=== PATIENT | female | born 1955 | race Caucasian/White ===

== ENCOUNTER 2016-07-28 14:59 | Emergency (ER) | payer BC ==
[2016-07-28] MEDS ORDERED: NS 1,000 ML IV ONE (15:36)
[2016-07-28 15:51] LABS: % IMMATURE GRANULYOCYTES 0.2 % (0.0-1.1); ABSOLUTE IMMATURE GRANULOCYTES 0.02 10^3/uL (0.00-0.10); ADD DIFF? NO; ADD MORPH? NO; ADD SCAN? NO; ATYPICAL LYMPHOCYTE FLAG 20 (0-99); FRAGMENT RBC FLAG 0 (0-99); HEMATOCRIT 36.9 % (38.0-47.0); HEMOGLOBIN 12.3 g/dL (12.6-16.3); LEFT SHIFT FLG 0 (0-99); LIPEMIA HEMOLYSIS FLAG 80 (0-99); MEAN CELL HEMOGLOBIN 30.4 pg (27.9-34.1); MEAN CELL HEMOGLOBIN CONCENTR. 33.3 g/dL (32.4-36.7); MEAN CELL VOLUME 91.1 fL (81.5-99.8); MEAN PLATELET VOLUME 11.3 fL (8.7-11.7); PLATELET CLUMPS FLAG 0 (0-99); PLATELET COUNT 283 10^3/uL (150-400); RED BLOOD CELL COUNT 4.05 10^6/uL (4.18-5.33); RED CELL DISTRIBUTION WIDTH 12.9 % (11.5-15.2)
[2016-07-28 16:10] LABS: ALANINE AMINOTRANSFERASE 29 IU/L (9-52); ALBUMIN 4.5 g/dL (3.5-5.0); ALKALINE PHOSPHATASE 63 IU/L (38-126); ANION GAP 12 mEq/L (8-16); ASPARTATE AMINOTRANSFERASE 17 IU/L (14-46); BILIRUBIN,TOTAL 0.7 mg/dL (0.1-1.4); BILIRUBIN-CONJUGATED 0.3 mg/dL (0.0-0.5); BILIRUBIN-UNCONJUGATED 0.4 mg/dL (0.0-1.1); CALCIUM 10.4 mg/dL (8.5-10.4); CARBON DIOXIDE 24 mEq/l (22-31); CHLORIDE 105 mEq/L (97-110); CREATININE 0.9 mg/dL (0.6-1.0); GLOMERULAR FILTRATION RATE > 60; GLUCOSE 104 mg/dL (70-100); POTASSIUM 4.1 mEq/L (3.5-5.2); SODIUM 141 mEq/L (134-144); TOTAL PROTEIN 6.9 g/dL (6.3-8.2)
[2016-07-28] MEDS ORDERED: GASTROVIEW 30 ML UNIT PO ONE (16:40)
[2016-07-28] MEDS ORDERED: ONDANSETRON 4 MG/2 ML VIAL IVP ONE (16:44)
--- NOTE | 2016-07-28 16:44 | EDPHY ---
H & P Time Seen by Provider: 07/28/16 15:36 HPI/ROS: CHIEF COMPLAINT: Right upper quadrant pain HISTORY OF PRESENT ILLNESS: 61-year-old female presents with right upper quadrant pain. Onset of moderate pain at 12:30 p.m. this morning. The pain has been waxing and waning since then and is currently 6/10. Associated with nausea. She ate breakfast and lunch today, which did not exacerbate the pain. No prior similar episodes. No other associated symptoms or known alleviating/ aggravating factors. REVIEW OF SYSTEMS: Constitutional: No fever, no chills Eyes: No visual changes ENT: No sore throat Respiratory: No cough, no shortness of breath Cardiac: No chest pain Genitourinary: no dysuria Musculoskeletal: No leg pain or swelling Skin: No rash Neurological: No headache, no weakness Psychiatric: No depression Past Medical/Surgical History: Hysterectomy Diabetes Social History: Lives alone PCP: Dr. Jean Smoking Status: Never smoked Physical Exam: General Appearance: Alert, pleasant Eyes: Pupils equal and round, no conjunctival pallor ENT, Mouth: Mucous membranes moist Neck: Normal inspection Respiratory: Lungs are clear to auscultation Cardiovascular: Regular rate and rhythm Gastrointestinal: Abdomen is soft, right upper quadrant tenderness Neurological: A&O, nonfocal, normal gait Skin: Warm and dry Extremities: normal inspection Psychiatric: Mood and affect normal Constitutional: Initial Vital Signs Temperature (C) 36.4 C 07/28/16 15:15 Heart Rate 70 07/28/16 15:15 Respiratory Rate 18 07/28/16 15:15 Blood Pressure 146/97 H 07/28/16 15:15 O2 Sat (%) 99 07/28/16 15:15 O2 Delivery Mode Room Air Allergies/Adverse Reactions: cephalexin monohydrate [From Keflex] Allergy (Verified 07/28/16 15:15) Penicillins Allergy (Verified 05/26/15 07:55) Home Medications: Medication Instructions Recorded Atorvastatin Calcium [Lipitor] 05/26/15 Fluticasone Hfa 110 Mcg 05/26/15 Hydrochlorothiazide [HCTZ (*)] 05/26/15 Loratadine [Claritin] 05/26/15 Losartan Potassium [Cozaar] 05/26/15 Montelukast Sodium [Singulair] 05/26/15 Oxybutynin Chloride [Ditropan] 05/26/15 Hydrocodone/APAP 5/325 [[place] 1 - 2 tab PO Q4H PRN #15 tab 07/28/16 5/325] Medical Decision Making - Diagnostics Imaging: Right upper quadrant ultrasound read by Dr. Finnegan reveals a pancreatic cyst and a dilated pancreatic duct, no gallstones CT scan of the abdomen and pelvis read by the radiologist reveals a 5 x 4 cm mass at the head of the pancreas. ED Course/Re-evaluation: This pt presents with RUQ pain, RUQ sono ordered to r/o gallstones. Ultrasound results discussed with the patient. Morphine and Zofran IV given for pain control. CT scan of the abdomen ordered to further evaluate the pancreatic cyst. LFT's/lipase normal; no evidence of obstruction. CT scan concerning for pancreatic cancer. Results were discussed with the patient. I consulted Dr. Braden Whitley. He will call the patient to arrange for biopsy. Abd exam unchanged on d/c. Differential Diagnosis: Differential diagnosis includes though it is not limited to appendicitis, cholecystitis, diverticulitis, pyelonephritis, bowel perforation, small bowel obstruction. - Data Points Laboratory Results: Laboratory Results 07/28/16 15:41 07/28/16 15:41 Medications Given: Discontinued Medications Diatrizoate Meglum/Diatrizoate Sod (Gastroview 66-10 Soln) 30 ml PO EDNOW ONE Stop: 07/28/16 16:41 Last Admin: 07/28/16 16:45 Dose: 30 ml Sodium Chloride (Ns) 1,000 mls @ 0 mls/hr IV ONCE ONE PRN Reason: Wide Open Stop: 07/28/16 15:37 Last Admin: 07/28/16 15:50 Dose: 1,000 mls Morphine Sulfate (Morphine) 4 mg IVP EDNOW ONE Stop: 07/28/16 16:45 Last Admin: 07/28/16 16:49 Dose: 4 mg Ondansetron HCl (Zofran) 4 mg IVP EDNOW ONE Stop: 07/28/16 16:45 Last Admin: 07/28/16 16:49 Dose: 4 mg Departure - Departure Disposition: Home, Routine, Self-Care Clinical Impression: Pancreatic mass Condition: Good Instructions: Hydrocodone/Acetaminophen (By mouth), Abdominal Pain (ED) Referrals: Prashant Jean MD [Primary Care Provider] - As per Instructions Braden Whitley MD, FACG [Medical Doctor] - As per Instructions ([facility] will call you with an appointment time.) Prescriptions: Hydrocodone/APAP 5/325 [[place] 5/325] 1 - 2 tab PO Q4H PRN #15 tab PRN Reason: Pain, Moderate
[2016-07-28] MEDS ORDERED: IOPAMIDOL (ISOVUE-300) 100 ML BTL IV ONE (17:19)
[2016-07-28 17:48] VITALS: RESP 16
[2016-07-28 20:02] VITALS: BP 134/78; PULSE 78; TEMP 98.6; O2SAT 97
== END 2016-07-28 20:01 | disposition home or self-care (01) ==
DX: K86.89 Other specified diseases of pancreas (principal); E11.9 Type 2 diabetes mellitus without complications
CPT/HCPCS: 96374; Q9967

== ENCOUNTER 2016-08-02 13:03 | Day surgery (SDC) | payer BC ==
[2016-08-02] MEDS ORDERED: MIDAZOLAM 2 MG/2 ML VIAL ONE (14:29)
[2016-08-02] MEDS ORDERED: PROPOFOL/EMULSION 500 MG/50 ML BOTTLE IV ONE (14:29)
[2016-08-02] MEDS ORDERED: LIDOCAINE 2% 5 ML SDV ONE (14:52)
[2016-08-02] MEDS ORDERED: PROPOFOL 200 MG/20 ML VIAL ONE ×2 (15:04)
--- NOTE | 2016-08-02 19:16 | GPN ---
[f rep st] PROCEDURE NOTE PREPROCEDURE DIAGNOSIS: Pancreatic neck mass. POSTPROCEDURE DIAGNOSIS: Pancreatic neck mass. PROCEDURES: Esophagogastroduodenoscopy with biopsies, endoscopic ultrasound with fine-needle aspira tion. MEDICATIONS: Monitored anesthesia care. INDICATION: The patient is a 61-year-old female, who presented to the emergency room with abdominal pain. CT scan of the abdomen showed a 5.1 x 4.2 cm mass in the pancreatic head and body. The mass was adjacent to the splenic artery associated with narrowing. There was also narrowing of the hepa tic artery. The patient is here for EUS FNA biopsy. The risks and the benefits of the procedure we re discussed with the patient. Consent obtained. Risks include, but not limited to, bleeding, perf oration, risks associated with sedation. The patient is ASA class 3. DESCRIPTION OF PROCEDURE: The end-viewing endoscope went into the esophagus, into the stomach and s econd portion of the duodenum. The esophagus appears normal. The GE junction is normal. There is erythema and erosions in the stomach consistent with gastritis. Biopsies were taken using cold biop sy forceps of the gastric mucosa to evaluate for Helicobacter pylori. The duodenum and second porti on were normal. Next, the curvilinear echo endoscope was inserted into the esophagus, into stomach, and second portion of the duodenum. Ultrasound examination of the esophagus, stomach and duodenum were performed. There was a large pancreatic neck body mass measuring 31.8 mm x 31.9 mm. The mass abuts the portal splenic confluence in the hepatic artery. No lymphadenopathy was seen. Next, 2 bi opsies were taken using 22-gauge FNA needle from within the duodenal bulb of the mass. Color Dopple r was used. Stylette was used. Pathologist was present. The cellularity was thought to be adequat e for evaluation. A 2nd 22-gauge FNA needle was used to biopsy the lesion from within the gastric c urvature as well to ensure adequate sampling. There was distal pancreatic body and tail atrophy wit h pancreatic duct dilation. IMPRESSION: Pancreatic neck body mass measuring 31.8 mm x 31.9 mm with abutment of the portal splen ic confluence and splenic artery, status post fine-needle aspiration biopsy. RECOMMENDATIONS: 1. Follow up the final biopsy results. 2. Consultation with Medical and Surgical Oncology. 3. Although her liver function tests are normal and her bile duct is not yet dilated, she may need ERCP with biliary stent in the near future. If she develops jaundice or abnormal liver function adalid ts, we will arrange for stent placement across her bile duct. Thank you for allowing me to participate in the care of your patient. Please do not hesitate to nissa helm with questions. /[id number]/MODL
== END 2016-08-02 17:10 | disposition home health service (06) ==
LOC: FSGY 13:03
PROVIDERS: ATTEND Internal Medicine Gastroenterology
PROC: 0FBG4ZX Excision of Pancreas, Percutaneous Endoscopic Approach, Diagnostic (ICD-10-PCS; principal; 2016-08-02 14:45)
PROC: 0DB68ZX Excision of Stomach, Via Natural or Artificial Opening Endoscopic, Diagnostic (ICD-10-PCS; principal; 2016-08-02 14:45)
DX: K86.9 Disease of pancreas, unspecified (principal); E11.9 Type 2 diabetes mellitus without complications; I10 Essential (primary) hypertension; E66.9 Obesity, unspecified
CPT/HCPCS: J2250; J2704

== ENCOUNTER → 2016-08-16 | Outpatient (CLI) | payer BC | LOC: FIMAGING 14:30 | PROVIDERS: ATTEND Surgery | DX: Z45.2 Encounter for adjustment and management of vascular access device (principal); K86.9 Disease of pancreas, unspecified ==

== ENCOUNTER → 2016-08-30 | Outpatient (CLI) | payer BC | LOC: FIMAGING 13:13 | PROVIDERS: ATTEND Nurse Practitioner | DX: R60.9 Edema, unspecified (principal); C25.9 Malignant neoplasm of pancreas, unspecified ==

== ENCOUNTER → 2016-10-15 | Outpatient (CLI) | payer BC | LOC: FIMAGING 15:30 | PROVIDERS: ATTEND Nurse Practitioner | DX: R60.9 Edema, unspecified (principal) ==

== ENCOUNTER → 2018-03-10 | Outpatient (CLI) | payer BC | LOC: FIMAGING 14:59 | PROVIDERS: ATTEND Internal Medicine Hematology & Oncology | DX: K86.9 Disease of pancreas, unspecified (principal); K83.8 Other specified diseases of biliary tract ==

== ENCOUNTER 2018-05-19 07:40 | Inpatient (IN) | payer BC ==
[2018-05-19 09:12] LABS: PLATELET COUNT 197 10^3/uL (150-400)
[2018-05-19] MEDS ORDERED: ONDANSETRON 4 MG/2 ML VIAL IVP ONE (09:16)
[2018-05-19] MEDS ORDERED: HYDROmorphONE/DILAUDID 1 MG/ML INJ IVP ONE (09:16)
--- NOTE | 2018-05-19 09:19 | EDPHY ---
H & P Stated Complaint: hx pancreatic cancer awakened today with ruq abd pain Time Seen by Provider: 05/19/18 09:04 HPI/ROS: CHIEF COMPLAINT: Right upper quadrant abdominal pain since 4:00 a.m. Today HISTORY OF PRESENT ILLNESS: 63-year-old female history of pancreatic cancer, history of biliary duct stent in March, awoke with right upper quadrant constant sharp stabbing pain at 4:00 a.m. today. Not described as pleuritic. No radiation. No nausea or vomiting. Bowel movements normal. No dyspnea. No syncope or near syncope. No peripheral edema. No cold or flu-like symptoms Last oral intake last night Primary oncology: Dr. Mariano Dumont REVIEW OF SYSTEMS: 10 systems reviewed and negative with the exception of the elements mentioned in the history of present illness PAST MEDICAL & SURGICAL HISTORY: Pancreatic cancer. Biliary duct stent. Appendectomy. SOCIAL HISTORY: Nonsmoker PHYSICAL EXAM (Prior to examination, patient consented to physical exam, hands were washed and my usual and customary physical exam procedures followed) 1) GENERAL: Well-developed, well-nourished, alert and oriented. Appears to be in no acute distress. 2) HEAD: Normocephalic, atraumatic 3) HEENT: Pupils equal, round, reactive to light bilaterally. Sclera anicteric. Nasopharynx, oropharynx, clear, no lesions. Dry mucous membranes. 4) NECK: Full range of motion, no meningeal signs. 5) LUNGS: Clear auscultation bilaterally, no wheezes, no rhonchi, no retractions. 6) HEART: Regular rate and rhythm, no murmur, no heave, no gallop. 7) ABDOMEN: No guarding, tender to palpation right upper quadrant, negative McBurney's, negative Rovsing's, negative peritoneal sign, 8) MUSCULOSKELETAL: Moving all extremities, no focal areas of tenderness, no obvious trauma. No peripheral edema or discoloration. 9) BACK: No CVA tenderness, no midline vertebral tenderness, no fluctuance, no step-off, no obvious trauma, no visual or palpable abnormality. 10) SKIN: No rash, no petechiae. 11) Psychiatric: Patient is oriented X 3, there is no agitation. DIFFERENTIAL DIAGNOSIS: In no particular order including but not limited to pulmonary embolus, acute cholecystitis, choledocholithiasis - Personal History Current Tetanus Diphtheria and Acellular Pertussis (TDAP): Yes - Medical/Surgical History Hx Asthma: No Hx Chronic Respiratory Disease: No Hx Diabetes: No Hx Cardiac Disease: No Hx Renal Disease: No Hx Cirrhosis: No Hx Alcoholism: No Hx HIV/AIDS: No Hx Splenectomy or Spleen Trauma: No Other PMH: PMH: HTN, high chol, arthritis. PSH: hysterectomy, cyst removal, tonsels, appy, dental. pancreatic cancer - Social History Smoking Status: Never smoked Constitutional: Initial Vital Signs Temperature (C) 36.8 C 05/19/18 07:44 Heart Rate 78 05/19/18 07:44 Respiratory Rate 18 05/19/18 07:44 Blood Pressure 118/79 05/19/18 07:44 O2 Sat (%) 98 05/19/18 07:44 O2 Delivery Mode Room Air Allergies/Adverse Reactions: cephalexin monohydrate [From Keflex] Allergy (Verified 05/19/18 14:26) Rash Penicillins Allergy (Verified 05/19/18 14:26) Rash Yeast Allergy (Verified 05/19/18 07:43) Home Medications: Medication Instructions Recorded Hydrochlorothiazide [HCTZ (*)] DAILY 05/26/15 Acetaminophen [Tylenol ES 500 mg 1,000 mg PO Q8H PRN 05/19/18 (*)] Ascorbic Acid [Vitamin C] 1,000 mg PO DAILY 05/19/18 Atorvastatin Calcium [Lipitor 10 10 mg PO DAILY 05/19/18 mg (*)] Cholecalciferol Vit D3 [Vitamin D3 1,000 units PO DAILY 05/19/18 (*)] Cyanocobalamin [Vitamin B12 (*)] 1,000 mcg PO DAILY 05/19/18 Gabapentin [Neurontin 300 MG (*)] 600 mg PO HS 05/19/18 Loratadine [Claritin 10 mg] 10 mg PO DAILY PRN 05/19/18 Losartan Potassium [Cozaar 25 mg 25 mg PO DAILY 05/19/18 (*)] Montelukast Sodium [Singulair 10 10 mg PO DAILY PRN 05/19/18 mg (*)] Oxybutynin Chloride [Ditropan Xl] 10 mg PO DAILY 05/19/18 Potassium Cl [Klor-Con] 10 meq PO BID 05/19/18 Medical Decision Making - Diagnostics Imaging Results: Imaging Impressions Chest X-Ray 05/19/18 07:56 Impression: There is no acute intrathoracic abnormality. Abdomen CT 05/19/18 09:36 Impression: Chest: 1. No evidence of pulmonary embolism or pneumonia. Abdomen: 1. 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 Intrahepatic portal veins are patent. 2. Interval placement of metal biliary stent with gallbladder findings concerning for acute cholecystitis. 3. Thick-walled, edematous cecum may be secondary to adjacent gallbladder inflammation, however concomitant typhlitis is an additional consideration in a neutropenic patient. Pelvis: 1. Moderate ascites without adenopathy or mass. Maria C Parada was notified of these findings by telephone at 11:30 AM on 05/19/2018 Chest/Thorax CTA 05/19/18 09:36 Impression: Chest: 1. No evidence of pulmonary embolism or pneumonia. Abdomen: 1. 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 Intrahepatic portal veins are patent. 2. Interval placement of metal biliary stent with gallbladder findings concerning for acute cholecystitis. 3. Thick-walled, edematous cecum may be secondary to adjacent gallbladder inflammation, however concomitant typhlitis is an additional consideration in a neutropenic patient. Pelvis: 1. Moderate ascites without adenopathy or mass. Maria C Parada was notified of these findings by telephone at 11:30 AM on 05/19/2018 Abdomen Ultrasound 05/19/18 11:40 Impression: 1. Gallbladder distention with wall thickening and internal sludge/debris, new since February. Findings are suspicious for early acute cholecystitis. 2. Large pancreatic mass, incompletely seen by ultrasound. The biliary stent contains internal debris and possible tumor infiltration. There is mild central intrahepatic ductal dilatation on the right. Pneumobilia is seen on the left. 3. Cavernous transformation of the portal vein. 4. Small volume ascites. Findings and recommendations discussed with Valencia Parker at 1402 hour, 05/19. Images reviewed myself ED Course/Re-evaluation: 9:18 a.m.: I reviewed the patient's old medical records. Patient has a history of pancreatic cancer. Patient I discussed possible etiologies for symptoms which include, but not limited to, biliary pathology, peripheral pulmonary embolus. High pretest probability for pulmonary embolus. D-dimer was ordered prior to my evaluating the patient. Recommended CT angiography of the chest as well as abdomen and pelvis. More than likely hospitalization. Care of patient under supervision of secondary supervising physician Dr Neelima Pascual with whom I discussed case. 11:40 a.m.: Imaging results of the chest abdomen pelvis is negative for PE, elan cholecystic fluid noted concerning for possible acute cholecystitis. Radiologist recommended ultrasound. This will be ordered. 2:00 p.m.: Ultrasound imaging shows gallbladder wall thickening, pericholecystic fluid, equivocal findings possible early acute cholecystitis. Will consult with surgery 2:10 p.m.: Consultation with hospitalist Dr. Richardson Yi who will admit patient 2:14 p.m.: Consultation with surgeon Dr. Norman who will consult - Data Points Laboratory Results: Laboratory Results 05/19/18 08:50 05/19/18 08:50 05/19/18 05/19/18 05/19/18 09:00 08:50 08:50 WBC RBC Hgb Hct MCV MCH MCHC RDW Plt Count MPV Neut % (Auto) Lymph % (Auto) [place] % (Auto) Eos % (Auto) Baso % (Auto) Nucleat RBC Rel Count Absolute Neuts (auto) Absolute Lymphs (auto) Absolute Monos (auto) Absolute Eos (auto) Absolute Basos (auto) Absolute Nucleated RBC Immature Gran % Immature Gran # D-Dimer 1.06 ug/mLFEU H ug/mLFEU (0.00-0.50) Sodium 138 mEq/L mEq/L (135-145) Potassium 3.3 mEq/L L mEq/L (3.5-5.2) Chloride 105 mEq/L mEq/L (97-110) Carbon Dioxide 23 mEq/l mEq/l (22-31) Anion Gap 10 mEq/L mEq/L (6-14) BUN 18 mg/dL mg/dL (7-23) Creatinine 0.8 mg/dL mg/dL (0.6-1.0) Estimated GFR > 60 Glucose 134 mg/dL H mg/dL (70-100) Calcium 9.8 mg/dL mg/dL (8.5-10.4) Total Bilirubin 1.1 mg/dL mg/dL (0.1-1.4) Conjugated Bilirubin 0.4 mg/dL mg/dL (0.0-0.5) Unconjugated Bilirubin 0.7 mg/dL mg/dL (0.0-1.1) AST 21 IU/L IU/L (14-46) ALT 27 IU/L IU/L (9-52) Alkaline Phosphatase 124 IU/L IU/L (38-126) POC Troponin I 0.01 ng/mL ng/mL (0.00-0.08) NT-Pro-B Natriuret Pep 275 pg/mL H pg/mL (0-125) Total Protein 6.6 g/dL g/dL (6.3-8.2) Albumin 3.8 g/dL g/dL (3.5-5.0) Lipase 12 IU/L L IU/L (23-300) 05/19/18 08:50 WBC 6.91 10^3/uL 10^3/uL (3.80-9.50) RBC 3.91 10^6/uL L 10^6/uL (4.18-5.33) Hgb 11.6 g/dL L g/dL (12.6-16.3) Hct 34.8 % L % (38.0-47.0) MCV 89.0 fL fL (81.5-99.8) MCH 29.7 pg pg (27.9-34.1) MCHC 33.3 g/dL g/dL (32.4-36.7) RDW 15.2 % % (11.5-15.2) Plt Count 197 10^3/uL 10^3/uL (150-400) MPV 11.6 fL fL (8.7-11.7) Neut % (Auto) 58.8 % % (39.3-74.2) Lymph % (Auto) 25.9 % % (15.0-45.0) [place] % (Auto) 10.4 % % (4.5-13.0) Eos % (Auto) 4.1 % % (0.6-7.6) Baso % (Auto) 0.7 % % (0.3-1.7) Nucleat RBC Rel Count 0.0 % % (0.0-0.2) Absolute Neuts (auto) 4.06 10^3/uL 10^3/uL (1.70-6.50) Absolute Lymphs (auto) 1.79 10^3/uL 10^3/uL (1.00-3.00) Absolute Monos (auto) 0.72 10^3/uL 10^3/uL (0.30-0.80) Absolute Eos (auto) 0.28 10^3/uL 10^3/uL (0.03-0.40) Absolute Basos (auto) 0.05 10^3/uL 10^3/uL (0.02-0.10) Absolute Nucleated RBC 0.00 10^3/uL 10^3/uL (0-0.01) Immature Gran % 0.1 % % (0.0-1.1) Immature Gran # 0.01 10^3/uL 10^3/uL (0.00-0.10) D-Dimer Sodium Potassium Chloride Carbon Dioxide Anion Gap BUN Creatinine Estimated GFR Glucose Calcium Total Bilirubin Conjugated Bilirubin Unconjugated Bilirubin AST ALT Alkaline Phosphatase POC Troponin I NT-Pro-B Natriuret Pep Total Protein Albumin Lipase Medications Given: Discontinued Medications Hydromorphone HCl (Dilaudid) 1 mg IVP EDNOW ONE Stop: 05/19/18 09:17 Last Admin: 05/19/18 09:30 Dose: 1 mg Hydromorphone HCl (Dilaudid) 1 mg IVP EDNOW ONE Stop: 05/19/18 14:03 Last Admin: 05/19/18 14:12 Dose: 1 mg Ondansetron HCl (Zofran) 4 mg IVP EDNOW ONE Stop: 05/19/18 09:17 Last Admin: 05/19/18 09:28 Dose: 4 mg Point of Care Test Results: Chemistry 05/19/18 09:00 POC Troponin I 0.01 ng/mL ng/mL (0.00-0.08) Departure - Departure Disposition: [facility] Acute Clinical Impression: Possible acute cholecystitis, History of pancreatic cancer Condition: Fair
[2018-05-19] MEDS ORDERED: IOPAMIDOL (ISOVUE 370) 100 ML BTL IV ONE (09:40)
[2018-05-19] MEDS ORDERED: HYDROmorphONE/DILAUDID 2 MG/ML INJ IVP ONE (14:02)
--- NOTE | 2018-05-19 14:46 | CPEKG ---
Test Reason : OPEN Blood Pressure : / mmHG Vent. Rate : 069 BPM Atrial Rate : 069 BPM P-R Int : 177 ms QRS Dur : 102 ms QT Int : 426 ms P-R-T Axes : 057 066 056 degrees QTc Int : 457 ms Sinus rhythm Low voltage, precordial leads Confirmed by Neelima Pascual ([id number]) on 05/19/2018 2:45:40 PM Referred By: Confirmed By:Neelima Pascual
[2018-05-19] MEDS ORDERED: ACETAMINOPHEN 325 MG TAB PO PRN (14:55)
[2018-05-19] MEDS ORDERED: ONDANSETRON 4 MG/2 ML VIAL IVP PRN (14:55)
[2018-05-19] MEDS ORDERED: ONDANSETRON DISINTEGRATING 4 MG TAB PO PRN (14:55)
[2018-05-19] MEDS ORDERED: MONTELUKAST SODIUM 10 MG TAB PO PRN (14:56)
[2018-05-19] MEDS ORDERED: PROTOCOL POTASSIUM 1 DOSE MISC PRN (14:58)
--- NOTE | 2018-05-19 15:27 | PDGENHP ---
History and Physical - Chief Complaint RUQ pain - History of Present Illness 63yo F with history of pancreatic cancer, CBD stent here with acute onset RUQ pain. Woke her up from sleep at 4am. No radiation. No associated n/v/d but pain making her feel miserable so came to ED. Was feeling a little fatigued yesterday with minimal appetite so didn't eat much for dinner. Denies unusual food exposures, fevers/chills, rashes. No respiratory symptoms. She has not been on chemotherapy since 08/2016. She had CBD stent placed 03/16/2018 due to biliary obstruction related to her cancer. In the ED, abdominal CT shows findings consistent with early acute cholecystitis. RUQ ultrasound shows sludge in gallbladder and debris within CBD stent. ED provider consulted Dr Norman of surgery. History Information - Allergies/Home Medication List Allergies/Adverse Reactions: cephalexin monohydrate [From Keflex] Allergy (Verified 05/19/18 14:26) Rash Penicillins Allergy (Verified 05/19/18 14:26) Rash Yeast Allergy (Verified 05/19/18 07:43) Home Medications: Hydrochlorothiazide [HCTZ (*)] 25 mg PO DAILY 05/26/15 [Last Taken Unknown] Acetaminophen [Tylenol ES 500 mg (*)] 1,000 mg PO Q8H PRN 05/19/18 [Last Taken Unknown] Ascorbic Acid [Vitamin C] 1,000 mg PO DAILY 05/19/18 [Last Taken Unknown] Atorvastatin Calcium [Lipitor 10 mg (*)] 10 mg PO DAILY 05/19/18 [Last Taken Unknown] Cholecalciferol Vit D3 [Vitamin D3 (*)] 1,000 units PO DAILY 05/19/18 [Last Taken Unknown] Cyanocobalamin [Vitamin B12 (*)] 1,000 mcg PO DAILY 05/19/18 [Last Taken Unknown ] Gabapentin [Neurontin 300 MG (*)] 600 mg PO HS 05/19/18 [Last Taken Unknown] Loratadine [Claritin 10 mg] 10 mg PO DAILY PRN 05/19/18 [Last Taken Unknown] Losartan Potassium [Cozaar 25 mg (*)] 25 mg PO DAILY 05/19/18 [Last Taken Unknown] Montelukast Sodium [Singulair 10 mg (*)] 10 mg PO DAILY PRN 05/19/18 [Last Taken Unknown] Oxybutynin Chloride [Ditropan Xl] 10 mg PO DAILY 05/19/18 [Last Taken Unknown] Potassium Cl [Klor-Con] 10 meq PO BID 05/19/18 [Last Taken Unknown] I have personally reviewed and updated: family history, medical history, social history, surgical history Past Medical History: pancreatic cancer (diagnosed 07/2016, followed by Dr Dumont , underwent chemo and XRT, last on chemo 08/2017), HTN - Surgical History Additional surgical history: CBD stent placement, no abdominal surgeries - Family History Positive for: non-pertinent - Social History Smoking Status: Never smoked Alcohol Use: None Drug Use: None Additional social history: Lives alone, sister (CHAYO Urena) at bedside Review of Systems Review of Systems: ROS: 10pt was reviewed & negative except for what was stated in HPI & below Physical Exam Physical Exam: Temp Pulse Resp BP Pulse Ox 36.8 C 88 16 123/74 H 93 05/19/18 07:44 05/19/18 14:36 05/19/18 14:36 05/19/18 14:36 05/19/18 14:36 Constitutional: no apparent distress, appears nourished, not in pain Eyes: PERRL, anicteric sclera, EOMI Ears, Nose, Mouth, Throat: moist mucous membranes, hearing normal, ears appear normal, no oral mucosal ulcers Cardiovascular: regular rate and rhythym, no murmur, rub, or gallop, No edema Respiratory: no respiratory distress, no rales or rhonchi, clear to auscultation Gastrointestinal: tenderness (RUQ without rebuond, ), kingsley's sign, No distension Genitourinary: no bladder fullness, no bladder tenderness Skin: warm, normal color, no rashes or abrasions, no fluctuance, no induration, No mottled Musculoskeletal: full muscle strength, no muscle tenderness, normal joint ROM, no joint effusions Neurologic: AAOx3 Psychiatric: interacting appropriately, not anxious, not encephalopathic, thought process linear Lab Data & Imaging Review 05/19/18 08:50 05/19/18 08:50 WBC 6.91 10^3/uL (3.80-9.50) 05/19/18 08:50 RBC 3.91 10^6/uL (4.18-5.33) L 05/19/18 08:50 Hgb 11.6 g/dL (12.6-16.3) L 05/19/18 08:50 Hct 34.8 % (38.0-47.0) L 05/19/18 08:50 MCV 89.0 fL (81.5-99.8) 05/19/18 08:50 MCH 29.7 pg (27.9-34.1) 05/19/18 08:50 MCHC 33.3 g/dL (32.4-36.7) 05/19/18 08:50 RDW 15.2 % (11.5-15.2) 05/19/18 08:50 Plt Count 197 10^3/uL (150-400) 05/19/18 08:50 MPV 11.6 fL (8.7-11.7) 05/19/18 08:50 Neut % (Auto) 58.8 % (39.3-74.2) 05/19/18 08:50 Lymph % (Auto) 25.9 % (15.0-45.0) 05/19/18 08:50 Brewster % (Auto) 10.4 % (4.5-13.0) 05/19/18 08:50 Eos % (Auto) 4.1 % (0.6-7.6) 05/19/18 08:50 Baso % (Auto) 0.7 % (0.3-1.7) 05/19/18 08:50 Nucleat RBC Rel Count 0.0 % (0.0-0.2) 05/19/18 08:50 Absolute Neuts (auto) 4.06 10^3/uL (1.70-6.50) 05/19/18 08:50 Absolute Lymphs (auto) 1.79 10^3/uL (1.00-3.00) 05/19/18 08:50 Absolute Monos (auto) 0.72 10^3/uL (0.30-0.80) 05/19/18 08:50 Absolute Eos (auto) 0.28 10^3/uL (0.03-0.40) 05/19/18 08:50 Absolute Basos (auto) 0.05 10^3/uL (0.02-0.10) 05/19/18 08:50 Absolute Nucleated RBC 0.00 10^3/uL (0-0.01) 05/19/18 08:50 Immature Gran % 0.1 % (0.0-1.1) 05/19/18 08:50 Immature Gran # 0.01 10^3/uL (0.00-0.10) 05/19/18 08:50 D-Dimer 1.06 ug/mLFEU (0.00-0.50) H 05/19/18 08:50 Sodium 138 mEq/L (135-145) 05/19/18 08:50 Potassium 3.3 mEq/L (3.5-5.2) L 05/19/18 08:50 Chloride 105 mEq/L (97-110) 05/19/18 08:50 Carbon Dioxide 23 mEq/l (22-31) 05/19/18 08:50 Anion Gap 10 mEq/L (6-14) 05/19/18 08:50 BUN 18 mg/dL (7-23) 05/19/18 08:50 Creatinine 0.8 mg/dL (0.6-1.0) 05/19/18 08:50 Estimated GFR > 60 05/19/18 08:50 Glucose 134 mg/dL (70-100) H 05/19/18 08:50 Calcium 9.8 mg/dL (8.5-10.4) 05/19/18 08:50 Total Bilirubin 1.1 mg/dL (0.1-1.4) 05/19/18 08:50 Conjugated Bilirubin 0.4 mg/dL (0.0-0.5) 05/19/18 08:50 Unconjugated Bilirubin 0.7 mg/dL (0.0-1.1) 05/19/18 08:50 AST 21 IU/L (14-46) 05/19/18 08:50 ALT 27 IU/L (9-52) 05/19/18 08:50 Alkaline Phosphatase 124 IU/L (38-126) 05/19/18 08:50 POC Troponin I 0.01 ng/mL (0.00-0.08) 05/19/18 09:00 NT-Pro-B Natriuret Pep 275 pg/mL (0-125) H 05/19/18 08:50 Total Protein 6.6 g/dL (6.3-8.2) 05/19/18 08:50 Albumin 3.8 g/dL (3.5-5.0) 05/19/18 08:50 Lipase 12 IU/L (23-300) L 05/19/18 08:50 Visualized and Interpreted imaging results: Yes Interpretation: RUQ US: gallbladder distention with wall thickening and internal slugde, new since February. Large pancreatic mass. Biliary stent contains internal debris and possible tumor infiltration; pneumobilia on the left. Cavernous transformation of portal vein. Small volume ascites. CT c/a/p: No PE or pneumonia. Progression of pancreatic tumor with development of ascites and cavernous transformation of main portal vein. Intraphepatic portal veins. Interval placement of metal biliary stent wtih gallbladder findings concerning for acute cholecystitis. Thick walled edematous cecum. Moderate ascites. Assessment & Plan Assessment: 63yo F with history of pancreatic cancer, CBD stent here with acute onset RUQ pain found to have imaging findings consistent with early acute cholecystitis. Plan: 1. Acute RUQ pain with concern for acute cholecystitis: Sludge in gallbladder. - Surgery (Dr Norman) consulted - Pain control with IV dilaudid, IV anti-emetics - NPO for possible intervention 2. Recent biliary obstruction s/p CBD stent: LFTs ok. She does have some debris in stent. Pneumobilia on imaging likely from recent intervention, less likely gas-producing infection. - May need repeat ERCP to clear out debris/replace stent. Will wait to consult GI pending mgmt of above - Follow LFTs 3. Pancreatic cancer: CT shows progression with new ascites compared to 07/[address] Dumont, not receiving therapy. - Alert oncology of admission 4. Hypokalemia: R/t poor PO - Place on protocol 5. Anemia: H/H stable and actually above recent baseline. Monitor. 6. HTN: BP ok, continue meds. VTE ppx: SCDs Code: full. She reports having advanced directive but is unsure what this states. Her sister, CHAYO Melgar, will bring this in but will be full code for the time being. Diet: NPO Dispo: Admit under observation
--- NOTE | 2018-05-19 16:33 | ASMTCMCOM ---
CM Note CM Note Notes: Chart reviewed. 63 year old female admitted via ED with pain. History of pancreatic cancer presents with acute cholecystitis. Surgery to consult. CM to follow for needs, Plan: TBD Date Signed: 05/19/2018 04:32 PM Electronically Signed By:Mare Soliman RN
--- NOTE | 2018-05-19 17:20 | PDCONSULT ---
[employer] Note: Consultation at the request of Dr. Yi for right upper quadrant abdominal pain possible cholecystitis Chief complaint: Right upper quadrant abdominal pain History of present illness: This is a 63-year-old woman with a 2 year history of pancreatic cancer with biliary stent placement [address] Rene Cordero in [place]. The patient has had no symptoms of progressive pancreatic cancer. She presented today with acute onset of right upper quadrant pain starting a 4:00 a.m. This morning. It woke her from sleep and she was unable to get comfortable. She denied eating anything that would have precipitated biliary colic. She has not had any progressive jaundice or suggestive of stents occlusion. CT scan today demonstrates ascites and cavernous transformation of portal vein suggestive of progression of disease. Her pain is currently well controlled although she is nauseated. She has not had emesis. She has not had any food today. Past medical history: Pancreatic cancer Past surgical history: Hysterectomy, diagnostic laparoscopy Allergies: Home medications: Family history: Noncontributory Social history: Denies alcohol, tobacco or drug use Review of systems: Significant for abdominal pain otherwise negative. Denies weight loss night sweats or constitutional signs of recurrent cancer no dysphagia or early satiety. Alert oriented to person place and time Has a yellow cast but does not appear overtly jaundiced. Extraocular motions intact Regular rate and rhythm Clear to auscultation Abdomen soft tender in the right upper quadrant to deep palpation no positive Kumar sign on my exam. Well-healed lower midline scar from previous surgery. No line no peripheral edema Normal range of motion and gait. Normal affect and mood. Impression/plan: Right upper quadrant abdominal pain possibilities in the differential include 1. occluded biliary stent, 2. progression of pancreatic cancer with pain near the celiac axis and 3. cholecystitis. Recommend HIDA scan for evaluation of biliary stent patency and to determine whether acute cholecystitis is present by nonfilling of the gallbladder. I have discussed this with Dr. Yi and Dr. Dumont her medical oncologist. All questions answered to this point. If she has cholecystitis will proceed to cholecystectomy prior to oncology follow-up. If she has biliary stent occlusion recommend ERCP with Dr. Rene Cordero who had placed her previous stent last year.
[2018-05-19] MEDS: HYDROmorphONE/DILAUDID 1 MG/ML INJ IVP PRN ×2 (19:07→21:27)
[2018-05-19] MEDS: oxyCODONE IR 5 MG TAB PO PRN (19:07)
[2018-05-19] MEDS: NS W/ 20 KCl/L 1,000 ML IV SCH (19:07)
[2018-05-19] MEDS: GABAPENTIN 300 MG CAP PO SCH (21:27)
[2018-05-20] MEDS ORDERED: POTASSIUM CL 20 MEQ PKT PO ONE (05:00)
[2018-05-20 05:20] LABS: PLATELET COUNT 215 10^3/uL (150-400)
[2018-05-20] MEDS ORDERED: POTASSIUM CL 10 MEQ TAB PO ONE ×2 (08:46→12:30)
[2018-05-20] MEDS ORDERED: CETIRIZINE 10 MG TAB PO PRN (09:00)
--- NOTE | 2018-05-20 09:11 | SOAPPROG ---
BRAYD Progress Note Assessment/Plan: Assessment/Plan: 63-year-old patient with pancreatic cancer presented yesterday with what appeared to be biliary colic. Since then she has had leukocytosis to 21 1000 with a left shift from a normal white count yesterday. She also reports dark urine suggestive of biliary obstruction as opposed to cholecystitis. HIDA scan is pending for this morning. Will also repeat LFTs. Empiric antibiotics with flouroquinolone, Zosyn or ceftriaxone and Flagyl may be indicated especially if biliary manipulation is to be done. Alert oriented Regular rate and rhythm Clear to auscultation Abdomen soft minimal tenderness right upper quadrant no Kumar's by my exam Await HIDA scan results Will discuss with Dr. Rene Cordero regarding ERCP if HIDA scan is positive. Less likely cholecystitis will continue to follow 05/20/18 09:10 Objective: Vital Signs Temp Pulse Resp BP Pulse Ox 37.3 C 113 H 16 110/83 H 97 05/20/18 07:29 05/20/18 07:29 05/20/18 07:29 05/20/18 07:29 05/20/18 07:29 Laboratory Results 05/20/18 04:42 05/20/18 04:42 05/19/18 05/20/18 05/21/18 05:59 05:59 05:59 Intake Total 0 511 Output Total 300 Balance -300 511 ICD10 Worksheet Patient Problems: Problems Problem Status Onset History of pancreatic cancer Acute
--- NOTE | 2018-05-20 09:47 | HOSPPROG ---
Hospitalist Progress Note Assessment/Plan: The patient is a 63-year-old female with PMH of unresectable pancreatic adenocarcinoma who was admitted for right upper quadrant abdominal pain. This patient is new to me. Reviewed patient's chart/records for this visit. ASSESSMENT/PLAN: Acute cholecystitis Acute abd pain, 2/2 above Metastatic unresectable pancreatic adenocarcinoma Malignant ascites, new -Discussed w/ Gen Surg Dr. Norman, Dr. Gordon and GI Dr. Cordero. Pt is poor candidate to undergo cholecystectomy bc of malignant ascites. -CBD stent appears to be patent on HIDA scan. Dr. Cordero said that changing the stent is a/w high risk and not much benefit. -Start IV Abx today - Merrem. -IV fluids, Clear liquid diet. -I have d/w Oncologist Dr. Sarabia who will see pt tomorrow. -Consulted Palliative. -Check AM labs. VTE prophylaxis: Code Status: DNR or Full Status: inpt for > 2 midnight stay. Disposition: [facility] ____ SUBJECTIVE: OBJECTIVE: Physical Exam: General: The patient is a female who is alert and in no acute distress. HEENT: normocephalic, extraocular movements intact, conjunctivae clear. Mucous membranes moist. Neck: trachea midline, no visible masses. Resp: unlabored. Abd: soft and nondistended. +tenderness RUQ. Musculoskeletal: Normalmuscle tone/bulk. Neuro: cranial nerves II - XII grossly intact. Intact gross motor and sensory function. Psych: appropriate mood and appropriate affect. Skin: +pallor. Labs/Imaging/Other Tests: Personally reviewed/interpreted. US Abd: 1. Gallbladder distention with wall thickening and internal sludge/debris, new since February. Findings are suspicious for early acute cholecystitis. 2. Large pancreatic mass, incompletely seen by ultrasound. The biliary stent contains internal debris and possible tumor infiltration. There is mild central intrahepatic ductal dilatation on the right. Pneumobilia is seen on the left. 3. Cavernous transformation of the portal vein. 4. Small volume ascites. CTA chest/abd/pelvis: Chest: 1. No evidence of pulmonary embolism or pneumonia. Abdomen: 1. 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 Intrahepatic portal veins are patent. 2. Interval placement of metal biliary stent with gallbladder findings concerning for acute cholecystitis. 3. Thick-walled, edematous cecum may be secondary to adjacent gallbladder inflammation, however concomitant typhlitis is an additional consideration in a neutropenic patient. Pelvis: 1. Moderate ascites without adenopathy or mass. CXR- personally interpreted - normal. Catheter noted in SVC. Objective: Vital Signs Temp Pulse Resp BP Pulse Ox 37.3 C 113 H 16 110/83 H 97 05/20/18 07:29 05/20/18 07:29 05/20/18 07:29 05/20/18 07:29 05/20/18 07:29 Laboratory Results 05/20/18 04:42 05/20/18 04:42 05/19/18 05/20/18 05/21/18 05:59 05:59 05:59 Intake Total 0 511 Output Total 300 Balance -300 511 - Time Spent With Patient Time Spent with Patient: greater than 35 minutes Time Spent with Patient: Greater than 35 minutes spent on this patients care, greater than 50% of time spent counseling, educating, and coordinating care regarding the above mentioned plan. ICD10 Worksheet Patient Problems: Problems Problem Status Onset History of pancreatic cancer Acute
[2018-05-20] MEDS: OXYBUTYNIN 5 MG EXT REL TAB PO SCH (12:28)
[2018-05-20] MEDS: HYDROCHLOROTHIAZIDE 25 MG TAB PO SCH (12:29)
[2018-05-20] MEDS: ATORVASTATIN CALCIUM 10 MG TAB PO SCH (12:29)
[2018-05-20] MEDS: MEROPENEM 1 GM in NS 100 ML IV SCH ×2 (12:30→19:28)
[2018-05-20] MEDS: LOSARTAN POTASSIUM 25 MG TAB PO SCH (12:30)
--- NOTE | 2018-05-20 13:58 | GCON ---
DATE OF CONSULTATION: 05/20/2018 REFERRING PHYSICIAN: Arnie Norman MD REASON FOR CONSULTATION: Biliary obstruction/abnormal imaging. CHIEF COMPLAINT: Right upper quadrant abdominal pain. HISTORY OF PRESENT ILLNESS: The patient is a 63-year-old female with metastatic pancreatic cancer, common bile duct obstruction with self-expanding metal stent placement in March, , who presents to [facility] with complaints of right upper quadrant abdominal pain. The patient states she was doing well until yesterday morning when she suddenly woke up and had a sharp pain in her right upper quadrant. This pain was intense and progressive and did radiate to the back. Her symptoms were worsened by movement and certain positions. She was not having any oral intake and does not know if this exacerbated her symptoms. She denies any alleviating factors of her symptoms. Her weight has been fairly stable, and she is following up with Dr. Dumont at [facility] for her pancreatic cancer. She thinks that her urine may have changed color this morning. She states that her urine has been darker. She denies any jaundice. She also denies any dysphagia, odynophagia. She has had some mild nausea. On admission, she had an abdominal CT scan which did reveal a moderate abdominal ascites as well as pneumobilia. The gallbladder was significantly distended and thick walled. Her LFTs were normal on admission. I am being asked by Dr. Norman to evaluate the patient for biliary obstruction/ cholecystitis. PAST MEDICAL HISTORY: 1. Metastatic pancreatic cancer. 2. Hyperlipidemia. 3. Hypertension. 4. Asthma. PAST SURGICAL HISTORY: ERCP with biliary stent placement. ALLERGIES: 1. Cephalexin. 2. Penicillin. 3. Yeast. MEDICATIONS: 1. Hydrochlorothiazide. 2. Acetaminophen. 3. Vitamin C. 4. Atorvastatin. 5. Vitamin D3. 6. Vitamin B12. 7. Gabapentin. 8. Loratadine. 9. Losartan. 10. Singulair. 11. Oxybutynin. FAMILY HISTORY: No history of pancreatic cancer. SOCIAL HISTORY: No significant alcohol or tobacco use. REVIEW OF SYSTEMS: A 12-point comprehensive review of systems was asked. Pertinent positives and negatives per HPI. PHYSICAL EXAM: VITALS: Blood pressure 109/69, temperature 37.4, respiration 16. GENERAL: Awake, alert, oriented x3. In no distress. HEENT: Anicteric. Moist mucosa. NECK: No JVD. CARDIOVASCULAR: Regular rate and rhythm. Positive S1, S2. No murmurs, rubs, or gallops appreciated. LUNGS: Clear to auscultation bilaterally with no wheezes, rales, or rhonchi. ABDOMEN: Tender in the right upper quadrant. No guarding, no rebound. Positive bowel sounds. EXTREMITIES: No clubbing, cyanosis, edema. NEUROLOGIC: Cranial nerves 2 through 12 intact. PSYCH: Normal affect. SKIN: No rash, no icterus. MUSCULOSKELETAL: No obvious joint deformities. LABORATORY DATA: Blood work: WBC 21.59, hemoglobin 11.9, hematocrit 37.1, platelets 215. D-dimer 1.06. Sodium 139, potassium 3.8, chloride 108, bicarb 20. BUN 21, AST 21, ALT 27, alk phos 124, lipase 12. ASSESSMENT AND PLAN: 1. Right upper quadrant pain- with normal liver function test. Does have imaging that does reveal pneumobilia and possible biliary dilation; however, alkaline phosphatase is normal. Repeat labs pending. HIDA scan also pending. Suspect that this is cholecystitis. Does have a self-expanding covered metal stent placed which may cover the cystic duct. We will follow results of HIDA scan. Can consider possibly removing the stent and placing an uncovered metal stent; however, this may not be definitive or stop the cholecystitis. The evidence does not reveal an increased risk of cholecystitis in covered versus uncovered stents. Will follow with Surgery. Consider surgical evaluation versus percutaneous exchange versus other? 2. Metastatic pancreatic cancer. 3. Hypertension. 4. Hyperlipidemia. Thank you very much for this consultation. /[id number]/MODL MTDD
--- NOTE | 2018-05-20 16:16 | PDMN ---
Medical Necessity Medical necessity: MCG: M555 gallbladder or bile duct inflammation or stone : A-2 days INPT for cholecystitis in high risk pt with unresectable pancreatic adenocarcinoma with malignant ascites, RUQ abd pain, pt to be treated with IV abx , IVF pending poss sgy- consults pending. status changed to INPT for ongoing med nec. > 2 MN.
[2018-05-20] MEDS: HYDROmorphONE/DILAUDID 1 MG/ML INJ IVP PRN (17:22)
[2018-05-20] MEDS: NS W/ 20 KCl/L 1,000 ML IV SCH (17:22)
[2018-05-20] MEDS: GABAPENTIN 300 MG CAP PO SCH (19:30)
[2018-05-21] MEDS: MEROPENEM 1 GM in NS 100 ML IV SCH ×2 (02:36→15:31)
[2018-05-21 05:29] LABS: PLATELET COUNT 233 10^3/uL (150-400)
[2018-05-21] MEDS: HYDROCHLOROTHIAZIDE 25 MG TAB PO SCH (07:53)
[2018-05-21] MEDS: OXYBUTYNIN 5 MG EXT REL TAB PO SCH (07:53)
[2018-05-21] MEDS: ATORVASTATIN CALCIUM 10 MG TAB PO SCH (07:53)
[2018-05-21] MEDS: LOSARTAN POTASSIUM 25 MG TAB PO SCH (07:53)
[2018-05-21] MEDS ORDERED: LIDOCAINE 1% 300 MG/30 ML SDV ONE (09:02)
[2018-05-21] MEDS ORDERED: BUPIVACAINE 0.5% 30 ML SDV ONE (09:02)
--- NOTE | 2018-05-21 09:07 | PDANEPAE ---
ANE Past Medical History - Cardiovascular History Hx Hypertension: Yes Hx Arrhythmias: No Hx Chest Pain: No Hx Coronary Artery / Peripheral Vascular Disease: No Hx CHF / Valvular Disease: No Hx Palpitations: No - Pulmonary History Hx COPD: No Hx Asthma/Reactive Airway Disease: No Hx Recent Upper Respiratory Infection: No Hx Oxygen in Use at Home: No Hx Sleep Apnea: No Sleep Apnea Screening Result - Last Documented: Negative - Neurologic History Hx Cerebrovascular Accident: No Hx Seizures: No Hx Dementia: No - Endocrine History Hx Diabetes: Yes Endocrine History Comment: NIDDM MANAGED BY DIET - Renal History Hx Renal Disorders: No - Liver History Hx Hepatic Disorders: Yes Hepatic History Comment: RECENTLY DX WITH PANCREATIC CYST - Neurological & Psychiatric Hx Hx Neurological and Psychiatric Disorders: No - Cancer History Hx Cancer: No - Congenital Disorder History Hx Congenital Disorders: No - GI History Hx Gastrointestinal Disorders: Yes Gastrointestinal History Comment: RECENT RUQ DISCOMFORT - Other Health History Other Health History: SUPERFICIAL LT LEG DVT 2009 - Chronic Pain History Chronic Pain: No - Surgical History Prior Surgeries: RT FOOT REMVL CYST 10/2015. HYSTERECTOMY. SINUS. RT BREAST BX. PILONIDAL CYSTECTOMY ANE Review of Systems Review of Systems: ANE Patient History - Allergies Allergies/Adverse Reactions: cephalexin monohydrate [From Keflex] Allergy (Verified 05/19/18 14:26) Rash Penicillins Allergy (Verified 05/19/18 14:26) Rash Yeast Allergy (Verified 05/19/18 07:43) - Home Medications Home Medications: Hydrochlorothiazide [HCTZ (*)] 25 mg PO DAILY 05/26/15 [Last Taken Unknown] Acetaminophen [Tylenol ES 500 mg (*)] 1,000 mg PO Q8H PRN 05/19/18 [Last Taken Unknown] Ascorbic Acid [Vitamin C] 1,000 mg PO DAILY 05/19/18 [Last Taken Unknown] Atorvastatin Calcium [Lipitor 10 mg (*)] 10 mg PO DAILY 05/19/18 [Last Taken Unknown] Cholecalciferol Vit D3 [Vitamin D3 (*)] 1,000 units PO DAILY 05/19/18 [Last Taken Unknown] Cyanocobalamin [Vitamin B12 (*)] 1,000 mcg PO DAILY 05/19/18 [Last Taken Unknown ] Gabapentin [Neurontin 300 MG (*)] 600 mg PO HS 05/19/18 [Last Taken Unknown] Loratadine [Claritin 10 mg] 10 mg PO DAILY PRN 05/19/18 [Last Taken Unknown] Losartan Potassium [Cozaar 25 mg (*)] 25 mg PO DAILY 05/19/18 [Last Taken Unknown] Montelukast Sodium [Singulair 10 mg (*)] 10 mg PO DAILY PRN 05/19/18 [Last Taken Unknown] Oxybutynin Chloride [Ditropan Xl] 10 mg PO DAILY 05/19/18 [Last Taken Unknown] Potassium Cl [Klor-Con] 10 meq PO BID 05/19/18 [Last Taken Unknown] - NPO status NPO Since - Liquids (Date): 05/20/18 NPO Since - Liquids (Time): 23:59 NPO Since - Solids (Date): 05/20/18 NPO Since - Solids (Time): 23:59 - Smoking Hx Smoking Status: Never smoked - Alcohol Use Alcohol Use: None ANE Labs/Vital Signs - Labs Result Diagrams: 05/21/18 04:44 05/21/18 04:44 - Vital Signs Blood Pressure: 94/70 Heart Rate: 106 Respiratory Rate: 16 O2 Sat (%): 95 Height: 170.18 cm Weight: 68 kg ANE Physical Exam - Airway Mallampati Score: Class 1 - ASA Status ASA Status: III, E ANE Anesthesia Plan Anesthesia Plan: general endotracheal anesthesia
--- NOTE | 2018-05-21 09:10 | SOAPPROG ---
SOAP Progress Note Assessment/Plan: Assessment/Plan: 63-year-old patient with pancreatic cancer presented yesterday with what appeared to be biliary colic. On Meropenam WBC down to 11 Cr 1.6 up from 1 yesterday. HIDA non filling gallbladder but normal flow into duodenum Alert oriented Regular rate and rhythm Clear to auscultation Abdomen soft minimal tenderness right upper quadrant no Kumar's by my exam Appreciate IM and GI input and management Cholecystectomy today Risk, benefits and alternatives outlined and discussed. All questions answered. Written consent obtained No need fo addition abx 05/20/18 09:10 05/21/18 09:08 Objective: Vital Signs Temp Pulse Resp BP Pulse Ox 37.7 C 106 H 16 94/70 L 95 05/21/18 09:03 05/21/18 09:07 05/21/18 09:07 05/21/18 09:07 05/21/18 09:07 Laboratory Results 05/21/18 04:44 05/21/18 04:44 05/20/18 05/21/18 05/22/18 05:59 05:59 05:59 Intake Total 1100 Balance 1100 ICD10 Worksheet Patient Problems: Problems Problem Status Onset History of pancreatic cancer Acute
[2018-05-21] MEDS ORDERED: MIDAZOLAM 2 MG/2 ML VIAL ONE (09:12)
[2018-05-21] MEDS ORDERED: fentaNYL 100 MCG/2 ML INJ ONE (09:12)
[2018-05-21] MEDS ORDERED: PROPOFOL 200 MG/20 ML VIAL ONE (09:13)
[2018-05-21] MEDS ORDERED: ROCURONIUM 50 MG/5 ML VIAL ONE (09:20)
[2018-05-21] MEDS ORDERED: ONDANSETRON 4 MG/2 ML VIAL ONE (09:20)
[2018-05-21] MEDS ORDERED: METOCLOPRAMIDE 10 MG/2 ML VIAL ONE (09:20)
[2018-05-21] MEDS ORDERED: PHENYLEPHRINE HCL 100 MCG/ML SYR ONE (10:44)
[2018-05-21] MEDS ORDERED: ePHEDrine SULFATE 25 MG/5 ML SYR ONE (10:45)
[2018-05-21] MEDS ORDERED: SUGAMMADEX SODIUM 200 MG/2 ML VIAL IVP ONE (11:25)
[2018-05-21] MEDS ORDERED: NALOXONE HCL 0.4 MG/ML INJ IVP PRN (11:49)
[2018-05-21] MEDS ORDERED: fentaNYL 100 MCG/2 ML INJ IVP PRN (11:49)
[2018-05-21] MEDS ORDERED: LR 500 ML IV PRN (11:49)
[2018-05-21] MEDS ORDERED: ONDANSETRON 4 MG/2 ML VIAL IVP PRN (11:49)
[2018-05-21] MEDS ORDERED: PHENYLEPHRINE HCL 100 MCG/ML SYR IVP PRN (11:49)
--- NOTE | 2018-05-21 11:50 | POSTANESTH ---
Post Anesthetic Evaluation Cardiovascular Status: Similar to Pre-Op Cond Respiratory Status: Normal, Stable Level of Consciousness/Mental Status: Can Participate in Eval Pain Control: Adequate, Prn Tx Ordered Nausea/Vomiting Control: Adequate, Prn Tx Ordered Complications Possibly Related to Anesthesia: None Noted
--- NOTE | 2018-05-21 12:02 | POSTOPPROG ---
Post Op Note Date of Operation: 05/21/18 Surgeon: Arnie Norman Professor Of Journalism: none Anesthesiologist: Liyah Anesthesia: GET(General Endotracheal) Pre-op Diagnosis: Cholecystitis Post-op Diagnosis: Gangrenous Cholecystitis Procedure: Lap to open cholecystectomy Findings: gangrenous gallbladder Inf/Abcess present in the surg proc area at time of surgery?: Yes Depth: Organ Space EBL: 50-100 Complications: none Drains: Joe Dickey Specimen(s): Gallbladder Peritoneal fluid for cytology Peritoneal fluid for cx
--- NOTE | 2018-05-21 12:21 | SUROPNOTE ---
[facility] Operative Report - Surgery Date of surgery: 05/21/2018 Indications for procedure: This is a 63-year-old woman with known pancreatic cancer who presented to the hospital with right upper quadrant abdominal pain. CT scan showed ascites and possible cholecystitis this was corroborated with ultrasound findings. Due to the patient's other health issues including having previously had biliary stent placed, GI consult was also obtained. HIDA scan was later performed which showed nonfilling of the gallbladder but extravasation of the radiotracer into the small bowel. Based on the findings and lack of elevation of alkaline phosphatase it was decided to take her to the operating room for cholecystectomy. Risks benefits and alternatives surgery were outlined clearly with the patient and her sister. All questions were addressed. Preop diagnosis: Cholecystitis Postop diagnosis: Gangrenous cholecystitis Procedure: Laparoscopic to open cholecystectomy Surgeon: Emerson Anesthesiologist: Dr. Pelletier general endotracheal anesthesia Findings: Gangrenous enlarged gallbladder, ascites with purulent fluid. Specimens: Gallbladder to permanent pathology Peritoneal fluid for culture and cytology Drains: 15 [place] closed channel drain right flank EBL: 100 cc Fluid given 1.5 L crystalloid Procedure details: The patient was brought to the operating room after being placed supine on the operating table general endotracheal anesthesia was established in standard fashion. The abdomen was prepped chlorhexidine time-out procedure was then performed according to institutional standards. Local anesthetic was infused in skin and subcutaneous tissues of the trocar sites supraumbilical, subxiphoid and right subcostal areas. Open supraumbilical trocar placement was performed in the abdomen was insufflated to 15 torr with carbon dioxide working trocars were placed in the subxiphoid and right subcostal areas in the abdomen was inspected there was turbid fluid throughout the abdomen extending from the right pericolic gutter and subdiaphragmatic area down to the pelvis approximately 2 L was aspirated and a portion was sent for cytology and another for culture. The gallbladder was fairly enlarged in case between omentum and large bowel and the stomach. The stomach was decompressed with an orogastric tube to facilitate the dissection. Despite judicious use of electrocautery and careful dissection there was a large amount of bleeding noted around the gallbladder itself. It was too difficult to dissect this cleanly away from the colon duodenum or omentum in it was decided at this point to convert to an open operation the gallbladder was left in-situ and an incision was made between the 2 lateral subcostal trocar sites. Omni retractor was used for self-retaining and the incision was carried down using electrocautery through external oblique internal oblique and transversalis muscles the peritoneum was entered hemostasis was assured at that point appropriate lap pads were placed along the abdominal wall and behind the liver to facilitate exposure of the gallbladder. A top-down approach was used to take the gangrenous gallbladder off the cystic plate gallbladder was aspirated and the cystic duct and cystic artery were identified. the cystic duct and cystic artery were then ligated using 2 0 Vicryl and 0 Vicryl for suture leg and high placement on each of the structures. The specimen was passed off hemostasis was then assured. Working trocars removed no further pathology was noted a drain was placed in the cavity created by this enlarged gallbladder and brought out through the right flank. The drain was secured using 3 0 nylon. Needle instrument sponge counts were verified to be correct. The incision was closed in layers using 1. PDS for the internal oblique and transversalis and 1. PDS was used to reapproximate the external oblique before a layered closure of the incisions. The supraumbilical trocar site was closed using 0 Vicryl at the level of the fascia and Monocryl was used to reapproximate all incisions. Local anesthetic was reapplied. The patient had Dermabond placed on the incisions she was awakened extubated and taken to recovery room in stable condition. She had been hypotensive through the initial part of the case and then later continued to be tachycardic. It was decided she would likely have benefits in a more structured/higher level of care than the floor after surgery and she was scheduled to go to step-down unit.
[2018-05-21] MEDS: NS W/ 20 KCl/L 1,000 ML IV SCH ×2 (13:52→23:33)
[2018-05-21] MEDS ORDERED: NS BOLUS 500 ML (Wide open) IV ONE ×2 (15:30→17:00)
--- NOTE | 2018-05-21 16:26 | HOSPPROG ---
Hospitalist Progress Note Assessment/Plan: The patient is a 63-year-old female with PMH of unresectable pancreatic adenocarcinoma who was admitted for acute cholecystitis, underwent cholecystectomy today. ASSESSMENT/PLAN: Hypotension, 2/2 dehydration -DDx etiology - acute blood loss, pancreatitis, infection Acute cholecystitis, s/p open cholecystectomy POD #0 Possible postop ileus Acute abd pain, 2/2 above - controlled Metastatic unresectable pancreatic adenocarcinoma s/p CBD stent (covered) Ascites, new -pt clinically dehydrated -- despite having received 2.5L in OR and has been on maintenance IVF most of the day. Gave 1L bolus which pt responded to well, will follow with higher rate IVF. If pt continues to be hypotensive despite IVF hydration, will need to be started on a pressor and upgraded to ICU. -Check stat lactic acid, lipase, CBC, BMP. Tx findings accordingly. -Discussed w/ Gen Surg Dr. Norman. Moved to SDU for closer monitoring. -IV Abx - meropenem. -IV fluids, Clear liquid diet. -I have d/w Oncologist Dr. Sarabia who will notify Dr. Dumont, her primary oncologist, that she is in the hospital. She has been taking a break from chemo and her cancer had seemed stable. -Consulted Palliative. -Check AM labs. VTE prophylaxis: Lovenox. Code Status: Full Status: inpt for > 2 midnight stay. Disposition: [facility] ____ SUBJECTIVE: OBJECTIVE: Physical Exam: General: The patient is a female who is alert and in no acute distress. HEENT: normocephalic, extraocular movements intact, conjunctivae clear. Mucous membranes dry. Neck: trachea midline, no visible masses. CV: RRR no MRG. Resp: unlabored. CTAB no RRW. Abd: soft and nondistended. BS hypoactive. Surgical wounds noted, glued. IDALIA drain in place R flank draining SS fluid. Musculoskeletal: Normal muscle tone/bulk. Neuro: cranial nerves II - XII grossly intact. Intact gross motor and sensory function. Psych: appropriate mood and appropriate affect. Skin: +pallor. Heme/lymph: no peripheral edema. Labs/Imaging/Other Tests: Personally reviewed/interpreted. US Abd: 1. Gallbladder distention with wall thickening and internal sludge/debris, new since February. Findings are suspicious for early acute cholecystitis. 2. Large pancreatic mass, incompletely seen by ultrasound. The biliary stent contains internal debris and possible tumor infiltration. There is mild central intrahepatic ductal dilatation on the right. Pneumobilia is seen on the left. 3. Cavernous transformation of the portal vein. 4. Small volume ascites. CTA chest/abd/pelvis: Chest: 1. No evidence of pulmonary embolism or pneumonia. Abdomen: 1. 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 Intrahepatic portal veins are patent. 2. Interval placement of metal biliary stent with gallbladder findings concerning for acute cholecystitis. 3. Thick-walled, edematous cecum may be secondary to adjacent gallbladder inflammation, however concomitant typhlitis is an additional consideration in a neutropenic patient. Pelvis: 1. Moderate ascites without adenopathy or mass. CXR- personally interpreted - normal. Catheter noted in SVC. Objective: Vital Signs Temp Pulse Resp BP Pulse Ox 36.5 C 100 14 93/50 L 99 05/21/18 13:41 05/21/18 15:30 05/21/18 15:30 05/21/18 15:30 05/21/18 15:30 Microbiology 05/21/18 09:50 Gram Stain - Final Peritoneal Fluid - Aspirate 05/21/18 09:49 Gram Stain - Final Pancreatic Fluid - Aspirate Laboratory Results 05/21/18 04:44 05/21/18 04:44 05/20/18 05/21/18 05/22/18 05:59 05:59 05:59 Intake Total 1100 2720 Output Total 200 Balance 1100 2520 - Time Spent With Patient Time Spent with Patient: greater than 35 minutes Time Spent with Patient: Greater than 35 minutes spent on this patients care, greater than 50% of time spent counseling, educating, and coordinating care regarding the above mentioned plan. ICD10 Worksheet Patient Problems: Problems Problem Status Onset History of pancreatic cancer Acute
[2018-05-21 17:44] LABS: PLATELET COUNT 182 10^3/uL (150-400)
[2018-05-21] MEDS ORDERED: ALTEPLASE 2 MG VIAL IVP PRN (18:19)
[2018-05-21] MEDS ORDERED: NOREPINEPHRINE BITARTRATE 16 MG in NS 250 ML IV ONE (18:20)
[2018-05-21] MEDS ORDERED: NOREPINEPHRINE BITARTRATE 16 MG in NS 250 ML IV SCH (19:30)
[2018-05-21] MEDS ORDERED: NS BOLUS 1000 ML (Wide open) IV ONE (20:00)
[2018-05-21] MEDS: GABAPENTIN 300 MG CAP PO SCH (21:54)
[2018-05-21] MEDS ORDERED: NS BOLUS 1000 ML IV ONE (23:00)
[2018-05-21] MEDS: oxyCODONE IR 5 MG TAB PO PRN (23:53)
[2018-05-22] MEDS: MEROPENEM 1 GM in NS 100 ML IV SCH ×2 (02:58→15:17)
[2018-05-22 04:37] LABS: PLATELET COUNT 181 10^3/uL (150-400)
[2018-05-22] MEDS: NS W/ 20 KCl/L 1,000 ML IV SCH (06:36)
[2018-05-22] MEDS: ENOXAPARIN 40 MG/0.4 ML SYR SC SCH (10:13)
[2018-05-22] MEDS: ATORVASTATIN CALCIUM 10 MG TAB PO SCH (10:13)
--- NOTE | 2018-05-22 12:26 | SOAPPROG ---
SOAP Progress Note Assessment/Plan: Assessment/Plan: 63-year-old patient with pancreatic cancer presented with what appeared to be biliary colic. POD# 1 s/p lap to open cholecystectomy for gangrenous cholecystitis. Alert. OOB in halls. Tolerating clears. Adequate u/o. Required fluid bolus o/n for hypotension. Now appears fluid resuscitated with Cr down to 1.1. Palliative care consult ongoing. Awaiting path On Meropenam WBC down to 8 Alert oriented Regular rate and rhythm Clear to auscultation Abdomen soft, appropriate incisional tenderness. Incision dry no signs of infection. IDALIA serosang Appreciate IM and GI input and management S/P urgent Cholecystectomy Adv diet Transfer to med/surg OOB HL IV when tolerating PO Cont abx for now. Await cytology 05/20/18 09:10 05/21/18 09:08 05/22/18 12:22 Objective: Vital Signs Temp Pulse Resp BP Pulse Ox 37.2 C 104 H 13 107/76 100 05/22/18 04:00 05/22/18 12:00 05/22/18 12:00 05/22/18 12:00 05/22/18 12:00 Microbiology 05/21/18 09:49 Gram Stain - Final Pancreatic Fluid - Aspirate 05/21/18 09:50 Gram Stain - Final Peritoneal Fluid - Aspirate Laboratory Results 05/22/18 04:16 05/22/18 04:16 05/21/18 05/22/18 05/23/18 05:59 05:59 05:59 Intake Total 1100 6404 Output Total 825 Balance 1100 5567 ICD10 Worksheet Patient Problems: Problems Problem Status Onset History of pancreatic cancer Acute
[2018-05-22] MEDS: oxyCODONE IR 5 MG TAB PO PRN ×2 (12:40→20:39)
[2018-05-22] MEDS: OXYBUTYNIN 5 MG EXT REL TAB PO SCH (12:40)
--- NOTE | 2018-05-22 17:34 | HOSPPROG ---
Hospitalist Progress Note Assessment/Plan: The patient is a 63-year-old female with PMH of unresectable pancreatic adenocarcinoma who was admitted for acute cholecystitis, underwent cholecystectomy today. ASSESSMENT/PLAN: Hypotension, 2/2 dehydration -DDx etiology - acute blood loss, pancreatitis, infection Acute cholecystitis, s/p open cholecystectomy POD #1 Acute abd pain, 2/2 above - controlled Metastatic unresectable pancreatic adenocarcinoma, s/p CBD stent (covered, metal ) Ascites, new -pt a bit vol OL'd today. Turned down IVF. -Discussed w/ Gen Surg Dr. Norman. DG to med surg. -IV Abx - meropenem. -ADAT. -Consulted Palliative. -Check AM labs. VTE prophylaxis: Lovenox. Code Status: Full Status: inpt for > 2 midnight stay. Disposition: medsurg with DC to home in 1-2 days after pt returns to reg diet and has BMs. ____ SUBJECTIVE: OBJECTIVE: Physical Exam: General: The patient is a female who is alert and in no acute distress. HEENT: normocephalic, extraocular movements intact, conjunctivae clear. Mucous membranes dry. Neck: trachea midline, no visible masses. CV: RRR no MRG. Resp: unlabored. CTAB no RRW. Abd: soft and nondistended. BS present. Nontender. Musculoskeletal: Normal muscle tone/bulk. Neuro: cranial nerves II - XII grossly intact. Intact gross motor and sensory function. Psych: appropriate mood and appropriate affect. Skin: +pallor. Heme/lymph: +1-2 pitting peripheral edema b/l ankles. Labs/Imaging/Other Tests: Personally reviewed/interpreted. US Abd: 1. Gallbladder distention with wall thickening and internal sludge/debris, new since February. Findings are suspicious for early acute cholecystitis. 2. Large pancreatic mass, incompletely seen by ultrasound. The biliary stent contains internal debris and possible tumor infiltration. There is mild central intrahepatic ductal dilatation on the right. Pneumobilia is seen on the left. 3. Cavernous transformation of the portal vein. 4. Small volume ascites. CTA chest/abd/pelvis: Chest: 1. No evidence of pulmonary embolism or pneumonia. Abdomen: 1. 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 Intrahepatic portal veins are patent. 2. Interval placement of metal biliary stent with gallbladder findings concerning for acute cholecystitis. 3. Thick-walled, edematous cecum may be secondary to adjacent gallbladder inflammation, however concomitant typhlitis is an additional consideration in a neutropenic patient. Pelvis: 1. Moderate ascites without adenopathy or mass. CXR- personally interpreted - normal. Catheter noted in SVC. Objective: Vital Signs Temp Pulse Resp BP Pulse Ox 37.2 C 96 16 117/77 95 05/22/18 04:00 05/22/18 15:11 05/22/18 15:11 05/22/18 15:11 05/22/18 15:11 Microbiology 05/21/18 09:49 Gram Stain - Final Pancreatic Fluid - Aspirate 05/21/18 09:50 Gram Stain - Final Peritoneal Fluid - Aspirate Laboratory Results 05/22/18 04:16 05/22/18 04:16 05/21/18 05/22/18 05/23/18 05:59 05:59 05:59 Intake Total 1100 6404 1791 Output Total 825 200 Balance 1100 5565 1591 - Time Spent With Patient Time Spent with Patient: greater than 35 minutes Time Spent with Patient: Greater than 35 minutes spent on this patients care, greater than 50% of time spent counseling, educating, and coordinating care regarding the above mentioned plan. ICD10 Worksheet Patient Problems: Problems Problem Status Onset History of pancreatic cancer Acute
--- NOTE | 2018-05-22 20:10 | GCON ---
The patient is well known to me, who was diagnosed in July of 2016 with locally-advanced and unresec table pancreatic carcinoma. 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 She did receive stereotactic radiosurgery in December of 2016. She has been followed. Serial scans have shown a fairly stable mass in the head of her pancreas without obvious metastatic disease. However, recently she has had some issues with abdominal discomfort and anorexia, and was admitted with abdominal pain to [facility] a few days ago. She wa s found to have an abnormal gallbladder on imaging and on HIDA scan, and was taken to surgery by Dr. Norman a few days ago with resection of a gangrenous gallbladder. She is recovering well from this procedure. She also, a couple months ago, developed biliary obstruction and had a biliary stent plac ed. Her last tumor marker, which was a CA-19-9, was slightly over 2000. She has also developed asci adalid on a recent scan, and cytology is pending. Comparison today of her CT scan from May 20 to a study from March showed no increase in size of the pancreatic head mass, although it has increased in size over the last year and a half. Curren tly she is resting comfortably. PAST MEDICAL HISTORY: Significant for diabetes, hypertension, hyperlipidemia, and asthma. 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 PHYSICAL EXAM: GENERAL: Today she is somewhat pale, but quite alert. VITAL SIGNS: Blood pressure 117/77, pulse 96, sat 95% on room air. She is not icteric. LUNGS: Clear. CARDIAC: Unremarkable. ABDOMEN: A few bowel sounds. NEUROLOGIC: Nonfocal. LABORATORY: White count 8.25, hemoglobin 8.8, hematocrit 27, platelets 181,000. Sodium 136, potassi um 4.1, chloride 114, creatinine 1.1, glucose 131, calcium 7.4, albumin is 2. IMPRESSION: The patient is status post cholecystectomy with gangrenous cholecystitis, which I think could be accounting for some of her symptoms. It is unclear how much her symptoms are related to pro gressive disease, although I have a fairly strong suspicion (given the development of ascites and the increased tumor marker) that we are seeing this, although I note that there was no obvious peritonea l carcinomatosis at the time of Dr. Norman's inspection of the abdomen. PLAN: Wait for recovery. We will repeat a tumor marker down the road. We will check cytology on he r ascitic fluid. Her pre-existing neuropathy is a bit problematic. In terms of additional chemother apy we could consider liposomal irinotecan with 5-FU. Our service will follow with you. /[id number]/MODL
[2018-05-22] MEDS: GABAPENTIN 300 MG CAP PO SCH (20:40)
[2018-05-23] MEDS: oxyCODONE IR 5 MG TAB PO PRN ×2 (04:20→21:00)
[2018-05-23] MEDS: MEROPENEM 1 GM in NS 100 ML IV SCH ×4 (04:20→23:53)
[2018-05-23 04:57] LABS: PLATELET COUNT 208 10^3/uL (150-400)
[2018-05-23 05:22] LABS: PLATELET COUNT 192 10^3/uL (150-400)
[2018-05-23] MEDS: ENOXAPARIN 40 MG/0.4 ML SYR SC SCH (09:11)
[2018-05-23] MEDS: OXYBUTYNIN 5 MG EXT REL TAB PO SCH (09:12)
[2018-05-23] MEDS: ATORVASTATIN CALCIUM 10 MG TAB PO SCH (09:12)
--- NOTE | 2018-05-23 11:50 | SOAPPROG ---
SOAP Progress Note Assessment/Plan: Assessment: 1. locally advanced pancreatic ca 2. cholecystitis, s/p choly, recovering well Plan:Awaiting BM, plan home then and follow up with me 1-2 weeks 05/23/18 11:48 Subjective: Eating, pain ok Objective: Vital Signs Temp Pulse Resp BP Pulse Ox 98.1 F 90 16 98/91 H 94 05/23/18 08:00 05/23/18 08:00 05/23/18 08:00 05/23/18 08:00 05/23/18 08:00 Microbiology 05/21/18 09:49 Gram Stain - Final Pancreatic Fluid - Aspirate 05/21/18 09:50 Gram Stain - Final Peritoneal Fluid - Aspirate Laboratory Results 05/23/18 05:07 05/23/18 05:15 05/22/18 05/23/18 05/24/18 05:59 05:59 05:59 Intake Total 6404 2791 Output Total 825 2190 150 Balance 5579 601 -150 ICD10 Worksheet Patient Problems: Problems Problem Status Onset History of pancreatic cancer Acute
[2018-05-23] MEDS ORDERED: LACTULOSE 20 GM/30 ML UDCUP PO PRN (12:48)
[2018-05-23] MEDS ORDERED: MAGNESIUM HYDROXIDE 30 ML UDCUP PO PRN (12:48)
[2018-05-23] MEDS ORDERED: BISACODYL 10 MG SUPP PR PRN (12:48)
[2018-05-23] MEDS ORDERED: POLYETHYLENE GLYCOL 3350 17 GM PKT PO PRN (12:48)
--- NOTE | 2018-05-23 13:11 | ASMTCMCOM ---
CM Note CM Note Notes: Patient plan of care reviewed in rounds. 63 year old female admitted with necrotic gallbladder and stage IV pancreatitis. Jose Armando palliative met with patient today. She currently lives independently. CM to follow for needs. Plan: Home with palliative support when medically cleared for discharge. Date Signed: 05/23/2018 01:10 PM Electronically Signed By:Mare Soliman RN
[2018-05-23] MEDS: SENNOSIDES/DOCUSATE SODIUM TAB PO SCH ×2 (13:51→21:00)
--- NOTE | 2018-05-23 19:54 | HOSPPROG ---
Hospitalist Progress Note Assessment/Plan: The patient is a 63-year-old female with PMH of unresectable pancreatic adenocarcinoma who was admitted for acute cholecystitis, underwent cholecystectomy today. ASSESSMENT/PLAN: Hypotension, resolved Acute gangrenous cholecystitis, s/p open cholecystectomy POD #2 Acute abd pain, resolved Metastatic unresectable pancreatic adenocarcinoma, s/p CBD stent (covered, metal ) Ascites, likely inflammatory 2/2 above -Drain w/ high output still. If Surgeon is ok with it, pt could go home with drain and FU in office to discuss when to remove drain. -Discussed w/ Onc Dr. Dumont and Pall Med Dr. Laguna. Pt doing well from their perspectives. -IV Abx - meropenem. May switch to Cipro/Flagyl for DC. -Tolerating diet. -Check AM labs. VTE prophylaxis: Lovenox. Code Status: Full Status: inpt for > 2 midnight stay. Disposition: medsurg. DC to home in 1-2 days if pt has BM and if ok w/ Gen Surg. ____ SUBJECTIVE: OBJECTIVE: Physical Exam: General: The patient is a female who is alert and in no acute distress. HEENT: normocephalic, extraocular movements intact, conjunctivae clear. Mucous membranes dry. Neck: trachea midline, no visible masses. CV: RRR no MRG. Resp: unlabored. CTAB no RRW. Abd: soft and nondistended. BS present. Nontender. Musculoskeletal: Normal muscle tone/bulk. Neuro: cranial nerves II - XII grossly intact. Intact gross motor and sensory function. Psych: appropriate mood and appropriate affect. Skin: +pallor. Heme/lymph: +1-2 pitting peripheral edema b/l ankles. Labs/Imaging/Other Tests: Personally reviewed/interpreted. US Abd: 1. Gallbladder distention with wall thickening and internal sludge/debris, new since February. Findings are suspicious for early acute cholecystitis. 2. Large pancreatic mass, incompletely seen by ultrasound. The biliary stent contains internal debris and possible tumor infiltration. There is mild central intrahepatic ductal dilatation on the right. Pneumobilia is seen on the left. 3. Cavernous transformation of the portal vein. 4. Small volume ascites. CTA chest/abd/pelvis: Chest: 1. No evidence of pulmonary embolism or pneumonia. Abdomen: 1. 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 Intrahepatic portal veins are patent. 2. Interval placement of metal biliary stent with gallbladder findings concerning for acute cholecystitis. 3. Thick-walled, edematous cecum may be secondary to adjacent gallbladder inflammation, however concomitant typhlitis is an additional consideration in a neutropenic patient. Pelvis: 1. Moderate ascites without adenopathy or mass. CXR- personally interpreted - normal. Catheter noted in SVC. Objective: Vital Signs Temp Pulse Resp BP Pulse Ox 37.1 C 93 16 103/66 93 05/23/18 16:00 05/23/18 16:00 05/23/18 16:00 05/23/18 16:00 05/23/18 16:00 Microbiology 05/21/18 09:50 Gram Stain - Final Peritoneal Fluid - Aspirate 05/21/18 09:49 Gram Stain - Final Pancreatic Fluid - Aspirate Laboratory Results 05/23/18 05:07 05/23/18 05:15 05/22/18 05/23/18 05/24/18 05:59 05:59 05:59 Intake Total 6404 2791 1400 Output Total 825 2190 900 Balance 5579 601 500 - Time Spent With Patient Time Spent with Patient: greater than 35 minutes Time Spent with Patient: Greater than 35 minutes spent on this patients care, greater than 50% of time spent counseling, educating, and coordinating care regarding the above mentioned plan. ICD10 Worksheet Patient Problems: Problems Problem Status Onset History of pancreatic cancer Acute
[2018-05-23] MEDS: GABAPENTIN 300 MG CAP PO SCH (21:01)
[2018-05-24] MEDS: oxyCODONE IR 5 MG TAB PO PRN ×2 (05:42→18:05)
[2018-05-24] MEDS: MEROPENEM 1 GM in NS 100 ML IV SCH ×2 (05:42→13:04)
[2018-05-24 06:09] LABS: PLATELET COUNT 221 10^3/uL (150-400)
--- NOTE | 2018-05-24 08:46 | SOAPPROG ---
SOAP Progress Note Assessment/Plan: Assessment/Plan: 63-year-old patient with pancreatic cancer presented with what appeared to be biliary colic. POD# 3 s/p lap to open cholecystectomy for gangrenous cholecystitis. Alert. OOB in halls. Tolerating diet. Autodiuresis. Path no pancreatic cells in bloc. On Meropenam WBC normalized afebrile Alert oriented Regular rate and rhythm Clear to auscultation Abdomen soft, appropriate incisional tenderness. Incision dry no signs of infection. IDALIA serosang Appreciate IM and GI input and management S/P urgent Cholecystectomy Resend IDALIA output for cytology Okay to d/c 05/25 follow up visit 05/31 Fine to stop abx if Int Medicine agrees 05/20/18 09:10 05/21/18 09:08 05/22/18 12:22 05/24/18 08:43 Objective: Vital Signs Temp Pulse Resp BP Pulse Ox 36.9 C 88 18 118/75 95 05/24/18 05:52 05/24/18 05:52 05/24/18 05:52 05/24/18 05:52 05/24/18 05:52 Microbiology 05/21/18 09:50 Gram Stain - Final Peritoneal Fluid - Aspirate 05/21/18 09:49 Gram Stain - Final Pancreatic Fluid - Aspirate Laboratory Results 05/24/18 06:00 05/23/18 05:15 05/23/18 05/24/18 05/25/18 05:59 05:59 05:59 Intake Total 2791 1999 Output Total 2190 2250 Balance 601 -250 ICD10 Worksheet Patient Problems: Problems Problem Status Onset History of pancreatic cancer Acute
[2018-05-24] MEDS: ENOXAPARIN 40 MG/0.4 ML SYR SC SCH (09:16)
[2018-05-24] MEDS: SENNOSIDES/DOCUSATE SODIUM TAB PO SCH ×2 (09:16→20:23)
[2018-05-24] MEDS: ATORVASTATIN CALCIUM 10 MG TAB PO SCH (09:16)
[2018-05-24] MEDS: OXYBUTYNIN 5 MG EXT REL TAB PO SCH (09:16)
--- NOTE | 2018-05-24 14:26 | HOSPPROG ---
Hospitalist Progress Note Assessment/Plan: The patient is a 63-year-old female with PMH of unresectable pancreatic adenocarcinoma who was admitted for acute cholecystitis, underwent cholecystectomy ASSESSMENT/PLAN: Hypotension, resolved Acute gangrenous cholecystitis, s/p open cholecystectomy POD #3 Acute abd pain, resolved Metastatic unresectable pancreatic adenocarcinoma, s/p CBD stent (covered, metal ) Ascites, likely inflammatory 2/2 above -post op care -stop abx. -likely d/c tomorrow VTE prophylaxis: Lovenox. Code Status: Full Labs/Imaging/Other Tests: Personally reviewed/interpreted. US Abd: 1. Gallbladder distention with wall thickening and internal sludge/debris, new since February. Findings are suspicious for early acute cholecystitis. 2. Large pancreatic mass, incompletely seen by ultrasound. The biliary stent contains internal debris and possible tumor infiltration. There is mild central intrahepatic ductal dilatation on the right. Pneumobilia is seen on the left. 3. Cavernous transformation of the portal vein. 4. Small volume ascites. CTA chest/abd/pelvis: Chest: 1. No evidence of pulmonary embolism or pneumonia. Abdomen: 1. 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 Intrahepatic portal veins are patent. 2. Interval placement of metal biliary stent with gallbladder findings concerning for acute cholecystitis. 3. Thick-walled, edematous cecum may be secondary to adjacent gallbladder inflammation, however concomitant typhlitis is an additional consideration in a neutropenic patient. Pelvis: 1. Moderate ascites without adenopathy or mass. CXR- personally interpreted - normal. Catheter noted in SVC. Subjective: minimal abd pain. afebrile. no resp sx's. Objective: Vital Signs Temp Pulse Resp BP Pulse Ox 36.9 C 88 16 110/76 96 05/24/18 08:46 05/24/18 08:46 05/24/18 08:46 05/24/18 08:46 05/24/18 08:46 Microbiology 05/21/18 09:50 Gram Stain - Final Peritoneal Fluid - Aspirate 05/21/18 09:49 Gram Stain - Final Pancreatic Fluid - Aspirate Laboratory Results 05/24/18 06:00 05/23/18 05:15 05/23/18 05/24/18 05/25/18 05:59 05:59 05:59 Intake Total 2791 1999 Output Total 2190 2250 200 Balance 601 -250 -200 - Physical Exam Constitutional: no apparent distress Eyes: PERRL Ears, Nose, Mouth, Throat: moist mucous membranes, hearing normal Cardiovascular: regular rate and rhythym, edema Respiratory: no respiratory distress, no rales or rhonchi, clear to auscultation Gastrointestinal: normoactive bowel sounds Skin: warm Neurologic: AAOx3 Psychiatric: interacting appropriately, not anxious, not encephalopathic Lymph, Heme, Immunologic: No petechiae ICD10 Worksheet Patient Problems: Problems Problem Status Onset History of pancreatic cancer Acute
[2018-05-24] MEDS: GABAPENTIN 300 MG CAP PO SCH (20:23)
[2018-05-25 05:58] LABS: PLATELET COUNT 172 10^3/uL (150-400)
[2018-05-25 08:08] VITALS: BP 108/78
[2018-05-25] MEDS: SENNOSIDES/DOCUSATE SODIUM TAB PO SCH (08:29)
[2018-05-25] MEDS: ATORVASTATIN CALCIUM 10 MG TAB PO SCH (08:30)
[2018-05-25] MEDS: OXYBUTYNIN 5 MG EXT REL TAB PO SCH (08:30)
[2018-05-25] MEDS: ENOXAPARIN 40 MG/0.4 ML SYR SC SCH (08:31)
--- NOTE | 2018-05-25 12:08 | PDDCSUM ---
Discharge Summary Discharge Summary: The patient is a 63-year-old female with PMH of unresectable pancreatic adenocarcinoma who was admitted for acute cholecystitis, underwent cholecystectomy. She did well postoperatively. She has been cleared for d/c per surgery. She has f/u on 05/31. BP meds were stopped as she did not require them while here. She will f/u with her PCP in 1-2 weeks for discussion DDX: Hypotension, resolved Acute gangrenous cholecystitis, s/p open cholecystectomy POD #4 Acute abd pain, resolved Metastatic unresectable pancreatic adenocarcinoma, s/p CBD stent (covered, metal ) Ascites, likely inflammatory 2/2 above IMAGING: US Abd: 1. Gallbladder distention with wall thickening and internal sludge/debris, new since February. Findings are suspicious for early acute cholecystitis. 2. Large pancreatic mass, incompletely seen by ultrasound. The biliary stent contains internal debris and possible tumor infiltration. There is mild central intrahepatic ductal dilatation on the right. Pneumobilia is seen on the left. 3. Cavernous transformation of the portal vein. 4. Small volume ascites. CTA chest/abd/pelvis: Chest: 1. No evidence of pulmonary embolism or pneumonia. Abdomen: 1. 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 Intrahepatic portal veins are patent. 2. Interval placement of metal biliary stent with gallbladder findings concerning for acute cholecystitis. 3. Thick-walled, edematous cecum may be secondary to adjacent gallbladder inflammation, however concomitant typhlitis is an additional consideration in a neutropenic patient. Pelvis: 1. Moderate ascites without adenopathy or mass. CXR- personally interpreted - normal. Catheter noted in SVC. Exam: NAD AAOX3 RRR CTA B S/NT/ND MEDS: SEE MED REC F/U: PER ABOVE TOTAL TIME SPENT ON D/C IS 35 MINS
--- NOTE | 2018-05-25 12:32 | ASMTLACE ---
LACE Length of stay for Answers: 4-6 days current admission Acuity / Level of Answers: Yes Care: Did the patient have an inpatient admission? Comorbidities - select Answers: Any tumor (including all that apply lymphoma or leukemia) Coronary Artery Disease Other Notes: cholecystitis # of Emergency department Answers: 1-2 visits in the last 6 months Score: 13 Date Signed: 05/25/2018 12:31 PM Electronically Signed By:Jessica Winn
[2018-05-25] MEDS: oxyCODONE IR 5 MG TAB PO PRN (13:15)
--- NOTE | 2018-05-25 15:39 | ASMTDCNOTE ---
Case Management Discharge Discharge Order Complete? Answers: Yes Patient to Obtain Answers: via Family Medications Transportation Arranged Answers: Family/Friends Transport will Pick (Date 05/25/2018 12:00 AM & Time) Family Notified Answers: Yes Notes: by pt Discharge Comments Notes: Spoke with pt in the room. Pt is single and lives alone, however her sister is planning to stay with her for the next few days. Therapies are recommending HHC and / supervision, however pt feels she can get along without home therapy and she climbed stairs with PT today with assistance. Pt also had eval with [facility] while inpatient and has not yet decided if she will add to treatment. No CM needs noted at this time. Date Signed: 05/25/2018 03:39 PM Electronically Signed By:Jessica Winn
--- NOTE | 2018-05-25 15:44 | ASDISCHSUM ---
Discharge Information Plan Status:Home with No Needs Medically Cleared to Leave:05/24/2018 Discharge Date:05/25/2018 01:30 PM CM D/C Disposition:Home, Routine, Self-Care ADT D/C Disposition:Home, Routine, Self-Care Projected Discharge Date:05/22/2018 11:00 AM Transportation at D/C:Family Discharge Delay Reason: Follow-Up Date:05/22/2018 11:00 AM Discharge Slot: Final Diagnosis:cholecystitis Placement Information Referral Type:Palliative Care Referral ID:[id number] Provider Name: Address 1: Phone Number: Address 2: Fax Number: City: [place]: State: Patient Contact Information Contact Name:FIORDALIZA Relationship: Address: Work Phone: City: [facility] Phone: [facility] Code: Email: Financial Information Financial Class:BCOP Primary Plan Desc: OUT OF STATE [facility] Primary Plan Number:[id number] Secondary Plan Desc: Secondary Plan Number: Assessment Information LACE LACE Length of stay for Answers: 4-6 days current admission Acuity / Level of Answers: Yes Care: Did the patient have an inpatient admission? Comorbidities - select Answers: Any tumor (including all that apply lymphoma or leukemia) Coronary Artery Disease Other Notes: cholecystitis # of Emergency department Answers: 1-2 visits in the last 6 months Score: 13 Date Signed: 05/25/2018 12:31 PM Electronically Signed By:Jessica Winn [facility] Progress Note CM Note CM Note Notes: Chart reviewed. 63 year old female admitted via ED with pain. History of pancreatic cancer presents with acute cholecystitis. Surgery to consult. CM to follow for needs, Plan: TBD Date Signed: 05/19/2018 04:32 PM Electronically Signed By:Mare Soliman RN [facility] CM Progress Note CM Note CM Note Notes: Patient plan of care reviewed in rounds. 63 year old female admitted with necrotic gallbladder and stage IV pancreatitis. [facility] met with patient today. She currently lives independently. CM to follow for needs. Plan: Home with palliative support when medically cleared for discharge. Date Signed: 05/23/2018 01:10 PM Electronically Signed By:Mare Soliman RN Case Management Discharge Plan Note Case Management Discharge Discharge Order Complete? Answers: Yes Patient to Obtain Answers: via Family Medications Transportation Arranged Answers: Family/Friends Transport will Pick (Date 05/25/2018 12:00 AM & Time) Family Notified Answers: Yes Notes: by pt Discharge Comments Notes: Spoke with pt in the room. Pt is single and lives alone, however her sister is planning to stay with her for the next few days. Therapies are recommending [facility] and 24/7 supervision, however pt feels she can get along without home therapy and she climbed stairs with PT today with assistance. Pt also had eval with [facility] while inpatient and has not yet decided if she will add to treatment. No CM needs noted at this time. Date Signed: 05/25/2018 03:39 PM Electronically Signed By:Jessica Winn Intervention Information
== END 2018-05-25 13:30 | disposition home or self-care (01) | DRG 415 ==
LOC: F1N 15:33 → OBSVTOIN 05-20 16:01 → F2N 05-21 13:40 → F1N 05-22 15:03
PROVIDERS: ADMIT Internal Medicine; ATTEND Internal Medicine
PROC: 0FT40ZZ Resection of Gallbladder, Open Approach (ICD-10-PCS; principal; 2018-05-21 09:30)
DX: K81.0 Acute cholecystitis (principal); C25.9 Malignant neoplasm of pancreas, unspecified; R18.8 Other ascites; E87.6 Hypokalemia; D64.9 Anemia, unspecified; I10 Essential (primary) hypertension; E78.5 Hyperlipidemia, unspecified; Z53.31 Laparoscopic surgical procedure converted to open procedure
CPT/HCPCS: 84484-ER; 86301-90; 96374; 97116-GP; 97162-GP; 97165-GO; 97530-GO; 97530-GP; 97535-GO; A9537; G0378; J1170; J1650; J2185; J2250; J2270; J2370; J2405; J2704; J2765; J3010; Q9967

== ENCOUNTER → 2018-08-03 | Outpatient (CLI) | payer BC | LOC: FIMAGING 14:15 | PROVIDERS: ATTEND Nurse Practitioner | DX: R11.10 Vomiting, unspecified (principal); J90 Pleural effusion, not elsewhere classified; M47.814 Spondylosis without myelopathy or radiculopathy, thoracic region; Z96.89 Presence of other specified functional implants ==

== ENCOUNTER 2018-08-07 14:33 | Inpatient (IN) | payer BC ==
[2018-08-07] MEDS ORDERED: ACETAMINOPHEN 325 MG TAB PO PRN (15:12)
[2018-08-07] MEDS ORDERED: MONTELUKAST SODIUM 10 MG TAB PO PRN (16:20)
--- NOTE | 2018-08-07 16:33 | PDGENHP ---
<Abigail Lugo - Last Filed: 08/07/18 16:50> History and Physical - Chief Complaint Dehydration, failure to thrive - History of Present Illness 63 y/o female w/ hx of terminal pancreatic cancer and CBD stent has been directly admitted from Dr. Dumont's office, [facility], d/t dehydration and failure to thrive. For the last few weeks, she reports weakness, nausea, and diarrhea. No hematochezia. Attempts PO intake. Denies vomiting, CP, palpitations, SOB. No difficulty urinating. She is being admitted for treatment and monitoring. History Information - Allergies/Home Medication List Allergies/Adverse Reactions: cephalexin monohydrate [From [employer]] Allergy (Verified 05/19/18 14:26) Rash Penicillins Allergy (Verified 05/19/18 14:26) Rash Yeast Allergy (Verified 05/19/18 07:43) Home Medications: Atorvastatin Calcium [Lipitor 10 mg (*)] 10 mg PO DAILY 05/19/18 [Last Taken Unknown] Gabapentin [Neurontin 300 MG (*)] 600 mg PO HS 05/19/18 [Last Taken Unknown] Loratadine [Claritin 10 mg] 10 mg PO DAILY PRN 05/19/18 [Last Taken Unknown] Montelukast Sodium [Singulair 10 mg (*)] 10 mg PO DAILY PRN 05/19/18 [Last Taken Unknown] Oxybutynin Chloride [Ditropan Xl] 10 mg PO DAILY 05/19/18 [Last Taken Unknown] Potassium Cl [Klor-Con 10 meq (RX)] 10 meq PO BID 05/19/18 [Last Taken 08/07/18 09:00] Furosemide [Lasix 20 MG (*)] 20 mg PO DAILY 08/07/18 [Last Taken Unknown] Herbals/Supplements -Info Only 1 ea PO DAILY 08/07/18 [Last Taken Unknown] Loperamide HCl [Imodium 2 mg (*)] 2 mg PO PRN PRN 08/07/18 [Last Taken Unknown] MIRTAZAPINE [Remeron 7.5 mg] 7.5 mg PO HS 08/07/18 [Last Taken Unknown] Ondansetron Odt [Zofran Odt 4 mg (*)] 8 mg PO Q8 PRN 08/07/18 [Last Taken Unknown] Prochlorperazine Maleate [Compazine 10mg (*)] 10 mg PO Q6HRS PRN 08/07/18 [Last Taken Unknown] I have personally reviewed and updated: family history, medical history, social history, surgical history Past Medical History: pancreatic cancer (diagnosed 07/2016, followed by Dr Dumont , underwent chemo and XRT, last on chemo 08/2017), HTN - Surgical History Reports: cholecystectomy (May 2018) Additional surgical history: CBD stent placement, no abdominal surgeries - Family History Positive for: non-pertinent - Social History Smoking Status: Never smoked Alcohol Use: None Drug Use: None Additional social history: Lives alone, sister (CHAYO Urena) at bedside and brother. 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 They are seeking long-term disability. Review of Systems Review of Systems: ROS: 10pt was reviewed & negative except for what was stated in HPI & below Physical Exam Physical Exam: Lab data and imaging were reviewed. WBC: 15.75 RBC/H/H: 2.96/8.4/24.2% Plt: 94 Na: 132 BUN/Cr: 33/1.8 AST/ALT/Alk Phos: 71/47/172 Abdominal xray 08/03/18: CBD stent stable in place RUQ, no SBO, ascites suspected Temp Pulse Resp BP Pulse Ox 36.4 C 74 14 111/71 98 08/07/18 15:48 08/07/18 15:48 08/07/18 15:48 08/07/18 15:48 08/07/18 15:48 Constitutional: chronically ill appearing Eyes: PERRL, anicteric sclera, EOMI Ears, Nose, Mouth, Throat: hearing normal, ears appear normal, no oral mucosal ulcers, dry mucous membranes Cardiovascular: regular rate and rhythym, no murmur, rub, or gallop, No edema Respiratory: reduced air movement Gastrointestinal: normoactive bowel sounds, soft, non-tender abdomen, no palpable masses Genitourinary: no bladder fullness, no bladder tenderness Skin: warm, normal color, no rashes or abrasions, no fluctuance, no induration, No mottled Musculoskeletal: no muscle tenderness, normal joint ROM, no joint effusions, generalized weakness Neurologic: AAOx3, sensation intact bilaterally, CN II-XII Intact Psychiatric: interacting appropriately, not anxious, not encephalopathic, thought process linear Lymph, Heme, Immunologic: no cervical LAD, no supraclavicular LAD Lab Data & Imaging Review Serum Osmolality 289 mosmo/kg (280-297) 08/07/18 15:50 Crossmatch IS Only See Detail 08/07/18 15:56 Assessment & Plan Assessment: 63 y/o female w/ terminal pancreatic cancer that was diagnosed in 2017 presents as a direct admit from [facility] d/t failure to thrive, dehydration, nausea, weakness and diarrhea. #Nausea, weakness, diarrhea -GI pathogen panel pending to r/o c-diff/viral. High white count of 15K+, afebrile. -anti-emetics PRN -PT/OT to evaluate and treat #VINITA: BUN/Cr 33/1.8 most likely d/t poor/reduced PO intake and fluid loss from diarrhea -Serum osm/urine osm/urine sodium pending to r/o SIADH -IVF x 2 bags; recheck CMP in AM -Encourage PO intake -Avoid nephrotoxic agents; holding her home statin and diuretic #Mild hypovolemic hyponatremia (132) : most likely d/t poor/reduced PO intake and fluid loss from diarrhea -IVF x 2 bags; recheck CMP in AM -Encourage PO intake #Pancreatic cancer -Dr. Dumont sent pt to hospital. Oncology consulted however already aware of her presence -Requested abdominal and pelvis CT w/o contrast; pending -Palliative care consult #Chronic anemia: H/H 8.4/24.2 -Transfuse 1 unit RBC -Recheck CBC in AM #HTN: stable Diet: Regular Code: DNR VTE ppx: SCDs (consider lovenox or heparin subq once renal function improves and /or platelet count improves) Dispo: Admit to obs <Joaquin Fischer - Last Filed: 08/07/18 17:52> History and Physical - History of Present Illness Review of Systems Review of Systems: Physical Exam Physical Exam: Temp Pulse Resp BP Pulse Ox 36.4 C 74 14 111/71 98 08/07/18 15:48 08/07/18 15:48 08/07/18 15:48 08/07/18 15:48 08/07/18 15:48 Lab Data & Imaging Review Serum Osmolality 289 mosmo/kg (280-297) 08/07/18 15:50 Patient ABO/Rh A POSITIVE 08/07/18 15:56 Antibody Screen NEGATIVE 08/07/18 15:56 Crossmatch IS Only See Detail 08/07/18 15:56 Assessment & Plan Assessment: Patient seen and evaluated independently and care plan reviewed with JASMINE Lugo, agree with her assessment as outlined above with exceptions as noted in separate documentation.
--- NOTE | 2018-08-07 17:31 | HOSPPROG ---
Hospitalist Progress Note Assessment/Plan: [address] Dumont with pancreatic cancer presenting with weakness, nausea and diarrhea with volume depletion and generalized weakness # n/v/d: not currently undergoing chemotherapy and unclear if this is infectious versus progression of disease, sent here as a direct admit from oncology, GI pathogen panel pending and abd/pelvis CT ordered and pending as well. # brisa on ckd: looks like baseline creatinine in the past had been closer to 1.2 , but trending up over recent days/weeks and now 1.9, likely due to above with poor oral intake for some time. IVF overnight, will get bladder scan, repeat in am. # anemia: has been slowly trending down, no suggestion of active bleeding and likely due to chronic disease, given generalized weakness will transfuse 1 unit PRBC today # pancreatic cancer: locally advanced at diagnosis and unresectable, she had previously undergone chemo with gemcitabine and abraxane with initial response as well as xrt but unresectable given proximity to celiac plexus. Sounds as though she has not had chemo since 08/2017, palliative has been involved but some uncertainty remains around goals of care in terms of further treatment or not--repeat scan as above will eval degree of progression # leukocytosis: with GI sxs as above and query infection underlying that but otherwise no real infectious sxs and no other SIRS criteria being met, trending # biliary obstruction: requiring CBD stent in the past, LFTs stable with minor increase in alk phos but no elevated bili or transaminases # DM2: last A1c of 6.9 and sugars on arrival here wnl without any DM meds on home med list # severe malnutrition: patient with reported ongoing weight loss and albumin of 1.9 on arrival, will ask dietary to assess # thrombocytopenia: stable, no e/o active bleeding # IP status # DNR # Patient new to my care. Old records reviewed and summarized as above. Care plan reviewed with JASMINE Lugo, please see her H&P for further details. Objective: Vital Signs Temp Pulse Resp BP Pulse Ox 36.4 C 74 14 111/71 98 08/07/18 15:48 08/07/18 15:48 08/07/18 15:48 08/07/18 15:48 08/07/18 15:48 ICD10 Worksheet Patient Problems: Problems Problem Status Onset History of pancreatic cancer Acute
--- NOTE | 2018-08-07 17:45 | GCON ---
[f rep st] CONSULTATION HEMATOLOGY CONSULTATION HISTORY OF PRESENT ILLNESS: The patient is a very pleasant 63-year-old female who was diagnosed with a locally advanced and unresectable pancreatic carcinoma in July of 2016. She was initially treated with gemcitabine and Abraxane in the hope of making this resectable, but unfortunately, although there was significant tumor shrinkage, we never were able to obtain shrinkage around the celiac vessel. She underwent stereotactic radiosurgery in December of 2016, and her chemotherapy was discontinued in August of 2017 after we had achieved a significant response, and she was having cumulative neuropathy. She was followed. She had a gradually rising tumor marker, and there was evidence of progression on recent CT scans. She was therefore restarted on gemcitabine, Abraxane on July 11 and received a 2nd dose on July 25. On this regimen, her tumor marker, which had been quite elevated at 16,000, had decreased to 1400. Unfortunately, she has had significant inanition and decreased p.o. intake. Creatinine has elevated to 1.8. She is having pedal edema and fairly significant anasarca. Despite frequent hydration this past week, she comes in today and is really having significant difficulty in caring for herself and is being admitted for further evaluation. PAST MEDICAL HISTORY: Significant for diabetes, hypertension, hyperlipidemia, and asthma. FAMILY HISTORY: Her mother had colon cancer in her 70s. PERSONAL AND SOCIAL HISTORY: She is single. She previously worked in a law office. REVIEW OF SYSTEMS: Positive for significant inanition. She denies any pain at this time. PHYSICAL EXAMINATION: GENERAL APPEARANCE: She is pale. She is responsive. VITAL SIGNS: Blood pressure 112/72, pulse 75, temperature is 97.4, O2 saturation 99% on room air. HEENT: She is not icteric, but is quite pale. I detect no adenopathy. Mucous membranes appear well hydrated. LUNGS: Clear. CARDIAC: Unremarkable. ABDOMEN: Shows some anasarca. There is no clear fluid wave. EXTREMITIES: Show 1+ edema. NEUROLOGIC: Nonfocal, but she is diffusely weak. LABORATORY DATA: White count today is 15,000, hemoglobin is 8.4, hematocrit 24.2, platelets are 94,000. Sodium is 132, potassium 4.1, CO2 16, creatinine is 1.8, albumin is 1.8, AST is 71, alkaline phosphatase is 172. IMPRESSION: Patient with pancreatic carcinoma, recently started back on chemotherapy. Despite decline in her tumor marker, she has not been doing well. I think this may be multifactorial related to side effects of chemotherapy. The possibility exists of progression of her pancreatic cancer despite declining tumor marker. Her nutritional status is poor, and she is anemic. She does have an elevated white count today and the possibility of an occult infection, even in the absence of fever is a consideration. She is having difficulty caring for self at home. PLAN: At this time is to admit. I think transfusion of 1 unit of packed RBCs and some hydration might be indicated. I think a noncontrast CT scan may also be helpful though unfortunately it may not define her disease very well. I think social work consult regarding possible placement at least temporarily is a consideration. I should note that at some point during her disease course, a biliary stent has been placed because of obstructive jaundice, and I note she also had a recent cholecystectomy for a gangrenous gallbladder 3 or 4 months ago. /[id number]/MODL MTDD
[2018-08-07] MEDS: NS 1,000 ML IV SCH (20:39)
[2018-08-07] MEDS: GABAPENTIN 300 MG CAP PO SCH (20:39)
[2018-08-07] MEDS ORDERED: MIRTAZAPINE 15 MG TAB PO SCH (21:00)
--- NOTE | 2018-08-07 21:15 | PDMN ---
Medical Necessity Medical necessity: Pt meets inpt criteria per MD order and MCG M-123, Dehydration. 63 y/o w/pancreatic cancer presenting w/weakness, nausea, and diarrhea, admitted w/dehydration, volume depletion, gen weakness, hyponatremia, VINITA on CKD, anemia, and leukocytosis. H/H 8.4/24.2, 1 unit blood transfused, Na 132, creatinine 1.9. Severe malnutrition, ongoing wt loss, albumin of 1.9. GI pathogen panel pending, abd/pelvis CT shows increased ascites, mild to mod L pleural effusion, hepatic steatosis, mild increase in mass pancreatic head, and thickening of ascending colon. Anticipate>2MN for further eval/monitoring of above.
[2018-08-08 05:40] LABS: PLATELET COUNT 68 10^3/uL (150-400)
[2018-08-08] MEDS: NS 1,000 ML IV SCH (08:23)
--- NOTE | 2018-08-08 10:21 | SOAPPROG ---
SOAP Progress Note Assessment/Plan: Assessment: 1. pancreatic cancer, scan shows increasing ascites, left pleural effusion, possibly subtle increase mass pancreatic head 2. failure to thrive 3. renal failure 4. ascites 5. left pleural effusion Plan:Paracentesis today for routine studies including cytology, trial marinol 08/08/18 10:16 Subjective: Feels a bit better Objective: Vital Signs Temp Pulse Resp BP Pulse Ox 97.5 F 86 16 105/69 99 08/08/18 05:49 08/08/18 09:20 08/08/18 09:20 08/08/18 09:20 08/08/18 09:20 Microbiology 08/07/18 23:00 Gastrointestinal Tract Panel (PCR) - Final Stool No Organism Detected By Pcr Laboratory Results 08/08/18 04:40 08/08/18 04:40 08/07/18 08/08/18 08/09/18 05:59 05:59 05:59 Intake Total 1360 Output Total 300 200 Balance 1060 -200 Physical Exam - Physical Exam General Appearance: alert Respiratory: decreased breath sounds Abdomen: normal bowel sounds, non-tender, ascites Extremities: swelling ICD10 Worksheet Patient Problems: Problems Problem Status Onset History of pancreatic cancer Acute
[2018-08-08] MEDS: OXYBUTYNIN 5 MG EXT REL TAB PO SCH (10:57)
--- NOTE | 2018-08-08 13:50 | PDCONSULT ---
New Car Salesperson Note: PALLIATIVE CARE Floridalma Mae is a 63 yr old female with pancreatic cancer. She is being followed by Dr. Dumont at [facility]. Floridalma is currently on [facility] palliative care program. She had one initial visit but has declined subsequent visits, stating that she was 'doing fine' and did not need a visit. Floridalma was admitted to [facility] on 08/07/18 for weakness, nausea, and diarrhea. When I visit her today, she is pale and thin. She is visibly weak and speaks in a whisper. Floridalma tells me that she is waiting to hear whether or not this is an infectious process or disease progression. She says 'I know that I'll need to go to assisted living now because I'm not able to live alone anymore.' She says that she is 'ok with that' and understands that her care needs have increased. Floridalma says that she is agreeable to a follow up palliative care visit when she is discharged, to discuss symptom management and goals of care. [facility] scheduling will call patient today to schedule follow up visit. (SISSY Reynolds updated following visit.) Mika Portillo NP
[2018-08-08] MEDS ORDERED: LIDOCAINE 1% 300 MG/30 ML SDV ONE (14:05)
--- NOTE | 2018-08-08 15:56 | HOSPPROG ---
Hospitalist Progress Note Assessment/Plan: The patient is a 63-year-old female with PMH localized invasive pancreatic cancer who was admitted for diarrhea, dehydration, gen weakness, FTT. ASSESSMENT/PLAN: Colitis -pt w/ diarrhea/colitis since hospitalization in May for cholecystectomy -GI path panel negative. -Consult GI - consider colonoscopy VINITA, likely prerenal NAGMA and Dehydration, 2/2 diarrhea Hyponatremia, hypovolemic/hypotonic improved - 2/2 diarrhea/VINITA -check FeNa. -continue IV fluids Pancreatic cancer, s/p CBD metal stent Ascites L pleural effusion -s/p paracentesis today -- FU cytology. -Onc recs appreciated. -Discussed results of CT abd/pelv w/ patient -- slightly larger panc mass, ascites, colitis, fatty liver (mets can't be excluded w/o contrast). Discussed that ascites cytology is pending. Hepatic steatosis H/o recent cholecystectomy Gen Weakness, 2/2 above -PT/OT. VTE prophylaxis: Lovenox. Code Status: DNR Status: Inpatient for > 2 midnight stay. Disposition: Med surg ____ SUBJECTIVE: Today patient feels slightly better. Still feels very weak. Still has diarrhea, had 3 episodes of liquid to loose stool today. She did not look at the color. OBJECTIVE: Physical Exam: General: The patient is a thin female who is alert and in no acute distress. HEENT: normocephalic, extraocular movements intact, conjunctivae clear. Mucous membranes dry. Neck: trachea midline, no visible masses. CV: +S1/S2, RRR, no MRG. Resp: unlabored, CTAB no RRW. Abd: soft and mildly distended. Bowel sounds present. Mild tenderness diffusely. Musculoskeletal: Reduced muscle tone/bulk. Neuro: cranial nerves II - XII grossly intact. Intact gross motor and sensory function. Psych: Depressed mood and appropriate affect. Skin: + pallor. No petechiae. Heme/lymph: No peripheral edema at bilateral ankles. Labs/Imaging/Other Tests: CT abd/pelv w/o contrast: 1. Large amount of ascites has increased 2. Mild to moderate left pleural effusion has developed 3. Hepatic steatosis with the margins of the liver difficult to delineate from the adjacent ascites. Underlying hepatic metastases are not well characterized without IV contrast. 4. Thickening of the ascending colon. This was also present previously. Consider ascending colitis possibly from C. Difficile infection or sequela from portal invasion by pancreatic mass. 5. Mild increase in mass pancreatic head. Objective: Vital Signs Temp Pulse Resp BP Pulse Ox 36.4 C 72 16 112/79 99 08/08/18 05:49 08/08/18 11:09 08/08/18 11:09 08/08/18 11:09 08/08/18 11:09 Microbiology 08/07/18 23:00 Gastrointestinal Tract Panel (PCR) - Final Stool No Organism Detected By Pcr Laboratory Results 08/08/18 04:40 08/08/18 04:40 08/07/18 08/08/18 08/09/18 05:59 05:59 05:59 Intake Total 1360 Output Total 300 400 Balance 1060 -400 - Time Spent With Patient Time Spent with Patient: greater than 35 minutes Time Spent with Patient: Greater than 35 minutes spent on this patients care, greater than 50% of time spent counseling, educating, and coordinating care regarding the above mentioned plan. ICD10 Worksheet Patient Problems: Problems Problem Status Onset History of pancreatic cancer Acute
--- NOTE | 2018-08-08 16:28 | ASMTCMCOM ---
CM Note CM Note Notes: 08/08/2018 Case Management Note Discussed pt during rounds. Pt admitted for pancreatic cancer, FTT, dehydration, anemia and weakness. Pt followed [facility] onsite today, please see note. Faxed updates via [employer]. PT recommending SNF rehab. Met w/pt, brother Bradford [phone] and sister in law to discuss d/c needs. All in agreement with SNF rehab. Provided blue book and SNF list. After discussion faxed referrals to [facility] [place], [facility] and [facility]. Family planning for pt to move into assisted living after SNF rehab stay. Provided blue book for information. Discussed that family should tour area assisted livings as some have wait lists. Case Management d/c poc: SNF rehab pending acceptance. Case Management to follow. Date Signed: 08/08/2018 04:27 PM Electronically Signed By:Windy Lucas RN
[2018-08-08] MEDS: DRONABINOL 2.5 MG CAP PO SCH (21:56)
[2018-08-08] MEDS: GABAPENTIN 300 MG CAP PO SCH (21:56)
[2018-08-09] MEDS: DRONABINOL 2.5 MG CAP PO SCH ×2 (09:15→21:34)
[2018-08-09] MEDS: OXYBUTYNIN 5 MG EXT REL TAB PO SCH (09:15)
[2018-08-09] MEDS: LOPERAMIDE HCL 2 MG CAP PO PRN (11:10)
--- NOTE | 2018-08-09 11:40 | SOAPPROG ---
SOAP Progress Note Assessment/Plan: Assessment: 1. pancreatic cancer, scan shows increasing ascites, left pleural effusion, possibly subtle increase mass pancreatic head 2. failure to thrive 3. renal failure 4. ascites, 2500 ml para yesterday 5. left pleural effusion 6. Diarrhea, severe Plan:trial cholestyramine and scheduled Imodium for diarrhea, await cytology 08/08/18 10:16 08/09/18 11:37 Subjective: Weak, diarrhea Objective: Vital Signs Temp Pulse Resp BP Pulse Ox 97.5 F 79 16 116/76 97 08/09/18 11:03 08/09/18 11:03 08/09/18 11:03 08/09/18 11:03 08/09/18 11:03 Microbiology 08/08/18 10:16 Gram Stain - Final Peritoneal Fluid - Aspirate 08/07/18 23:00 Gastrointestinal Tract Panel (PCR) - Final Stool No Organism Detected By Pcr Laboratory Results 08/08/18 04:40 08/08/18 04:40 08/08/18 08/09/18 08/10/18 05:59 05:59 05:59 Intake Total 1360 3100 Output Total 300 900 Balance 1060 2200 ICD10 Worksheet Patient Problems: Problems Problem Status Onset History of pancreatic cancer Acute
[2018-08-09] MEDS ORDERED: CHOLESTYRAMINE/SUCROSE 4 GM PKT PO SCH (11:45)
[2018-08-09] MEDS ORDERED: LOPERAMIDE HCL 2 MG CAP PO SCH (12:00)
[2018-08-09] MEDS: CHOLESTYRAMINE/SUCROSE 4 GM PKT PO SCH (13:14)
[2018-08-09] MEDS ORDERED: PEG 3350/NA SULF,BICARB,CL/KCL (GAVILYTE-G) 4000 ML BTL PO ONE (15:33)
--- NOTE | 2018-08-09 16:11 | ASMTCMCOM ---
CM Note CM Note Notes: Met with Pt and for discharge planning and they have chosen [facility] who they met with today. Contacted [facility] and they are waiting for authorization. CM available for needs. PLAN: SNF/Discharge to [facility] if accepted. Date Signed: 08/09/2018 04:10 PM Electronically Signed By:Di Barajas
--- NOTE | 2018-08-09 16:17 | GCON ---
[f rep st] CONSULTATION DATE OF CONSULTATION: 08/09/2018 REFERRING PHYSICIAN: Maura García DO REASON FOR CONSULTATION: Diarrhea and abnormal CT of the colon. HISTORY OF PRESENT ILLNESS: The patient is a 63-year-old female with unresectable pancreatic cancer with a history of a common bile duct stent for a malignant stricture, who was admitted from Dr. Dumont's office at [facility] with dehydration, failure to thrive, nausea, weakness, and frequent watery bowel movements. She has denied any blood in her stool or black tarry stools. She has had no prior history of colitis. MEDICATIONS: Her home meds include atorvastatin 10 mg p.o. daily, gabapentin 600 mg p.o. q.h.s., loratadine 10 mg p.o. p.r.n., oxybutynin chloride 10 mg p.o. daily, potassium chloride 10 mEq p.o. b.i.d., furosemide 20 mg p.o. daily, Montelukast sodium 10 mg p.o. p.r.n., loperamide 2 mg p.o. q.6 hours p.r.n. diarrhea, Remeron 7.5 mg p.o. q.h.s., Zofran 8 mg p.o. q.6 hours p.r.n. nausea, Compazine 10 mg p.o. q.6 hours p.r.n. nausea, and herbal supplements. ALLERGIES: She is allergic to cephalexin, penicillin, and yeast. PAST MEDICAL HISTORY: Significant for pancreatic cancer diagnosed in July of 2016, not resectable, status post chemo and radiation therapy. Last chemotherapy was in August of 2017. She also has a history of hypertension. PAST SURGICAL HISTORY: Significant for cholecystectomy in May 2018, common bile duct stent placement in the past. FAMILY HISTORY: Negative for pancreatic or GI malignancies. SOCIAL HISTORY: Nonsmoker. Does not drink alcohol. Patient lives independently alone. She has a brother in the area. She worked as a legal contracts specialist. She is presently disabled. REVIEW OF SYSTEMS: Other than noted in the HPI were negative for comprehensive review of systems on my examination today. PHYSICAL EXAMINATION: GENERAL: A cachectic-appearing woman, looking very fatigued, in bed, in moderate distress. VITALS: Temperature 36.4 Celsius, pulse 79 regular, blood pressure 116/76, respiratory rate was 16, O2 saturation 97% on room air. INTEGUMENT: Clear. HEENT: Head atraumatic, normocephalic. Pupils equal, round, reactive to light. EOMs were intact. Sclerae not icteric. Mucous membranes moist. Dentition fair. NECK: Supple. Trachea midline. LYMPHATICS: No cervical or axillary adenopathy palpated. PULMONARY: Lungs clear to percussion and auscultation. CARDIOVASCULAR: Regular rhythm and rate. Normal S1, S2 without murmur. Peripheral pulses strong bilaterally. No pedal edema. GASTROINTESTINAL: Abdomen supple. Positive bowel sounds. There is mild discomfort in all 4 quadrants to deep palpation without palpable mass or rebound. No fluid wave noted. EXTREMITIES: Without deformity. NEURO : Patient was alert, was mildly lethargic, responded to questions, and oriented x3. No focal neurologic deficits. LABS: White count 15.95, hemoglobin 8.9, hematocrit 26.0, platelets 68,000. Total bilirubin 1.2, AST 69, ALT 51, ALP 165, albumin 1.7, sodium 134, potassium 4.0, chloride 111, CO2 of 16, anion gap 7, BUN 31, creatinine 1.7. CT scan of the abdomen and pelvis revealed a large amount of ascites with interval increase in size, mild to moderate left pleural effusion (new), hepatic steatosis with margins of liver difficult to delineate from the adjacent ascites, underlying hepatic metastases not well visualized due to no IV contrast. There was thickening of the colon wall, especially in the ascending colon. Ultrasound-directed paracentesis yesterday revealed 2500 mL of straw-colored ascites which was removed. Peritoneal fluid culture for fungus and mycobacterium was pending. Stool PCR for GI tract panel was negative. IMPRESSION: 1. Acute on chronic diarrhea with dehydration and renal insufficiency ( prerenal azotemia) with evidence of colitis on CT scan, rule out Clostridium difficile negative colitis, rule out infiltrative process of the colon from pancreatic cancer, rule out ischemic colitis. 2. Advanced pancreatic cancer. 3. Biliary obstruction from pancreatic cancer with status post stent placement without evidence of obstruction. RECOMMENDATIONS: 1. Clear liquid diet. 2. Colyte prep. 3. Total colonoscopy in a.m. /[id number]/MODL MTDD
--- NOTE | 2018-08-09 16:34 | HOSPPROG ---
Hospitalist Progress Note Assessment/Plan: The patient is a 63-year-old female with PMH localized invasive pancreatic cancer who was admitted for diarrhea, dehydration, gen weakness, FTT. ASSESSMENT/PLAN: Colitis -pt w/ diarrhea/colitis since hospitalization in May for cholecystectomy -GI path panel negative. -Consult GI - consider colonoscopy VINITA, likely prerenal NAGMA and Dehydration, 2/2 diarrhea Hyponatremia, hypovolemic/hypotonic improved - 2/2 diarrhea/VINITA -check FeNa. -continue IV fluids Pancreatic cancer, s/p CBD metal stent Ascites L pleural effusion -s/p paracentesis today -- FU cytology. -Onc recs appreciated. -Discussed results of CT abd/pelv w/ patient -- slightly larger panc mass, ascites, colitis, fatty liver (mets can't be excluded w/o contrast). Discussed that ascites cytology is pending. Hepatic steatosis H/o recent cholecystectomy Gen Weakness, 2/2 above -PT/OT. VTE prophylaxis: Lovenox. Code Status: DNR Status: Inpatient for > 2 midnight stay. Disposition: Med surg Plan: additional IVF today schedule Imodium (was not receiving it PRN) Await GI reccs Subjective: still with diarrhea. no abd pain. no cp or sob. Objective: Vital Signs Temp Pulse Resp BP Pulse Ox 36.4 C 86 16 113/76 98 08/09/18 16:24 08/09/18 16:24 08/09/18 16:24 08/09/18 16:24 08/09/18 16:24 Microbiology 08/08/18 10:16 Gram Stain - Final Peritoneal Fluid - Aspirate 08/08/18 10:16 Mycobacterial Smear (TRACIE) - Final Peritoneal Fluid - Aspirate Laboratory Results 08/08/18 04:40 08/08/18 04:40 08/08/18 08/09/18 08/10/18 05:59 05:59 05:59 Intake Total 1360 3100 Output Total 300 900 Balance 1060 2200 - Physical Exam Constitutional: no apparent distress, chronically ill appearing Eyes: PERRL, EOMI Ears, Nose, Mouth, Throat: dry mucous membranes Cardiovascular: regular rate and rhythym, no murmur, rub, or gallop, systolic murmur Respiratory: no respiratory distress, no rales or rhonchi, clear to auscultation Gastrointestinal: normoactive bowel sounds, soft, non-tender abdomen Genitourinary: no bladder fullness Skin: warm Musculoskeletal: generalized weakness Neurologic: AAOx3 Psychiatric: interacting appropriately, not anxious, not encephalopathic Lymph, Heme, Immunologic: No petechiae ICD10 Worksheet Patient Problems: Problems Problem Status Onset History of pancreatic cancer Acute
[2018-08-09] MEDS ORDERED: NS W/ 20 KCl/L 1,000 ML IV SCH (16:45)
[2018-08-09] MEDS: LOPERAMIDE HCL 2 MG CAP PO SCH ×2 (17:15→22:14)
[2018-08-09] MEDS: NS 1,000 ML IV SCH (18:24)
[2018-08-09] MEDS: GABAPENTIN 300 MG CAP PO SCH (21:34)
[2018-08-10 04:49] LABS: PLATELET COUNT 78 10^3/uL (150-400)
[2018-08-10] MEDS: LOPERAMIDE HCL 2 MG CAP PO SCH ×4 (05:45→20:05)
[2018-08-10] MEDS: DRONABINOL 2.5 MG CAP PO SCH ×2 (08:18→20:06)
[2018-08-10] MEDS: OXYBUTYNIN 5 MG EXT REL TAB PO SCH (08:18)
[2018-08-10] MEDS: NS W/ 20 KCl/L 1,000 ML IV SCH ×2 (09:50→21:08)
[2018-08-10] MEDS ORDERED: LR 1,000 ML IV ONE (10:29)
--- NOTE | 2018-08-10 11:00 | PDANEPAE ---
ANE Past Medical History - Cardiovascular History Hx Hypertension: Yes Hx Arrhythmias: No Hx Chest Pain: No Hx Coronary Artery / Peripheral Vascular Disease: No Hx CHF / Valvular Disease: No Hx Palpitations: No - Pulmonary History Hx COPD: No Hx Asthma/Reactive Airway Disease: No Hx Recent Upper Respiratory Infection: No Hx Oxygen in Use at Home: No Hx Sleep Apnea: No Sleep Apnea Screening Result - Last Documented: Positive - Neurologic History Hx Cerebrovascular Accident: No Hx Seizures: No Hx Dementia: No - Endocrine History Hx Diabetes: Yes Endocrine History Comment: NIDDM MANAGED BY DIET - Renal History Hx Renal Disorders: No - Liver History Hx Hepatic Disorders: Yes Hepatic History Comment: RECENTLY DX WITH PANCREATIC CYST - Neurological & Psychiatric Hx Hx Neurological and Psychiatric Disorders: No - Cancer History Hx Cancer: No - Congenital Disorder History Hx Congenital Disorders: No - GI History Hx Gastrointestinal Disorders: Yes Gastrointestinal History Comment: RECENT RUQ DISCOMFORT - Other Health History Other Health History: SUPERFICIAL LT LEG DVT 2009 - Chronic Pain History Chronic Pain: No - Surgical History Prior Surgeries: RT FOOT REMVL CYST 10/2015. HYSTERECTOMY. SINUS. RT BREAST BX. PILONIDAL CYSTECTOMY ANE Review of Systems Review of Systems: ANE Patient History - Allergies Allergies/Adverse Reactions: cephalexin monohydrate [From Keflex] Allergy (Verified 05/19/18 14:26) Rash Penicillins Allergy (Verified 05/19/18 14:26) Rash Yeast Allergy (Verified 05/19/18 07:43) - Home Medications Home Medications: Atorvastatin Calcium [Lipitor 10 mg (*)] 10 mg PO DAILY 05/19/18 [Last Taken Unknown] Gabapentin [Neurontin 300 MG (*)] 600 mg PO HS 05/19/18 [Last Taken Unknown] Loratadine [Claritin 10 mg] 10 mg PO DAILY PRN 05/19/18 [Last Taken Unknown] Montelukast Sodium [Singulair 10 mg (*)] 10 mg PO DAILY PRN 05/19/18 [Last Taken Unknown] Oxybutynin Chloride [Ditropan Xl] 10 mg PO DAILY 05/19/18 [Last Taken Unknown] Potassium Cl [Klor-Con 10 meq (RX)] 10 meq PO BID 05/19/18 [Last Taken 08/07/18 09:00] Furosemide [Lasix 20 MG (*)] 20 mg PO DAILY 08/07/18 [Last Taken Unknown] Herbals/Supplements -Info Only 1 ea PO DAILY 08/07/18 [Last Taken Unknown] Loperamide HCl [Imodium 2 mg (*)] 2 mg PO PRN PRN 08/07/18 [Last Taken Unknown] MIRTAZAPINE [Remeron 7.5 mg] 7.5 mg PO HS 08/07/18 [Last Taken Unknown] Ondansetron Odt [Zofran Odt 4 mg (*)] 8 mg PO Q8 PRN 08/07/18 [Last Taken Unknown] Prochlorperazine Maleate [Compazine 10mg (*)] 10 mg PO Q6HRS PRN 08/07/18 [Last Taken Unknown] - NPO status NPO Since - Liquids (Date): 08/10/18 NPO Since - Liquids (Time): 00:00 NPO Since - Solids (Date): 08/09/18 NPO Since - Solids (Time): 19:00 - Smoking Hx Smoking Status: Never smoked - Alcohol Use Alcohol Use: None ANE Labs/Vital Signs - Labs Result Diagrams: 08/10/18 04:40 08/10/18 04:40 - Vital Signs Blood Pressure: 92/64 Heart Rate: 73 Respiratory Rate: 16 O2 Sat (%): 98 Height: 170.18 cm Weight: 71.668 kg ANE Physical Exam - Airway Mallampati Score: Class 2 - ASA Status ASA Status: III ANE Anesthesia Plan Total IV Anesthesia: Yes
[2018-08-10] MEDS ORDERED: PROPOFOL/EMULSION 500 MG/50 ML BOTTLE IV ONE (11:02)
--- NOTE | 2018-08-10 11:39 | GIREPORT ---
[facility] - Endoscopy Department Patient Name: Floridalma Mae Procedure Date: 08/10/2018 10:32 AM Patient Type: Inpatient Attending MD/ ER Physician: César Velez MD Procedure: Colonoscopy Indications: Clinically significant diarrhea of unexplained origin, negative infecti ous markers. Providers: César Velez MD Medicines: General Anesthesia Complications: No immediate complications. Description of Procedure: After obtaining informed consent, the scope was passed under direct vis ion. Throughout the procedure, the patient's blood pressure, pulse, and oxyg en saturations were monitored continuously. The Colonoscope with irrigatio n channel was introduced through the anus and advanced to the cecum, identified by appendiceal orifice and ileocecal valve. The colonoscopy was performed without difficulty. The patient tolerated the procedure well. The quality of the bowel preparation was excellent. Findings: A diffuse area of moderately erythematous, eroded and granular mucosa w as found in the entire colon. Biopsies were taken with a cold forceps for histology. The perianal and digital rectal examinations were normal. Estimated Blood Loss: Estimated blood loss: none. Post Op Diagnosis: - Erythematous, eroded and granular mucosa in the entire examined colon . Biopsied. Endoscopic[ic findings c/w auto-immune induced inflammatory b owel. Recommendation: - [facility]. - Full liquid diet today. - Solumedrol 40 mg IV Qam. - The findings and recommendations were discussed with the patient. Attending Participation: I personally performed the entire procedure. César Velez MD César Velez MD 08/10/2018 11:38:42 AM This report has been signed electronicallyCésar Velez MD Number of Addenda: 0 Note Initiated On: 08/10/2018 10:32 AM Total Procedure Duration Time 0 hours 20 minutes 55 seconds [email or web address]
[2018-08-10] MEDS ORDERED: LR 500 ML IV PRN (11:40)
[2018-08-10] MEDS ORDERED: NALOXONE HCL 0.4 MG/ML INJ IVP PRN (11:40)
[2018-08-10] MEDS ORDERED: fentaNYL 100 MCG/2 ML INJ IVP PRN (11:40)
[2018-08-10] MEDS ORDERED: PHENYLEPHRINE HCL 100 MCG/ML SYR IVP PRN (11:40)
[2018-08-10] MEDS ORDERED: ONDANSETRON 4 MG/2 ML VIAL IVP PRN (11:40)
[2018-08-10] MEDS ORDERED: PROTOCOL MAGNESIUM 1 DOSE IV PRN (12:11)
[2018-08-10] MEDS ORDERED: PROTOCOL POTASSIUM 1 DOSE MISC PRN (12:11)
--- NOTE | 2018-08-10 12:15 | HOSPPROG ---
Hospitalist Progress Note Assessment/Plan: The patient is a 63-year-old female with PMH localized invasive pancreatic cancer who was admitted for diarrhea, dehydration, gen weakness, FTT. ASSESSMENT/PLAN: Colitis -pt w/ diarrhea/colitis since hospitalization in May for cholecystectomy -GI path panel negative. -e/o colitis on CT scan -GI will do colonoscopy today VINITA, likely prerenal -cont IV fluids NAGMA and Dehydration, 2/2 diarrhea Hyponatremia, hypovolemic/hypotonic improved - 2/2 diarrhea/VINITA Pancreatic cancer, s/p CBD metal stent for malignant stricture, unresectable pancreatic cancer Ascites L pleural effusion -s/p paracentesis today -- FU cytology. -Onc recs appreciated. -Discussed results of CT abd/pelv w/ patient -- slightly larger panc mass, ascites, colitis, fatty liver (mets can't be excluded w/o contrast). Discussed that ascites cytology is pending. Hepatic steatosis H/o recent cholecystectomy Gen Weakness, 2/2 above -PT/OT. VTE prophylaxis: Lovenox. Code Status: DNR Status: Inpatient for > 2 midnight stay. Disposition: Med surg Plan: additional IVF today Await colonoscopy results and GI reccs Subjective: awaiting colonoscopy. no cp or sob. no n/v Objective: Vital Signs Temp Pulse Resp BP Pulse Ox 36.0 C 67 15 94/68 L 99 08/10/18 11:37 08/10/18 11:37 08/10/18 11:37 08/10/18 11:37 08/10/18 11:37 Microbiology 08/08/18 10:16 Gram Stain - Final Peritoneal Fluid - Aspirate 08/08/18 10:16 Mycobacterial Smear (TRACIE) - Final Peritoneal Fluid - Aspirate Laboratory Results 08/10/18 04:40 08/10/18 04:40 08/09/18 08/10/18 08/11/18 05:59 05:59 05:59 Intake Total 3100 500 Output Total 900 400 5 Balance 2200 -400 495 - Physical Exam Constitutional: no apparent distress Eyes: PERRL Ears, Nose, Mouth, Throat: hearing normal, dry mucous membranes Cardiovascular: regular rate and rhythym, No edema Respiratory: no respiratory distress, no rales or rhonchi, clear to auscultation Gastrointestinal: normoactive bowel sounds, soft, non-tender abdomen, No tenderness Skin: warm Neurologic: AAOx3 Psychiatric: interacting appropriately, not anxious, not encephalopathic Lymph, Heme, Immunologic: No petechiae ICD10 Worksheet Patient Problems: Problems Problem Status Onset History of pancreatic cancer Acute
--- NOTE | 2018-08-10 12:19 | SOAPPROG ---
SOAP Progress Note Assessment/Plan: Assessment: 1. pancreatic cancer, scan shows increasing ascites, left pleural effusion, possibly subtle increase mass pancreatic head 2. failure to thrive 3. renal failure 4. ascites, 2500 ml para yesterday 5. left pleural effusion 6. Diarrhea, severe. Colonoscopy shows an acute colitis, biopsies are pending Plan:start Solumedrol, discussed with GI. Cytology pending on ascitic fluid. 08/08/18 10:16 08/09/18 11:37 08/10/18 12:16 Objective: Vital Signs Temp Pulse Resp BP Pulse Ox 96.8 F 67 15 94/68 L 99 08/10/18 11:37 08/10/18 11:37 08/10/18 11:37 08/10/18 11:37 08/10/18 11:37 Microbiology 08/08/18 10:16 Gram Stain - Final Peritoneal Fluid - Aspirate 08/08/18 10:16 Mycobacterial Smear (TRACIE) - Final Peritoneal Fluid - Aspirate Laboratory Results 08/10/18 04:40 08/10/18 04:40 08/09/18 08/10/18 08/11/18 05:59 05:59 05:59 Intake Total 3100 500 Output Total 900 400 5 Balance 2200 -400 495 ICD10 Worksheet Patient Problems: Problems Problem Status Onset History of pancreatic cancer Acute
[2018-08-10] MEDS: methylPREDNISolone SOD SUCC 40 MG/ML VIAL IVP SCH (13:04)
[2018-08-10] MEDS: CHOLESTYRAMINE/SUCROSE 4 GM PKT PO SCH (13:05)
--- NOTE | 2018-08-10 16:50 | ASMTCMCOM ---
CM Note CM Note Notes: Met with Pt to Informed her that because of her out of state insurance, only 40% of her stay and rehab will be covered at [facility]. Pt asked that I contact [facility], so I have Contacted Jenny at [facility] who had agreed to take the Pt, but will have to get Auth again. Updates sent to [facility] and [facility]. Jenny will contact CM tomorrow. CM available for needs. PLAN: SNF Date Signed: 08/10/2018 04:49 PM Electronically Signed By:Di Barajas
[2018-08-10] MEDS: GABAPENTIN 300 MG CAP PO SCH (20:05)
[2018-08-10] MEDS: POTASSIUM Cl (KCl) 100 ML IV SCH ×2 (20:05→21:11)
[2018-08-11] MEDS: LOPERAMIDE HCL 2 MG CAP PO SCH ×4 (05:12→21:42)
[2018-08-11] MEDS: NS W/ 20 KCl/L 1,000 ML IV SCH (05:19)
--- NOTE | 2018-08-11 08:16 | WOCRNPDOC ---
WOCRN Advanced Assessment Note - Skin Integrity Problem, Advanced Assess Sacrum Pressure Injury Dressing Type: Mepilex Border Dressing Description: Clean/Dry, Intact Site Measurement - Head-to-Toe Length X Width X Depth (cm): 6x4x0 Pressure Injury Stage: Deep Tissue Injury (DTI) Pressure Injury Present on Admit: No Skin Integrity Problem Comment: Skin intact at this time. There is a DTI on the left and one to the right of the coccyx, both were measured together to get 6x4. The area in the middle is red non blanching. Discussed pressure injury prevention, findings and treatement with patient. All questions answered. Wound care will follow. Report to Saloni BRISENO.
[2018-08-11] MEDS: methylPREDNISolone SOD SUCC 40 MG/ML VIAL IVP SCH ×2 (09:23→22:14)
[2018-08-11] MEDS: DRONABINOL 2.5 MG CAP PO SCH ×2 (09:23→21:42)
[2018-08-11] MEDS: OXYBUTYNIN 5 MG EXT REL TAB PO SCH (09:24)
--- NOTE | 2018-08-11 11:38 | SOAPPROG ---
SOAP Progress Note Assessment/Plan: Assessment: 1. Diarrhea secondary to cardenas-colitis without improvement with first dose of Solumedrol. 2. Advanced pancreatitc Ca with chronic biliary stent. Plan: 1. Increase Solumedrol to 40 mg IV Q12 HRS. 2. VIRGEN. 08/11/18 11:38 Subjective: CC: Diarrhea. Interval HPI: Patient with continued watery diarrhea without change in spite of first dose of IV solumedrol. No nausea, asking to advance diet. Objective: Vital Signs Temp Pulse Resp BP Pulse Ox 36.4 C 77 12 95/66 L 98 08/11/18 08:00 08/11/18 08:00 08/11/18 08:00 08/11/18 08:00 08/11/18 08:00 Microbiology 08/08/18 10:16 Gram Stain - Final Peritoneal Fluid - Aspirate Laboratory Results 08/10/18 04:40 08/11/18 05:15 08/10/18 08/11/18 08/12/18 05:59 05:59 05:59 Intake Total 3200 Output Total 400 205 Balance -400 2995 Physical Exam - Physical Exam General Appearance: alert, mild distress Respiratory: lungs clear, normal breath sounds Cardiac/Chest: regular rate, rhythm Abdomen: normal bowel sounds, non-tender, soft, distended Skin: normal color, warm/dry Neuro/Psych: alert, normal mood/affect, oriented x 3 ICD10 Worksheet Patient Problems: Problems Problem Status Onset History of pancreatic cancer Acute
--- NOTE | 2018-08-11 11:58 | ASMTCMCOM ---
CM Note CM Note Notes: Patient plan of care reviewed in am rounds. 63 year old female with pancreatic cancer, day 4 inpatient status. Will remove barrera catheter today and advance diet. Spoke with patient and family regarding [facility] and out of network insurance requiring 40 % copayment for stay. [facility] resubmitting for authorization today. CM to follow for needs. plan: Likely to [facility] when medically cleared for discharge. Date Signed: 08/11/2018 11:57 AM Electronically Signed By:Mare Soliman RN
[2018-08-11] MEDS ORDERED: MAGNESIUM SULF 2 GM/WATER 50 ML IV ONE (12:13)
[2018-08-11] MEDS ORDERED: POTASSIUM CL 10 MEQ TAB PO ONE ×2 (12:13→21:11)
--- NOTE | 2018-08-11 12:20 | SOAPPROG ---
SOAP Progress Note Assessment/Plan: Assessment: 1. pancreatic cancer, scan shows increasing ascites, left pleural effusion, possibly subtle increase mass pancreatic head 2. failure to thrive 3. renal failure 4. ascites, 2500 ml para yesterday 5. left pleural effusion 6. Diarrhea, severe. Colonoscopy shows an acute colitis, biopsies are pending 7.Malnutrition Plan:Continue Solumedrol.Diarrhea may be marginally better. Cytology pending on ascitic fluid. Advance diet 08/08/18 10:16 08/09/18 11:37 08/10/18 12:16 08/11/18 12:17 08/11/18 12:18 Subjective: Appetite better Objective: Vital Signs Temp Pulse Resp BP Pulse Ox 97.5 F 77 12 95/66 L 98 08/11/18 08:00 08/11/18 08:00 08/11/18 08:00 08/11/18 08:00 08/11/18 08:00 Microbiology 08/08/18 10:16 Gram Stain - Final Peritoneal Fluid - Aspirate Laboratory Results 08/11/18 11:30 08/10/18 08/11/18 08/12/18 05:59 05:59 05:59 Intake Total 3200 Output Total 400 205 Balance -400 2995 ICD10 Worksheet Patient Problems: Problems Problem Status Onset History of pancreatic cancer Acute
[2018-08-11 12:52] LABS: PLATELET COUNT 174 10^3/uL (150-400)
[2018-08-11] MEDS: CHOLESTYRAMINE/SUCROSE 4 GM PKT PO SCH (15:06)
--- NOTE | 2018-08-11 16:54 | HOSPPROG ---
Hospitalist Progress Note Assessment/Plan: The patient is a 63-year-old female with PMH localized invasive pancreatic cancer who was admitted for diarrhea, dehydration, gen weakness, FTT. Colitis, immune mediated -pt w/ diarrhea/colitis since hospitalization in May for cholecystectomy -GI path panel negative. 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 Cr is still bumped but will do a trial off IVF given hydration status is better. . NAGMA and Dehydration, 2/2 diarrhea, resolved Hyponatremia, hypovolemic/hypotonic improved - 2/2 diarrhea/VINITA Pancreatic cancer, s/p CBD metal stent for malignant stricture, unresectable pancreatic cancer Ascites L pleural effusion Hepatic steatosis H/o recent cholecystectomy Gen Weakness, 2/2 above -PT/OT. New Sacra Pressure Injury Hypomagnesemia, replacing SPCMN VTE prophylaxis: Lovenox. Code Status: DNR Status: Inpatient for > 2 midnight stay. Disposition: Med surg Plan: cont with steroids no IVF today overall improving, can hopefully d/c soon Dietary consult Subjective: no cp or sob. no n/v. feels better overall. Still with diarrhea Objective: Vital Signs Temp Pulse Resp BP Pulse Ox 36.3 C 72 20 108/73 96 08/11/18 15:32 08/11/18 15:32 08/11/18 15:32 08/11/18 15:32 08/11/18 15:32 Microbiology 08/08/18 10:16 Gram Stain - Final Peritoneal Fluid - Aspirate Laboratory Results 08/11/18 11:30 08/11/18 11:30 08/10/18 08/11/18 08/12/18 05:59 05:59 05:59 Intake Total 3200 Output Total 400 205 400 Balance -400 2995 -400 - Physical Exam Constitutional: no apparent distress Eyes: PERRL Ears, Nose, Mouth, Throat: moist mucous membranes, hearing normal, ears appear normal Cardiovascular: regular rate and rhythym Respiratory: no respiratory distress, no rales or rhonchi Gastrointestinal: normoactive bowel sounds, soft, non-tender abdomen Skin: warm Neurologic: AAOx3 Psychiatric: interacting appropriately, not anxious, not encephalopathic Lymph, Heme, Immunologic: No petechiae ICD10 Worksheet Patient Problems: Problems Problem Status Onset History of pancreatic cancer Acute
[2018-08-11] MEDS: GABAPENTIN 300 MG CAP PO SCH (21:42)
[2018-08-12] MEDS: LOPERAMIDE HCL 2 MG CAP PO PRN (02:07)
[2018-08-12] MEDS: ONDANSETRON DISINTEGRATING 4 MG TAB PO PRN ×3 (05:58→15:33)
[2018-08-12] MEDS: LOPERAMIDE HCL 2 MG CAP PO SCH ×4 (05:58→20:25)
[2018-08-12] MEDS ORDERED: MAGNESIUM SULF 1 GM/DEXTROSE 100 ML IV ONE (08:21)
[2018-08-12] MEDS ORDERED: POTASSIUM CL 10 MEQ TAB PO ONE (08:21)
--- NOTE | 2018-08-12 08:49 | SOAPPROG ---
SOAP Progress Note Assessment/Plan: Assessment: SOAP Progress Note Assessment/Plan: Assessment: 1. pancreatic cancer, scan shows increasing ascites, left pleural effusion, possibly subtle increase mass pancreatic head 2. failure to thrive 3. renal failure 4. ascites, 2500 ml para -cytology negative 5. left pleural effusion 6. Diarrhea, severe. Colonoscopy shows an acute colitis, biopsy with 'acute, mild colitis', ? autoimmune- 7. Malnutrition 8. N/V-? GERD since starting steroids Plan:Continue Solumedrol.Diarrhea may be marginally better on steroids. Cytology negative on ascitic fluid. Advance diet as tolerated. Antacid per GI. will likely need SNF. Subjective: some increase in nausea and vomiting overnight. Diarrhea might be a bit better. Objective: Vital Signs Temp Pulse Resp BP Pulse Ox 36.4 C 68 15 106/69 96 08/12/18 08:00 08/12/18 08:00 08/12/18 08:00 08/12/18 08:00 08/12/18 08:00 Microbiology 08/08/18 10:16 Gram Stain - Final Peritoneal Fluid - Aspirate Laboratory Results 08/11/18 11:30 08/12/18 06:05 08/11/18 08/12/18 08/13/18 05:59 05:59 05:59 Intake Total 3200 200 Output Total 205 2525 Balance 2995 -2325 Physical Exam - Physical Exam General Appearance: alert Respiratory: lungs clear (anteriorly, but with decreased breath sounds) Abdomen: soft, other (slightly distended, ascites) Extremities: pedal edema (2+) Neuro/Psych: alert ICD10 Worksheet Patient Problems: Problems Problem Status Onset History of pancreatic cancer Acute
--- NOTE | 2018-08-12 09:09 | SOAPPROG ---
SOAP Progress Note Assessment/Plan: Assessment: 63 year old with metastatic pancreatic cancer. Patient admitted with failure to thrive, diarrhea and weight loss. CT scan with inflammatory changes of the colon. Colonoscopy with inflammation throughout the colon. Biopsies were non- specific. Stool studies negative for enteric pathogens, including C. Diff. Diarrhea may be improving. Reported no diarrhea since 3 AM. Now getting increase reflux symptoms since staring steroids. Etiology of colitis uncertain. Unlikely related to chemo. No prior history of UC. Now with elevated WBC, possibly related to steroids. Plan: Continue on Solumedrol, when switching to PO would switch to 40 mg PO prednisone daily with taper (taper by 5 mg every 7 days until off). Follow WBC Add PPI for reflux symptoms Will follow with you. 08/12/18 09:11 Subjective: CC: Metastatic pancreatic cancer. Diarrhea, colitis. Had a lot of diarrhea last night. None since 3 am. Having increased reflux symptoms and retrosternal burning. Objective: Vital Signs Temp Pulse Resp BP Pulse Ox 36.4 C 68 15 106/69 96 08/12/18 08:00 08/12/18 08:00 08/12/18 08:00 08/12/18 08:00 08/12/18 08:00 Microbiology 08/08/18 10:16 Gram Stain - Final Peritoneal Fluid - Aspirate Laboratory Results 08/11/18 11:30 08/12/18 06:05 08/11/18 08/12/18 08/13/18 05:59 05:59 05:59 Intake Total 3200 200 Output Total 205 2525 Balance 2995 -2325 Generic Name Dose Route Start Last Admin Trade Name Syeda PRN Reason Stop Dose Admin Acetaminophen 650 mg 08/07/18 15:12 Tylenol PO 02/03/19 15:11 Q4HRS PRN Pain, Mild/Fever, Can Take PO Cholestyramine Resin 4 gm 08/09/18 13:15 08/11/18 15:06 Questran PO 02/05/19 13:14 4 gm DAILY@1300 [place] Administration Dronabinol 2.5 mg 08/08/18 21:00 08/11/18 21:42 Marinol PO 08/18/18 20:59 2.5 mg BID [place] Administration Gabapentin 600 mg 08/07/18 21:00 08/11/18 21:42 Neurontin PO 02/03/19 20:59 600 mg HS [place] Administration Potassium Chloride/Sodium Chloride 1,000 mls @ 100 mls/hr 08/10/18 09:30 05:19 Ns W/ 20 Kcl/L IV 02/06/19 09:29 1,000 mls CONT [place] Administration Magnesium Sulfate/Dextrose 100 mls @ 100 mls/hr 08/12/18 08:21 Magnesium Sulf 1 Gm (Premix) IV 08/12/18 09:20 ONCE ONE Loperamide HCl 2 mg 08/07/18 16:23 08/12/18 02:07 Imodium PO 02/03/19 16:22 2 mg PRN PRN Administration LOOSE STOOLS Loperamide HCl 2 mg 08/09/18 17:00 08/12/18 05:58 Imodium PO 02/05/19 16:59 2 mg 0600,1200,1700,2100 [place] Administration Magnesium Sulfate 1 dose 08/10/18 12:11 Protocol Magnesium IV 02/06/19 12:10 AD PRN Pt on Electrolyte Protocol Protocol Methylprednisolone Sodium Succinate 40 mg 08/11/18 21:00 08/11/18 22:14 Solu-Medrol IVP 02/07/19 20:59 40 mg Q12HRS [place] Administration Montelukast Sodium 10 mg 08/07/18 16:20 Singulair PO 02/03/19 16:19 DAILY PRN allergies, take with Claritin Ondansetron HCl 4 mg 08/07/18 15:12 Zofran IVP 02/03/19 15:11 Q4HRS PRN Nausea/Vomiting, Can't Take PO Ondansetron HCl 4 mg 08/07/18 15:12 08/12/18 05:58 Zofran Odt PO 02/03/19 15:11 4 mg Q4HRS PRN Administration Nausea/Vomiting, Use 1st Oxybutynin Chloride 10 mg 08/08/18 09:00 08/11/18 09:24 Ditropan Xl PO 02/04/19 08:59 10 mg DAILY [place] Administration Potassium Chloride 1 dose 08/10/18 12:11 Protocol Potassium MISC 02/06/19 12:10 AD PRN Pt on Electrolyte Protocol Protocol Discontinued Medications Generic Name Dose Route Start Last Admin Trade Name Freq PRN Reason Stop Dose Admin Cholestyramine Resin 4 gm 08/09/18 11:45 08/09/18 13:14 Questran PO 02/05/19 11:44 4 gm DAILY [place] Administration Ephedrine Sulfate 10 mg 08/10/18 11:40 Ephedrine Sulfate IV 08/10/18 12:41 .Q5M PRN PACU, Hypotension Fentanyl 25 - 100 mcg 08/10/18 11:40 Sublimaze IVP 08/10/18 12:40 Q5M PRN PACU, IMMEDIATE Pain control Sodium Chloride 1,000 mls @ 100 mls/hr 08/07/18 16:30 08/09/18 18:24 Ns IV 08/09/18 02:29 1,000 mls CONT [place] Administration Potassium Chloride/Sodium Chloride 1,000 mls @ 125 mls/hr 08/09/18 16:45 18:00 Ns W/ 20 Kcl/L IV 08/10/18 00:44 1,000 mls CONT [place] Administration Lactated Ringer's 1,000 mls @ 0 mls/hr 08/10/18 10:29 08/10/18 14:59 Lr IV 08/10/18 10:30 Not Given ONCE ONE As Directed Lactated Ringer's 500 mls @ 0 mls/hr 08/10/18 11:40 Lr IV 08/10/18 12:40 PRN PRN PACU, Nausea/Vomiting Post-Op Wide Open Potassium Chloride 100 mls @ 50 mls/hr 08/10/18 20:00 08/10/18 21:11 Potassium Cl 20 Meq (Premix) IV 08/10/18 23:59 100 mls Q2H [place] Administration Magnesium Sulfate 50 mls @ 50 mls/hr 08/11/18 12:13 08/11/18 13:20 Magnesium Sulf 2 Gm (Premix) IV 08/11/18 13:12 50 mls ONCE ONE Administration Lidocaine HCl Confirm 08/08/18 14:05 Lidocaine Hcl 1% Administered 08/08/18 14:06 Dose 300 mg .ROUTE .STK-MED ONE Loperamide HCl 2 mg 08/09/18 12:00 08/09/18 12:52 Imodium PO 02/05/19 11:59 Not Given QID [place] Methylprednisolone Sodium Succinate 40 mg 08/10/18 11:47 08/11/18 09:23 Solu-Medrol IVP 02/06/19 11:46 40 mg DAILY [place] Administration Mirtazapine 7.5 mg 08/07/18 21:00 08/07/18 20:38 Remeron PO 02/03/19 20:59 7.5 mg HS [place] Administration Naloxone HCl 0.1 mg 08/10/18 11:40 Narcan IVP 08/10/18 12:40 Q2M PRN PACU Resp Rate <10/min Ondansetron HCl 2 - 4 mg 08/10/18 11:40 Zofran IVP 08/10/18 12:40 Q10M PRN PACU, Nausea/Vomiting Phenylephrine HCl 100 mcg 08/10/18 11:40 Neosynephrine IVP 08/10/18 12:41 .Q2M PRN PACU, Hypotension Polyethylene Glycol/Electrolytes 4,000 ml 08/09/18 15:33 08/09/18 16:18 Gavilyte - G PO 08/09/18 15:34 4,000 ml ONCE ONE Administration Potassium Chloride 10 - 40 meq 08/11/18 12:13 08/11/18 13:21 Klor-Con PO 08/11/18 12:14 10 meq ONCE ONE Administration Protocol Potassium Chloride 20 meq 08/11/18 21:11 08/11/18 21:41 Klor-Con PO 08/11/18 21:12 20 meq ONCE ONE Administration Protocol Potassium Chloride 10 - 40 meq 08/12/18 08:21 Klor-Con PO 08/12/18 08:22 ONCE ONE Protocol Propofol Confirm 08/10/18 11:02 Diprivan 10 Mg/Ml (Premix) Administered 08/10/18 11:03 Dose 500 mg IV .[facility] ONE Physical Exam - Physical Exam General Appearance: alert, no apparent distress, cachetic, thin Respiratory: lungs clear, normal breath sounds Cardiac/Chest: regular rate, rhythm Abdomen: non-tender, soft Skin: normal color, warm/dry Neuro/Psych: alert, normal mood/affect, oriented x 3 ICD10 Worksheet Patient Problems: Problems Problem Status Onset History of pancreatic cancer Acute
[2018-08-12] MEDS: OXYBUTYNIN 5 MG EXT REL TAB PO SCH (09:35)
[2018-08-12] MEDS: DRONABINOL 2.5 MG CAP PO SCH ×2 (09:35→20:24)
[2018-08-12] MEDS: methylPREDNISolone SOD SUCC 40 MG/ML VIAL IVP SCH ×2 (09:35→20:24)
[2018-08-12] MEDS: PANTOPRAZOLE SODIUM 40 MG TAB PO SCH ×2 (09:58→20:24)
[2018-08-12] MEDS: CHOLESTYRAMINE/SUCROSE 4 GM PKT PO SCH (14:43)
--- NOTE | 2018-08-12 15:15 | HOSPPROG ---
Hospitalist Progress Note Assessment/Plan: The patient is a 63-year-old female with PMH localized invasive pancreatic cancer who was admitted for diarrhea, dehydration, gen weakness, FTT. Colitis, immune mediated -pt w/ diarrhea/colitis since hospitalization in May for cholecystectomy -GI path panel negative. 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 Hydration status has improved. Looks like her baseline may be a little elevated. Cont to hold IVF today NAGMA and Dehydration, 2/2 diarrhea -persists -will repeat labs in a.m. Hyponatremia, hypovolemic/hypotonic resolved - 2/2 diarrhea/VINITA Pancreatic cancer, s/p CBD metal stent for malignant stricture, unresectable pancreatic cancer Ascites L pleural effusion Hepatic steatosis H/o recent cholecystectomy Gen Weakness, 2/2 above -PT/OT. New Sacra Pressure Injury Hypomagnesemia, replacing SPCMN Urinary retention: barrera was discontinued on 08/11 VTE prophylaxis: Lovenox. Code Status: DNR Status: Inpatient for > 2 midnight stay. Disposition: Med surg. will need a SNF Subjective: still with diarrhea but improving. no abd pain. tolerating po. feels weak Objective: Vital Signs Temp Pulse Resp BP Pulse Ox 36.4 C 65 16 114/72 97 08/12/18 11:40 08/12/18 11:40 08/12/18 11:40 08/12/18 11:40 08/12/18 11:40 Microbiology 08/08/18 10:16 Gram Stain - Final Peritoneal Fluid - Aspirate Laboratory Results 08/11/18 11:30 08/12/18 06:05 08/11/18 08/12/18 08/13/18 05:59 05:59 05:59 Intake Total 3200 200 350 Output Total 205 2525 Balance 2995 -2325 350 - Physical Exam Constitutional: no apparent distress, chronically ill appearing Eyes: PERRL, EOMI Ears, Nose, Mouth, Throat: moist mucous membranes Cardiovascular: regular rate and rhythym Respiratory: no respiratory distress, no rales or rhonchi, clear to auscultation Gastrointestinal: normoactive bowel sounds, soft, non-tender abdomen Skin: warm Neurologic: AAOx3 Psychiatric: interacting appropriately, not anxious, not encephalopathic Lymph, Heme, Immunologic: No petechiae ICD10 Worksheet Patient Problems: Problems Problem Status Onset History of pancreatic cancer Acute
[2018-08-12] MEDS ORDERED: NS 1,000 ML IV SCH (18:00)
[2018-08-12] MEDS: GABAPENTIN 300 MG CAP PO SCH (20:23)
[2018-08-12] MEDS ORDERED: PANTOPRAZOLE SODIUM 40 MG TAB PO SCH (21:00)
[2018-08-13] MEDS: LOPERAMIDE HCL 2 MG CAP PO SCH ×4 (05:55→21:45)
[2018-08-13] MEDS ORDERED: POTASSIUM CL 10 MEQ TAB PO ONE (08:03)
[2018-08-13] MEDS ORDERED: MAGNESIUM SULF 1 GM/DEXTROSE 100 ML IV ONE (08:03)
[2018-08-13] MEDS: methylPREDNISolone SOD SUCC 40 MG/ML VIAL IVP SCH (09:56)
[2018-08-13] MEDS: PANTOPRAZOLE SODIUM 40 MG TAB PO SCH ×2 (09:56→21:45)
[2018-08-13] MEDS: OXYBUTYNIN 5 MG EXT REL TAB PO SCH (09:56)
[2018-08-13] MEDS: DRONABINOL 2.5 MG CAP PO SCH ×2 (09:56→21:45)
[2018-08-13] MEDS: ONDANSETRON 4 MG/2 ML VIAL IVP PRN ×2 (10:04→14:42)
--- NOTE | 2018-08-13 12:03 | SOAPPROG ---
SOAP Progress Note Assessment/Plan: Assessment: 63 year old with metastatic pancreatic cancer. Patient admitted with failure to thrive, diarrhea and weight loss. Currently on steroids for colitis. Having less diarrhea. Plan: Discontinue Solumedrol. Start PO Prednisone with taper. days until off). Anti-reflux precautions and continue on PPI 08/13/18 12:06 Subjective: CC: Metastatic pancreatic cancer. Colitis. Diarrhea improved. Having heart burn and nausea with eating. Objective: Vital Signs Temp Pulse Resp BP Pulse Ox 36.4 C 78 16 116/77 96 08/13/18 11:22 08/13/18 11:22 08/13/18 11:22 08/13/18 11:22 08/13/18 11:22 Microbiology 08/08/18 10:16 Gram Stain - Final Peritoneal Fluid - Aspirate Laboratory Results 08/11/18 11:30 08/13/18 06:01 08/12/18 08/13/18 08/14/18 05:59 05:59 05:59 Intake Total 200 1440 690 Output Total 2525 425 Balance -2325 1015 690 Generic Name Dose Route Start Last Admin Trade Name Freq PRN Reason Stop Dose Admin Acetaminophen 650 mg 08/07/18 15:12 Tylenol PO 02/03/19 15:11 Q4HRS PRN Pain, Mild/Fever, Can Take PO Cholestyramine Resin 4 gm 08/09/18 13:15 08/12/18 14:43 Questran PO 02/05/19 13:14 4 gm DAILY@1300 [place] Administration Dronabinol 2.5 mg 08/08/18 21:00 08/13/18 09:56 Marinol PO 08/18/18 20:59 2.5 mg BID [place] Administration Gabapentin 600 mg 08/07/18 21:00 08/12/18 20:23 Neurontin PO 02/03/19 20:59 600 mg HS [place] Administration Potassium Chloride/Sodium Chloride 1,000 mls @ 100 mls/hr 08/10/18 09:30 05:19 Ns W/ 20 Kcl/L IV 02/06/19 09:29 1,000 mls CONT [place] Administration Sodium Chloride 1,000 mls @ 125 mls/hr 08/12/18 18:00 08/12/18 20:40 Ns IV 08/14/18 01:59 1,000 mls CONT [place] Administration Loperamide HCl 2 mg 08/07/18 16:23 08/12/18 02:07 Imodium PO 02/03/19 16:22 2 mg PRN PRN Administration LOOSE STOOLS Loperamide HCl 2 mg 08/09/18 17:00 08/13/18 05:55 Imodium PO 02/05/19 16:59 2 mg 0600,1200,1700,2100 [place] Administration Magnesium Sulfate 1 dose 08/10/18 12:11 Protocol Magnesium IV 02/06/19 12:10 AD PRN Pt on Electrolyte Protocol Protocol Methylprednisolone Sodium Succinate 40 mg 08/11/18 21:00 08/13/18 09:56 Solu-Medrol IVP 02/07/19 20:59 40 mg Q12HRS [place] Administration Montelukast Sodium 10 mg 08/07/18 16:20 Singulair PO 02/03/19 16:19 DAILY PRN allergies, take with Claritin Ondansetron HCl 4 mg 08/07/18 15:12 08/13/18 10:04 Zofran IVP 02/03/19 15:11 4 mg Q4HRS PRN Administration Nausea/Vomiting, Can't Take PO Ondansetron HCl 4 mg 08/07/18 15:12 08/12/18 15:33 Zofran Odt PO 02/03/19 15:11 4 mg Q4HRS PRN Administration Nausea/Vomiting, Use 1st Oxybutynin Chloride 10 mg 08/08/18 09:00 08/13/18 09:56 Ditropan Xl PO 02/04/19 08:59 10 mg DAILY [place] Administration Pantoprazole Sodium 40 mg 08/12/18 09:45 08/13/18 09:56 Protonix PO 02/08/19 09:44 40 mg BID [place] Administration Potassium Chloride 1 dose 08/10/18 12:11 Protocol Potassium MISC 02/06/19 12:10 AD PRN Pt on Electrolyte Protocol Protocol Discontinued Medications Generic Name Dose Route Start Last Admin Trade Name Freq PRN Reason Stop Dose Admin Cholestyramine Resin 4 gm 08/09/18 11:45 08/09/18 13:14 Questran PO 02/05/19 11:44 4 gm DAILY [place] Administration Ephedrine Sulfate 10 mg 08/10/18 11:40 Ephedrine Sulfate IV 08/10/18 12:41 .Q5M PRN PACU, Hypotension Fentanyl 25 - 100 mcg 08/10/18 11:40 Sublimaze IVP 08/10/18 12:40 Q5M PRN PACU, IMMEDIATE Pain control Sodium Chloride 1,000 mls @ 100 mls/hr 08/07/18 16:30 08/09/18 18:24 Ns IV 08/09/18 02:29 1,000 mls CONT [place] Administration Potassium Chloride/Sodium Chloride 1,000 mls @ 125 mls/hr 08/09/18 16:45 18:00 Ns W/ 20 Kcl/L IV 08/10/18 00:44 1,000 mls CONT [place] Administration Lactated Ringer's 1,000 mls @ 0 mls/hr 08/10/18 10:29 08/10/18 14:59 Lr IV 08/10/18 10:30 Not Given ONCE ONE As Directed Lactated Ringer's 500 mls @ 0 mls/hr 08/10/18 11:40 Lr IV 08/10/18 12:40 PRN PRN PACU, Nausea/Vomiting Post-Op Wide Open Potassium Chloride 100 mls @ 50 mls/hr 08/10/18 20:00 08/10/18 21:11 Potassium Cl 20 Meq (Premix) IV 08/10/18 23:59 100 mls Q2H [place] Administration Magnesium Sulfate 50 mls @ 50 mls/hr 08/11/18 12:13 08/11/18 13:20 Magnesium Sulf 2 Gm (Premix) IV 08/11/18 13:12 50 mls ONCE ONE Administration Magnesium Sulfate/Dextrose 100 mls @ 100 mls/hr 08/12/18 08:21 08/12/18 09:34 Magnesium Sulf 1 Gm (Premix) IV 08/12/18 09:20 100 mls ONCE ONE Administration Magnesium Sulfate/Dextrose 100 mls @ 100 mls/hr 08/13/18 08:03 08/13/18 09:56 Magnesium Sulf 1 Gm (Premix) IV 08/13/18 09:02 100 mls ONCE ONE Administration Lidocaine HCl Confirm 08/08/18 14:05 Lidocaine Hcl 1% Administered 08/08/18 14:06 Dose 300 mg .ROUTE .STK-MED ONE Loperamide HCl 2 mg 08/09/18 12:00 08/09/18 12:52 Imodium PO 02/05/19 11:59 Not Given QID [facility] Methylprednisolone Sodium Succinate 40 mg 08/10/18 11:47 08/11/18 09:23 Solu-Medrol IVP 02/06/19 11:46 40 mg DAILY [place] Administration Mirtazapine 7.5 mg 08/07/18 21:00 08/07/18 20:38 Remeron PO 02/03/19 20:59 7.5 mg HS [place] Administration Naloxone HCl 0.1 mg 08/10/18 11:40 Narcan IVP 08/10/18 12:40 Q2M PRN PACU Resp Rate <10/min Ondansetron HCl 2 - 4 mg 08/10/18 11:40 Zofran IVP 08/10/18 12:40 Q10M PRN PACU, Nausea/Vomiting Pantoprazole Sodium 40 mg 08/12/18 21:00 Protonix PO 02/08/19 20:59 BID [facility] Phenylephrine HCl 100 mcg 08/10/18 11:40 Neosynephrine IVP 08/10/18 12:41 .Q2M PRN PACU, Hypotension Polyethylene Glycol/Electrolytes 4,000 ml 08/09/18 15:33 08/09/18 16:18 Gavilyte - G PO 08/09/18 15:34 4,000 ml ONCE ONE Administration Potassium Chloride 10 - 40 meq 08/11/18 12:13 08/11/18 13:21 Klor-Con PO 08/11/18 12:14 10 meq ONCE ONE Administration Protocol Potassium Chloride 20 meq 08/11/18 21:11 08/11/18 21:41 Klor-Con PO 08/11/18 21:12 20 meq ONCE ONE Administration Protocol Potassium Chloride 10 - 40 meq 08/12/18 08:21 08/12/18 09:35 Klor-Con PO 08/12/18 08:22 20 meq ONCE ONE Administration Protocol Potassium Chloride 10 - 40 meq 08/13/18 08:03 08/13/18 09:56 Klor-Con PO 08/13/18 08:04 10 meq ONCE ONE Administration Protocol Propofol Confirm 08/10/18 11:02 Diprivan 10 Mg/Ml (Premix) Administered 08/10/18 11:03 Dose 500 mg IV .STK-MED ONE Physical Exam - Physical Exam General Appearance: alert, no apparent distress Respiratory: lungs clear, normal breath sounds Cardiac/Chest: regular rate, rhythm Abdomen: non-tender, soft Skin: normal color, warm/dry Neuro/Psych: alert, normal mood/affect, oriented x 3 ICD10 Worksheet Patient Problems: Problems Problem Status Onset History of pancreatic cancer Acute
--- NOTE | 2018-08-13 12:32 | HOSPPROG ---
Hospitalist Progress Note Assessment/Plan: The patient is a 63-year-old female with PMH localized invasive pancreatic cancer who was admitted for diarrhea, dehydration, gen weakness, FTT. Colitis, immune mediated -pt w/ diarrhea/colitis since hospitalization in May for cholecystectomy -GI path panel negative. 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 -Hydration status has improved. - Looks like her baseline may be a little elevated. - IVF PRN today NAGMA and Dehydration, 2/2 diarrhea -persists but improved bicarb 14->16 this AM -Continue to monitor BMP Hyponatremia, hypovolemic/hypotonic resolved - 2/2 diarrhea/VINITA Pancreatic cancer, s/p CBD metal stent for malignant stricture, unresectable pancreatic cancer Ascites L pleural effusion Hepatic steatosis H/o recent cholecystectomy Gen Weakness, 2/2 above -PT/OT. New Sacra Pressure Injury Hypomagnesemia, replacing SPCMN Urinary retention: barrera was discontinued on 08/11, replaced on 08/12 VTE prophylaxis: Lovenox. Code Status: DNR Status: Inpatient for > 2 midnight stay. Disposition: Med surg. will need a SNF Subjective: Patient reports 1 episode of diarrhea and 1 episode of emesis overnight Objective: Vital Signs Temp Pulse Resp BP Pulse Ox 36.4 C 78 16 116/77 96 08/13/18 11:22 08/13/18 11:22 08/13/18 11:22 08/13/18 11:22 08/13/18 11:22 Microbiology 08/08/18 10:16 Gram Stain - Final Peritoneal Fluid - Aspirate Laboratory Results 08/11/18 11:30 08/13/18 06:01 08/12/18 08/13/18 08/14/18 05:59 05:59 05:59 Intake Total 200 1440 690 Output Total 2525 425 Balance -2325 1015 690 - Physical Exam Constitutional: chronically ill appearing Eyes: PERRL Ears, Nose, Mouth, Throat: dry mucous membranes Cardiovascular: regular rate and rhythym Respiratory: no respiratory distress Gastrointestinal: soft, non-tender abdomen Skin: warm Musculoskeletal: generalized weakness Neurologic: AAOx3 Psychiatric: flat affect ICD10 Worksheet Patient Problems: Problems Problem Status Onset History of pancreatic cancer Acute
[2018-08-13] MEDS: PROMETHAZINE HCL 25 MG/ML INJ IVP PRN (13:42)
[2018-08-13] MEDS: CHOLESTYRAMINE/SUCROSE 4 GM PKT PO SCH ×2 (14:44→15:55)
--- NOTE | 2018-08-13 15:01 | SOAPPROG ---
SOAP Progress Note Assessment/Plan: Assessment: SOAP Progress Note Assessment/Plan: Assessment: 1. Pancreatic cancer-recurrent disease with ascites, left pleural effusion, possibly subtle increase mass pancreatic head-s/p two cycles of gem/abraxane 2. Failure to thrive 3. Mild renal insufficiency-creast stable at 1.3. 4. Diarrhea- Colonoscopy suggestive of colitis, biopsy with 'acute, mild colitis ', started empirically on steroids. No clear benefit as of yet. 5. N/V-? GERD, but no improvement on PPI. Plan 1. Continue steroids per GI 2. If vomiting continues, may need further eval with repeat imaging, etc. 3. Generalized weakness, inanition-major symptom. Unclear how much is secondary to disease, ? depression, etc. Will ultimately require SNF. Subjective: vomiting this morning. diarrhea unchanged Objective: Vital Signs Temp Pulse Resp BP Pulse Ox 36.4 C 78 16 116/77 96 08/13/18 11:22 08/13/18 11:22 08/13/18 11:22 08/13/18 11:22 08/13/18 11:22 Microbiology 08/08/18 10:16 Gram Stain - Final Peritoneal Fluid - Aspirate Laboratory Results 08/11/18 11:30 08/13/18 06:01 08/12/18 08/13/18 08/14/18 05:59 05:59 05:59 Intake Total 200 1440 2506 Output Total 2525 425 100 Balance -2325 1015 2406 Physical Exam - Physical Exam General Appearance: no apparent distress Abdomen: soft, ascites Neuro/Psych: other (flat affect) ICD10 Worksheet Patient Problems: Problems Problem Status Onset History of pancreatic cancer Acute
[2018-08-13] MEDS: NS 1,000 ML IV SCH ×2 (15:17→21:56)
[2018-08-13] MEDS ORDERED: ONDANSETRON 4 MG/2 ML VIAL IVP ONE (15:38)
[2018-08-13] MEDS ORDERED: METOCLOPRAMIDE 10 MG/2 ML VIAL IVP ONE (15:39)
[2018-08-13] MEDS: GABAPENTIN 300 MG CAP PO SCH (21:45)
[2018-08-14] MEDS: LOPERAMIDE HCL 2 MG CAP PO SCH (05:59)
--- NOTE | 2018-08-14 08:46 | SOAPPROG ---
SOAP Progress Note Assessment/Plan: Assessment: 63 year old with metastatic pancreatic cancer. Patient admitted with failure to thrive, diarrhea and weight loss. No further diarrhea on Prednisone. Heartburn and reflux improved on PPI. Episodes of emesis with movement. Suggesting a central cause or inner ear cause for her nausea and episodes of vomiting. Plan: 1. Prednisone with taper as previously recommended 2. Continue on PPI 08/14/18 08:41 Subjective: CC: Failure to thrive, colitis. No further diarrhea, responding to diarrhea. Having episodes of emesis associated with movement. No reflux or heartburn symptoms since starting PPI Objective: Vital Signs Temp Pulse Resp BP Pulse Ox 36.3 C 88 16 106/74 95 08/14/18 08:00 08/14/18 08:00 08/14/18 08:00 08/14/18 08:00 08/14/18 08:00 Laboratory Results 08/14/18 06:10 08/14/18 06:10 08/13/18 08/14/18 08/15/18 05:59 05:59 05:59 Intake Total 1440 3601 825 Output Total 425 350 75 Balance 1015 3251 750 Generic Name Dose Route Start Last Admin Trade Name Freq PRN Reason Stop Dose Admin Acetaminophen 650 mg 08/07/18 15:12 Tylenol PO 02/03/19 15:11 Q4HRS PRN Pain, Mild/Fever, Can Take PO Cholestyramine Resin 4 gm 08/09/18 13:15 08/13/18 15:55 Questran PO 02/05/19 13:14 Not Given DAILY@1300 [place] Dronabinol 2.5 mg 08/08/18 21:00 08/13/18 21:45 Marinol PO 08/18/18 20:59 2.5 mg BID [place] Administration Gabapentin 600 mg 08/07/18 21:00 08/13/18 21:45 Neurontin PO 02/03/19 20:59 600 mg HS [place] Administration Potassium Chloride/Sodium Chloride 1,000 mls @ 100 mls/hr 08/10/18 09:30 05:19 Ns W/ 20 Kcl/L IV 02/06/19 09:29 1,000 mls CONT [place] Administration Loperamide HCl 2 mg 08/07/18 16:23 08/12/18 02:07 Imodium PO 02/03/19 16:22 2 mg PRN PRN Administration LOOSE STOOLS Loperamide HCl 2 mg 08/09/18 17:00 08/14/18 05:59 Imodium PO 02/05/19 16:59 2 mg 0600,1200,1700,2100 [place] Administration Magnesium Sulfate 1 dose 08/10/18 12:11 Protocol Magnesium IV 02/06/19 12:10 AD PRN Pt on Electrolyte Protocol Protocol Montelukast Sodium 10 mg 08/07/18 16:20 Singulair PO 02/03/19 16:19 DAILY PRN allergies, take with Claritin Ondansetron HCl 4 mg 08/07/18 15:12 08/13/18 14:42 Zofran IVP 02/03/19 15:11 4 mg Q4HRS PRN Administration Nausea/Vomiting, Can't Take PO Ondansetron HCl 4 mg 08/07/18 15:12 08/12/18 15:33 Zofran Odt PO 02/03/19 15:11 4 mg Q4HRS PRN Administration Nausea/Vomiting, Use 1st Oxybutynin Chloride 10 mg 08/08/18 09:00 08/13/18 09:56 Ditropan Xl PO 02/04/19 08:59 10 mg DAILY [place] Administration Pantoprazole Sodium 40 mg 08/12/18 09:45 08/13/18 21:45 Protonix PO 02/08/19 09:44 40 mg BID [place] Administration Potassium Chloride 1 dose 08/10/18 12:11 Protocol Potassium MISC 02/06/19 12:10 AD PRN Pt on Electrolyte Protocol Protocol Prednisone 40 mg 08/14/18 09:00 Prednisone PO 08/20/18 09:01 DAILY [place] Prednisone 35 mg 08/21/18 09:00 Prednisone PO 08/27/18 09:01 DAILY [place] Prednisone 30 mg 08/28/18 09:00 Prednisone PO 09/03/18 09:01 DAILY [place] Prednisone 25 mg 09/04/18 09:00 Prednisone PO 09/10/18 09:01 DAILY [place] Prednisone 20 mg 09/11/18 09:00 Prednisone PO 09/17/18 09:01 DAILY [place] Prednisone 15 mg 09/18/18 09:00 Prednisone PO 09/24/18 09:01 DAILY [place] Prednisone 10 mg 09/25/18 09:00 Prednisone PO 10/01/18 09:01 DAILY [place] Prednisone 5 mg 10/02/18 09:00 Prednisone PO 10/08/18 09:01 DAILY [place] Promethazine HCl 12.5 mg 08/13/18 13:12 08/13/18 13:42 Phenergan IVP 02/09/19 13:11 12.5 mg Q6HRS PRN Administration Nausea/Vomiting, Can't Take PO Discontinued Medications Generic Name Dose Route Start Last Admin Trade Name Syeda PRN Reason Stop Dose Admin Cholestyramine Resin 4 gm 08/09/18 11:45 08/09/18 13:14 Questran PO 02/05/19 11:44 4 gm DAILY [place] Administration Ephedrine Sulfate 10 mg 08/10/18 11:40 Ephedrine Sulfate IV 08/10/18 12:41 .Q5M PRN PACU, Hypotension Fentanyl 25 - 100 mcg 08/10/18 11:40 Sublimaze IVP 08/10/18 12:40 Q5M PRN PACU, IMMEDIATE Pain control Sodium Chloride 1,000 mls @ 100 mls/hr 08/07/18 16:30 08/09/18 18:24 Ns IV 08/09/18 02:29 1,000 mls CONT [place] Administration Potassium Chloride/Sodium Chloride 1,000 mls @ 125 mls/hr 08/09/18 16:45 18:00 Ns W/ 20 Kcl/L IV 08/10/18 00:44 1,000 mls CONT [place] Administration Lactated Ringer's 1,000 mls @ 0 mls/hr 08/10/18 10:29 08/10/18 14:59 Lr IV 08/10/18 10:30 Not Given ONCE ONE As Directed Lactated Ringer's 500 mls @ 0 mls/hr 08/10/18 11:40 Lr IV 08/10/18 12:40 PRN PRN PACU, Nausea/Vomiting Post-Op Wide Open Potassium Chloride 100 mls @ 50 mls/hr 08/10/18 20:00 08/10/18 21:11 Potassium Cl 20 Meq (Premix) IV 08/10/18 23:59 100 mls Q2H [place] Administration Magnesium Sulfate 50 mls @ 50 mls/hr 08/11/18 12:13 08/11/18 13:20 Magnesium Sulf 2 Gm (Premix) IV 08/11/18 13:12 50 mls ONCE ONE Administration Magnesium Sulfate/Dextrose 100 mls @ 100 mls/hr 08/12/18 08:21 08/12/18 09:34 Magnesium Sulf 1 Gm (Premix) IV 08/12/18 09:20 100 mls ONCE ONE Administration Sodium Chloride 1,000 mls @ 125 mls/hr 08/12/18 18:00 08/12/18 20:40 Ns IV 08/14/18 01:59 1,000 mls CONT [place] Administration Magnesium Sulfate/Dextrose 100 mls @ 100 mls/hr 08/13/18 08:03 08/13/18 09:56 Magnesium Sulf 1 Gm (Premix) IV 08/13/18 09:02 100 mls ONCE ONE Administration Sodium Chloride 1,000 mls @ 75 mls/hr 08/13/18 13:15 08/13/18 21:56 Ns IV 08/14/18 01:14 1,000 mls CONT [place] Administration Lidocaine HCl Confirm 08/08/18 14:05 Lidocaine Hcl 1% Administered 08/08/18 14:06 Dose 300 mg .ROUTE .STK-MED ONE Loperamide HCl 2 mg 08/09/18 12:00 08/09/18 12:52 Imodium PO 02/05/19 11:59 Not Given QID [place] Methylprednisolone Sodium Succinate 40 mg 08/10/18 11:47 08/11/18 09:23 Solu-Medrol IVP 02/06/19 11:46 40 mg DAILY [place] Administration Methylprednisolone Sodium Succinate 40 mg 08/11/18 21:00 08/13/18 09:56 Solu-Medrol IVP 02/07/19 20:59 40 mg Q12HRS [place] Administration Metoclopramide HCl 10 mg 08/13/18 15:39 08/13/18 17:11 Reglan Injection IVP 08/13/18 15:40 10 mg ONCE ONE Administration Mirtazapine 7.5 mg 08/07/18 21:00 08/07/18 20:38 Remeron PO 02/03/19 20:59 7.5 mg HS [place] Administration Naloxone HCl 0.1 mg 08/10/18 11:40 Narcan IVP 08/10/18 12:40 Q2M PRN PACU Resp Rate <10/min Ondansetron HCl 2 - 4 mg 08/10/18 11:40 Zofran IVP 08/10/18 12:40 Q10M PRN PACU, Nausea/Vomiting Ondansetron HCl 8 mg 08/13/18 15:38 08/13/18 15:52 Zofran IVP 08/13/18 15:39 8 mg ONCE ONE Administration Pantoprazole Sodium 40 mg 08/12/18 21:00 Protonix PO 02/08/19 20:59 BID [facility] Phenylephrine HCl 100 mcg 08/10/18 11:40 Neosynephrine IVP 08/10/18 12:41 .Q2M PRN PACU, Hypotension Polyethylene Glycol/Electrolytes 4,000 ml 08/09/18 15:33 08/09/18 16:18 Gavilyte - G PO 08/09/18 15:34 4,000 ml ONCE ONE Administration Potassium Chloride 10 - 40 meq 08/11/18 12:13 08/11/18 13:21 Klor-Con PO 08/11/18 12:14 10 meq ONCE ONE Administration Protocol Potassium Chloride 20 meq 08/11/18 21:11 08/11/18 21:41 Klor-Con PO 08/11/18 21:12 20 meq ONCE ONE Administration Protocol Potassium Chloride 10 - 40 meq 08/12/18 08:21 08/12/18 09:35 Klor-Con PO 08/12/18 08:22 20 meq ONCE ONE Administration Protocol Potassium Chloride 10 - 40 meq 08/13/18 08:03 08/13/18 09:56 Klor-Con PO 08/13/18 08:04 10 meq ONCE ONE Administration Protocol Prednisone 1 each 08/13/18 12:15 Prednisone Taper PO 02/09/19 12:14 .EDIT DOSE INSTRUCT [facility] Propofol Confirm 08/10/18 11:02 Diprivan 10 Mg/Ml (Premix) Administered 08/10/18 11:03 Dose 500 mg IV .STK-MED ONE Physical Exam - Physical Exam General Appearance: alert, cachetic, thin Respiratory: lungs clear, normal breath sounds Cardiac/Chest: regular rate, rhythm Abdomen: normal bowel sounds, non-tender, soft Skin: normal color, warm/dry Neuro/Psych: alert, normal mood/affect, oriented x 3 ICD10 Worksheet Patient Problems: Problems Problem Status Onset History of pancreatic cancer Acute
[2018-08-14] MEDS ORDERED: POTASSIUM CL 10 MEQ TAB PO ONE ×2 (08:48→19:38)
[2018-08-14] MEDS: OXYBUTYNIN 5 MG EXT REL TAB PO SCH (10:43)
[2018-08-14] MEDS: predniSONE 20 MG TAB PO SCH (10:44)
[2018-08-14] MEDS: PANTOPRAZOLE SODIUM 40 MG TAB PO SCH ×2 (10:44→21:10)
[2018-08-14] MEDS: DRONABINOL 2.5 MG CAP PO SCH ×2 (10:45→21:10)
[2018-08-14] MEDS ORDERED: SCOPOLAMINE HYDROBROMIDE 1 MG/3 DAYS PATCH TD SCH (11:15)
--- NOTE | 2018-08-14 12:03 | HOSPPROG ---
Hospitalist Progress Note Assessment/Plan: The patient is a 63-year-old female with PMH localized invasive pancreatic cancer who was admitted for diarrhea, dehydration, gen weakness, FTT. Colitis, immune mediated -pt w/ diarrhea/colitis since hospitalization in May for cholecystectomy -GI path panel negative. 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 -Hydration status has improved. -Looks like her baseline may be a little elevated. -IVF PRN NAGMA and Dehydration, 2/2 diarrhea -persists -Continue to monitor BMP Hyponatremia, hypovolemic/hypotonic resolved - 2/2 diarrhea/VINITA, Na 132 this AM - Continue to monitor Pancreatic cancer, s/p CBD metal stent for malignant stricture, unresectable pancreatic cancer Ascites L pleural effusion Hepatic steatosis H/o recent cholecystectomy Gen Weakness, 2/2 above -PT/OT. New Sacra Pressure Injury Hypomagnesemia, replacing SPCMN Urinary retention: barrera was discontinued on 08/11, replaced on 08/12 VTE prophylaxis: Lovenox. Code Status: DNR Status: Inpatient for > 2 midnight stay. Disposition: Med surg. will need a SNF Subjective: Patient reporting some nausea this AM Objective: Vital Signs Temp Pulse Resp BP Pulse Ox 36.4 C 93 16 114/81 H 94 08/14/18 11:12 08/14/18 11:12 08/14/18 11:12 08/14/18 11:12 08/14/18 11:12 Laboratory Results 08/14/18 06:10 08/14/18 06:10 08/13/18 08/14/18 08/15/18 05:59 05:59 05:59 Intake Total 1440 3601 825 Output Total 425 350 75 Balance 1015 3251 750 - Physical Exam Constitutional: chronically ill appearing Eyes: PERRL Ears, Nose, Mouth, Throat: dry mucous membranes Cardiovascular: regular rate and rhythym Respiratory: no respiratory distress Gastrointestinal: soft, non-tender abdomen, tenderness Genitourinary: no bladder fullness Skin: warm Musculoskeletal: generalized weakness Neurologic: AAOx3 Psychiatric: interacting appropriately ICD10 Worksheet Patient Problems: Problems Problem Status Onset History of pancreatic cancer Acute
--- NOTE | 2018-08-14 13:24 | ASMTCMCOM ---
CM Note CM Note Notes: Plan of care reviewed in am rounds. Patient still very symptomatic with bouts of nausea. Patient followed by [facility] palliative care. Questionable inner ear etiology to nausea. Slow progress. CM to follow. Plan: To SNF rehab when medically cleared for discharge. Date Signed: 08/14/2018 01:17 PM Electronically Signed By:Mare Soliman RN
[2018-08-14] MEDS ORDERED: ALBUMIN 5% 500 ML IV ONE (15:09)
--- NOTE | 2018-08-14 15:16 | SOAPPROG ---
[facility] Progress Note Assessment/Plan: Assessment: 1. Pancreatic cancer-recurrent disease with ascites, left pleural effusion, possibly subtle increase mass pancreatic head-s/p two cycles of gem/abraxane 2. Performance status - currently ECOG 4 3. Mild renal insufficiency-creast stable at 1.3. 4. Diarrhea- Colonoscopy suggestive of colitis, biopsy with 'acute, mild colitis ', started empirically on steroids. No clear benefit as of yet. 5. N/V-? Somewhat better today 6. Malnutrition/anasarca - last albumin 1.5. Will check again. Start calorie count 7. Decreased urinary output - related to intravascular depletion. Will give a trial of IV albumin. If the patient's functional and nutritional status do not improve, she will not be a candidate for any cancer directed therapy. In that case best supportive care/hospice would be most appropriate. We will continue to discuss this over the next day or two. Discussed with Dr. Hernandez. Plan 1. Continue steroids per GI 2. Calorie count 3. Generalized weakness, inanition-major symptom. Unclear how much is secondary to disease, ? depression, etc. Will ultimately require SNF or hospice. 4. IV albumin trial Subjective: No vomiting since this AM. She has not been out of bed today. Objective: Vital Signs Temp Pulse Resp BP Pulse Ox 36.4 C 93 16 114/81 H 94 08/14/18 11:12 08/14/18 11:12 08/14/18 11:12 08/14/18 11:12 08/14/18 11:12 Microbiology 08/08/18 10:16 Gram Stain - Final Peritoneal Fluid - Aspirate Laboratory Results 08/14/18 06:10 08/14/18 06:10 08/12/18 08/13/18 08/14/18 23:59 23:59 23:59 Intake Total 1140 3901 1025 Output Total 425 450 225 Balance 715 3451 800 Physical Exam - Physical Exam General Appearance: moderate distress Respiratory: No normal breath sounds (diminshed breath sounds at the bases) Cardiac/Chest: regular rate, rhythm Abdomen: ascites Extremities: swelling (anasarca) Neuro/Psych: depressed affect ICD10 Worksheet Patient Problems: Problems Problem Status Onset History of pancreatic cancer Acute
[2018-08-14] MEDS: PROMETHAZINE HCL 25 MG/ML INJ IVP PRN (15:21)
[2018-08-14] MEDS: GABAPENTIN 300 MG CAP PO SCH (21:10)
[2018-08-14] MEDS: ONDANSETRON 4 MG/2 ML VIAL IVP PRN (21:17)
[2018-08-15] MEDS: ONDANSETRON 4 MG/2 ML VIAL IVP PRN (09:08)
[2018-08-15] MEDS: DRONABINOL 2.5 MG CAP PO SCH (09:57)
[2018-08-15] MEDS: PANTOPRAZOLE SODIUM 40 MG TAB PO SCH (09:57)
[2018-08-15] MEDS: OXYBUTYNIN 5 MG EXT REL TAB PO SCH (09:59)
[2018-08-15] MEDS: PROMETHAZINE HCL 25 MG/ML INJ IVP PRN (11:54)
[2018-08-15] MEDS: predniSONE 20 MG TAB PO SCH (12:01)
--- NOTE | 2018-08-15 12:44 | SOAPPROG ---
SOAP Progress Note Assessment/Plan: Assessment: 63 year old with metastatic pancreatic cancer. Patient admitted with failure to thrive, diarrhea and weight loss. No further diarrhea. Seems distended on exam. Minimal to no BS. Significant leukocytosis. Unable to eat with vomiting, mucous. on Prednisone. Plan: 1. Repeat CBC today 2. CT Scan or the abdomen and pelvis with IV and oral contrast. Rule out significant intra-abdominal process. 08/15/18 12:41 Subjective: CC: Metastatic pancreatic cancer. Unable to eat or drink, having vomiting. No further BMs Objective: Vital Signs Temp Pulse Resp BP Pulse Ox 36.6 C 103 H 12 113/75 97 08/15/18 11:43 08/15/18 11:43 08/15/18 11:43 08/15/18 11:43 08/15/18 11:43 Microbiology 08/08/18 10:16 Gram Stain - Final Peritoneal Fluid - Aspirate Anaerobic Culture - Final Laboratory Results 08/14/18 06:10 08/15/18 05:25 08/14/18 08/15/18 08/16/18 05:59 05:59 05:59 Intake Total 3601 1575 Output Total 350 1075 Balance 3251 500 Generic Name Dose Route Start Last Admin Trade Name Freq PRN Reason Stop Dose Admin Acetaminophen 650 mg 08/07/18 15:12 Tylenol PO 02/03/19 15:11 Q4HRS PRN Pain, Mild/Fever, Can Take PO Dronabinol 2.5 mg 08/08/18 21:00 08/15/18 09:57 Marinol PO 08/18/18 20:59 2.5 mg BID [place] Administration Gabapentin 600 mg 08/07/18 21:00 08/14/18 21:10 Neurontin PO 02/03/19 20:59 600 mg HS [place] Administration Potassium Chloride/Sodium Chloride 1,000 mls @ 100 mls/hr 08/10/18 09:30 05:19 Ns W/ 20 Kcl/L IV 02/06/19 09:29 1,000 mls CONT [place] Administration Loperamide HCl 2 mg 08/07/18 16:23 08/12/18 02:07 Imodium PO 02/03/19 16:22 2 mg PRN PRN Administration LOOSE STOOLS Magnesium Sulfate 1 dose 08/10/18 12:11 Protocol Magnesium IV 02/06/19 12:10 AD PRN Pt on Electrolyte Protocol Protocol Miscellaneous Information 1 ea 08/17/18 11:07 Patch Removal TD 02/13/19 11:06 Q72H [place] Montelukast Sodium 10 mg 08/07/18 16:20 Singulair PO 02/03/19 16:19 DAILY PRN allergies, take with Claritin Ondansetron HCl 4 mg 08/07/18 15:12 08/15/18 09:08 Zofran IVP 02/03/19 15:11 4 mg Q4HRS PRN Administration Nausea/Vomiting, Can't Take PO Ondansetron HCl 4 mg 08/07/18 15:12 08/12/18 15:33 Zofran Odt PO 02/03/19 15:11 4 mg Q4HRS PRN Administration Nausea/Vomiting, Use 1st Oxybutynin Chloride 10 mg 08/08/18 09:00 08/15/18 09:59 Ditropan Xl PO 02/04/19 08:59 Not Given DAILY [facility] Pantoprazole Sodium 40 mg 08/12/18 09:45 08/15/18 09:57 Protonix PO 02/08/19 09:44 40 mg BID [place] Administration Potassium Chloride 1 dose 08/10/18 12:11 Protocol Potassium MISC 02/06/19 12:10 AD PRN Pt on Electrolyte Protocol Protocol Prednisone 40 mg 08/14/18 09:00 08/15/18 12:01 Prednisone PO 08/20/18 09:01 Not Given DAILY [place] Prednisone 35 mg 08/21/18 09:00 Prednisone PO 08/27/18 09:01 DAILY [place] Prednisone 30 mg 08/28/18 09:00 Prednisone PO 09/03/18 09:01 DAILY [place] Prednisone 25 mg 09/04/18 09:00 Prednisone PO 09/10/18 09:01 DAILY [place] Prednisone 20 mg 09/11/18 09:00 Prednisone PO 09/17/18 09:01 DAILY [place] Prednisone 15 mg 09/18/18 09:00 Prednisone PO 09/24/18 09:01 DAILY [place] Prednisone 10 mg 09/25/18 09:00 Prednisone PO 10/01/18 09:01 DAILY [place] Prednisone 5 mg 10/02/18 09:00 Prednisone PO 10/08/18 09:01 DAILY [place] Promethazine HCl 12.5 mg 08/13/18 13:12 08/15/18 11:54 Phenergan IVP 02/09/19 13:11 12.5 mg Q6HRS PRN Administration Nausea/Vomiting, Can't Take PO Scopolamine HBr 1 patch 08/14/18 11:15 08/14/18 11:40 Scopolamine Patch TD 02/10/19 11:14 1 patch Q72H [place] Administration Discontinued Medications Generic Name Dose Route Start Last Admin Trade Name Syeda PRN Reason Stop Dose Admin Cholestyramine Resin 4 gm 08/09/18 11:45 08/09/18 13:14 Questran PO 02/05/19 11:44 4 gm DAILY [place] Administration Cholestyramine Resin 4 gm 08/09/18 13:15 08/13/18 15:55 Questran PO 02/05/19 13:14 Not Given DAILY@1300 [place] Ephedrine Sulfate 10 mg 08/10/18 11:40 Ephedrine Sulfate IV 08/10/18 12:41 .Q5M PRN PACU, Hypotension Fentanyl 25 - 100 mcg 08/10/18 11:40 Sublimaze IVP 08/10/18 12:40 Q5M PRN PACU, IMMEDIATE Pain control Sodium Chloride 1,000 mls @ 100 mls/hr 08/07/18 16:30 08/09/18 18:24 Ns IV 08/09/18 02:29 1,000 mls CONT [place] Administration Potassium Chloride/Sodium Chloride 1,000 mls @ 125 mls/hr 08/09/18 16:45 18:00 Ns W/ 20 Kcl/L IV 08/10/18 00:44 1,000 mls CONT [place] Administration Lactated Ringer's 1,000 mls @ 0 mls/hr 08/10/18 10:29 08/10/18 14:59 Lr IV 08/10/18 10:30 Not Given ONCE ONE As Directed Lactated Ringer's 500 mls @ 0 mls/hr 08/10/18 11:40 Lr IV 08/10/18 12:40 PRN PRN PACU, Nausea/Vomiting Post-Op Wide Open Potassium Chloride 100 mls @ 50 mls/hr 08/10/18 20:00 08/10/18 21:11 Potassium Cl 20 Meq (Premix) IV 08/10/18 23:59 100 mls Q2H [place] Administration Magnesium Sulfate 50 mls @ 50 mls/hr 08/11/18 12:13 08/11/18 13:20 Magnesium Sulf 2 Gm (Premix) IV 08/11/18 13:12 50 mls ONCE ONE Administration Magnesium Sulfate/Dextrose 100 mls @ 100 mls/hr 08/12/18 08:21 08/12/18 09:34 Magnesium Sulf 1 Gm (Premix) IV 08/12/18 09:20 100 mls ONCE ONE Administration Sodium Chloride 1,000 mls @ 125 mls/hr 08/12/18 18:00 08/12/18 20:40 Ns IV 08/14/18 01:59 1,000 mls CONT [place] Administration Magnesium Sulfate/Dextrose 100 mls @ 100 mls/hr 08/13/18 08:03 08/13/18 09:56 Magnesium Sulf 1 Gm (Premix) IV 08/13/18 09:02 100 mls ONCE ONE Administration Sodium Chloride 1,000 mls @ 75 mls/hr 08/13/18 13:15 08/13/18 21:56 Ns IV 08/14/18 01:14 1,000 mls CONT [place] Administration Albumin Human 500 mls @ 0 mls/hr 08/14/18 15:09 08/14/18 16:27 Alburx 5 IV 08/14/18 15:10 500 mls ONCE ONE Administration As Directed Lidocaine HCl Confirm 08/08/18 14:05 Lidocaine Hcl 1% Administered 08/08/18 14:06 Dose 300 mg .ROUTE .STK-MED ONE Loperamide HCl 2 mg 08/09/18 12:00 08/09/18 12:52 Imodium PO 02/05/19 11:59 Not Given QID [place] Loperamide HCl 2 mg 08/09/18 17:00 08/14/18 05:59 Imodium PO 02/05/19 16:59 2 mg 0600,1200,1700,2100 [place] Administration Methylprednisolone Sodium Succinate 40 mg 08/10/18 11:47 08/11/18 09:23 Solu-Medrol IVP 02/06/19 11:46 40 mg DAILY [place] Administration Methylprednisolone Sodium Succinate 40 mg 08/11/18 21:00 08/13/18 09:56 Solu-Medrol IVP 02/07/19 20:59 40 mg Q12HRS [place] Administration Metoclopramide HCl 10 mg 08/13/18 15:39 08/13/18 17:11 Reglan Injection IVP 08/13/18 15:40 10 mg ONCE ONE Administration Mirtazapine 7.5 mg 08/07/18 21:00 08/07/18 20:38 Remeron PO 02/03/19 20:59 7.5 mg HS [place] Administration Naloxone HCl 0.1 mg 08/10/18 11:40 Narcan IVP 08/10/18 12:40 Q2M PRN PACU Resp Rate <10/min Ondansetron HCl 2 - 4 mg 08/10/18 11:40 Zofran IVP 08/10/18 12:40 Q10M PRN PACU, Nausea/Vomiting Ondansetron HCl 8 mg 08/13/18 15:38 08/13/18 15:52 Zofran IVP 08/13/18 15:39 8 mg ONCE ONE Administration Pantoprazole Sodium 40 mg 08/12/18 21:00 Protonix PO 02/08/19 20:59 BID [place] Phenylephrine HCl 100 mcg 08/10/18 11:40 Neosynephrine IVP 08/10/18 12:41 .Q2M PRN PACU, Hypotension Polyethylene Glycol/Electrolytes 4,000 ml 08/09/18 15:33 08/09/18 16:18 Gavilyte - G PO 08/09/18 15:34 4,000 ml ONCE ONE Administration Potassium Chloride 10 - 40 meq 08/11/18 12:13 08/11/18 13:21 Klor-Con PO 08/11/18 12:14 10 meq ONCE ONE Administration Protocol Potassium Chloride 20 meq 08/11/18 21:11 08/11/18 21:41 Klor-Con PO 08/11/18 21:12 20 meq ONCE ONE Administration Protocol Potassium Chloride 10 - 40 meq 08/12/18 08:21 08/12/18 09:35 Klor-Con PO 08/12/18 08:22 20 meq ONCE ONE Administration Protocol Potassium Chloride 10 - 40 meq 08/13/18 08:03 08/13/18 09:56 Klor-Con PO 08/13/18 08:04 10 meq ONCE ONE Administration Protocol Potassium Chloride 10 - 40 meq 08/14/18 08:48 08/14/18 10:45 Klor-Con PO 08/14/18 08:49 10 meq ONCE ONE Administration Protocol Potassium Chloride 20 meq 08/14/18 19:38 08/14/18 21:09 Klor-Con PO 08/14/18 19:39 20 meq ONCE ONE Administration Protocol Prednisone 1 each 08/13/18 12:15 Prednisone Taper PO 02/09/19 12:14 .EDIT DOSE INSTRUCT [facility] Propofol Confirm 08/10/18 11:02 Diprivan 10 Mg/Ml (Premix) Administered 08/10/18 11:03 Dose 500 mg IV .STK-MED ONE Physical Exam - Physical Exam General Appearance: cachetic Respiratory: lungs clear, normal breath sounds Cardiac/Chest: regular rate, rhythm Abdomen: distended, other (no significant BS, tenderness to palpation in the uppser abdomen) Skin: normal color, warm/dry Neuro/Psych: oriented x 3 ICD10 Worksheet Patient Problems: Problems Problem Status Onset History of pancreatic cancer Acute
[2018-08-15] MEDS ORDERED: IOPAMIDOL (ISOVUE-300) 100 ML BTL ONE (12:59)
--- NOTE | 2018-08-15 13:03 | SOAPPROG ---
[facility] Progress Note Assessment/Plan: Assessment: 1. Pancreatic cancer-recurrent disease with ascites, left pleural effusion, possibly subtle increase mass pancreatic head-s/p two cycles of gem/abraxane 2. Performance status - currently ECOG 4 3. Mild renal insufficiency-creast stable at 1.3. Urine output still poor. 4. Diarrhea- Colonoscopy suggestive of colitis, biopsy with 'acute, mild colitis ', started empirically on steroids. No clear benefit as of yet. 5. N/V-? Still problematic 6. Malnutrition/anasarca - last albumin 1.5. Will check again. Start calorie count 7. Decreased urinary output - related to intravascular depletion. Will give a trial of IV albumin. The patient continues to deteriorate. I discussed the patient with Dr. Nance. I agree with his plans to get a set of CT scans to look for any possible reversible cause of her clinical decline. If nothing is found, I think we will need to look at [facility]/Hospice. Plan - check a/p CT. Subjective: Responsive to voice but very weak. Short answers. Objective: Vital Signs Temp Pulse Resp BP Pulse Ox 36.6 C 103 H 12 113/75 97 08/15/18 11:43 08/15/18 11:43 08/15/18 11:43 08/15/18 11:43 08/15/18 11:43 Microbiology 08/08/18 10:16 Gram Stain - Final Peritoneal Fluid - Aspirate Anaerobic Culture - Final Laboratory Results 08/14/18 06:10 08/15/18 05:25 08/13/18 08/14/18 08/15/18 23:59 23:59 23:59 Intake Total 3901 1275 500 Output Total 450 1025 200 Balance 3451 250 300 Physical Exam - Physical Exam General Appearance: moderate distress Respiratory: decreased breath sounds (bilateral) Abdomen: distended, ascites, other (diminshed bowel sounds) Skin: other (abdominal wall bruising.) Neuro/Psych: depressed affect ICD10 Worksheet Patient Problems: Problems Problem Status Onset History of pancreatic cancer Acute
[2018-08-15] MEDS ORDERED: HEPARIN 10,000 UNIT/10 ML MDV (1,000 UNIT/ML) IVP PRN (14:04)
[2018-08-15] MEDS ORDERED: HEPARIN 10,000 UNIT/10 ML MDV (1,000 UNIT/ML) IVP ONE (14:04)
--- NOTE | 2018-08-15 14:09 | SOAPPROG ---
BRADY Progress Note Assessment/Plan: Assessment: 1. Pancreatic cancer-recurrent disease with ascites, left pleural effusion, possibly subtle increase mass pancreatic head-s/p two cycles of gem/abraxane 2. Performance status - currently ECOG 4 3. Mild renal insufficiency-creast stable at 1.3. Urine output still poor. 4. Diarrhea- Colonoscopy suggestive of colitis, biopsy with 'acute, mild colitis ', started empirically on steroids. No clear benefit as of yet. 5. N/V-? Still problematic 6. Malnutrition/anasarca - last albumin 1.5. Will check again. Start calorie count 7. Decreased urinary output - related to intravascular depletion. Will give a trial of IV albumin. The patient continues to deteriorate. I discussed the patient with Dr. Nance. I agree with his plans to get a set of CT scans to look for any possible reversible cause of her clinical decline. If nothing is found, I think we will need to look at [facility]Hospice. Plan - check a/p CT. 08/15/18 14:07 ADDENDUM: CT shows complete portal vein thrombosis. Will anticoagulate with UFH. Discussed with family/Dr. Hernandez/Dr. Nance Objective: Vital Signs Temp Pulse Resp BP Pulse Ox 36.6 C 103 H 12 113/75 97 08/15/18 11:43 08/15/18 11:43 08/15/18 11:43 08/15/18 11:43 08/15/18 11:43 Microbiology 08/08/18 10:16 Gram Stain - Final Peritoneal Fluid - Aspirate Anaerobic Culture - Final Laboratory Results 08/14/18 06:10 08/15/18 05:25 08/13/18 08/14/18 08/15/18 23:59 23:59 23:59 Intake Total 3901 1275 500 Output Total 450 1025 200 Balance 3451 250 300 ICD10 Worksheet Patient Problems: Problems Problem Status Onset History of pancreatic cancer Acute
[2018-08-15] MEDS ORDERED: HEPARIN/DEXTROSE 500 ML IV SCH (14:15)
[2018-08-15 14:35] LABS: PLATELET COUNT 226 10^3/uL (150-400)
[2018-08-15 15:04] LABS: INR 1.82 (0.83-1.16); PROTIME(PATIENT) 20.2 SEC (12.0-15.0)
--- NOTE | 2018-08-15 15:19 | ASMTCMCOM ---
CM Note CM Note Notes: Patient plan of care reviewed in am rounds. The patient continues to experience nausea and vomiting despite medication changes. Her condition is worsening and she may not be able to go to rehab unless some improvement is made. She is followed by [facility] for palliative care at this point and per oncology may need to consider transitioning to hospice at this point. Plan: Unclear at this point. CM to follow for SNF versus inpatient hospice Date Signed: 08/15/2018 03:18 PM Electronically Signed By:Mare Soliman RN
[2018-08-15] MEDS ORDERED: HALOPERIDOL LACT 5 MG/ML INJ IVP ONE (15:30)
--- NOTE | 2018-08-15 17:02 | HOSPPROG ---
Hospitalist Progress Note Assessment/Plan: The patient is a 63-year-old female with PMH localized invasive pancreatic cancer who was admitted for diarrhea, dehydration, gen weakness, FTT. Colitis, immune mediated -pt w/ diarrhea/colitis since hospitalization in May for cholecystectomy -GI path panel negative. 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 -Hydration status has improved. - S/p IV Albumin on 08/14 with improvement in UO, will hold further dosing for now NAGMA and Dehydration, 2/2 diarrhea -persists -Continue to monitor BMP Hyponatremia, hypovolemic/hypotonic resolved - 2/2 diarrhea/VINITA, Na 132 this AM - Continue to monitor Pancreatic cancer, s/p CBD metal stent for malignant stricture, unresectable pancreatic cancer Ascites L pleural effusion Hepatic steatosis H/o recent cholecystectomy Gen Weakness, 2/2 above -PT/OT. New Sacra Pressure Injury Hypomagnesemia, replacing SPCMN Urinary retention: barrera was discontinued on 08/11, replaced on 08/12 VTE prophylaxis: Lovenox. Code Status: DNR Status: Inpatient for > 2 midnight stay. Disposition: Med surg. will need a SNF Objective: Vital Signs Temp Pulse Resp BP Pulse Ox 36.7 C 104 H 12 110/74 97 08/15/18 15:51 08/15/18 15:51 08/15/18 15:51 08/15/18 15:51 08/15/18 15:51 Microbiology 08/08/18 10:16 Mycobacterial Smear (TRACIE) - Final Peritoneal Fluid - Aspirate 08/08/18 10:16 Gram Stain - Final Peritoneal Fluid - Aspirate Anaerobic Culture - Final Laboratory Results 08/15/18 14:20 08/15/18 05:25 08/14/18 08/15/18 08/16/18 05:59 05:59 05:59 Intake Total 3601 1575 Output Total 350 1075 Balance 3251 500 PT 20.2 SEC (12.0-15.0) H 08/15/18 14:20 INR 1.82 (0.83-1.16) H 08/15/18 14:20 ICD10 Worksheet Patient Problems: Problems Problem Status Onset History of pancreatic cancer Acute
--- NOTE | 2018-08-15 17:09 | HOSPPROG ---
Hospitalist Progress Note Assessment/Plan: The patient is a 63-year-old female with PMH localized invasive pancreatic cancer who was admitted for diarrhea, dehydration, gen weakness, FTT. Colitis, immune mediated -pt w/ diarrhea/colitis since hospitalization in May for cholecystectomy -GI path panel negative. 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 -Hydration status has improved. - S/p IV Albumin on 08/14 with improvement in UO, will hold further dosing for now NAGMA and Dehydration, 2/2 diarrhea -persists -Continue to monitor BMP Hyponatremia, hypovolemic/hypotonic resolved - 2/2 diarrhea/VINITA, Na 132 this AM - Continue to monitor Pancreatic cancer, s/p CBD metal stent for malignant stricture, unresectable pancreatic cancer - Oncology following, discussed with Dr. Orozco this AM, appreciate input - Palliative care consulted this AM, discussed with Dr. Cota, appreciate input Ascites L pleural effusion Hepatic steatosis H/o recent cholecystectomy Gen Weakness, 2/2 above -PT/OT. New Sacra Pressure Injury Hypomagnesemia, replacing SPCMN Urinary retention: barrera was discontinued on 08/11, replaced on 08/12 VTE prophylaxis: Heparin gtt as above Code Status: DNR Status: Inpatient for > 2 midnight stay. Disposition: Med surg. will need a SNF Subjective: Patient with nausea this AM Objective: Vital Signs Temp Pulse Resp BP Pulse Ox 36.7 C 104 H 12 110/74 97 08/15/18 15:51 08/15/18 15:51 08/15/18 15:51 08/15/18 15:51 08/15/18 15:51 Microbiology 08/08/18 10:16 Mycobacterial Smear (TRACIE) - Final Peritoneal Fluid - Aspirate 08/08/18 10:16 Gram Stain - Final Peritoneal Fluid - Aspirate Anaerobic Culture - Final Laboratory Results 08/15/18 14:20 08/15/18 05:25 08/14/18 08/15/18 08/16/18 05:59 05:59 05:59 Intake Total 3601 1575 Output Total 350 1075 Balance 3251 500 PT 20.2 SEC (12.0-15.0) H 08/15/18 14:20 INR 1.82 (0.83-1.16) H 08/15/18 14:20 - Physical Exam Constitutional: chronically ill appearing Eyes: PERRL Ears, Nose, Mouth, Throat: dry mucous membranes Cardiovascular: tachycardia, edema Respiratory: no respiratory distress, reduced air movement Gastrointestinal: ascites, distension, No tenderness Skin: warm Musculoskeletal: generalized weakness Neurologic: AAOx3 Psychiatric: interacting appropriately ICD10 Worksheet Patient Problems: Problems Problem Status Onset History of pancreatic cancer Acute
[2018-08-15] MEDS: HALOPERIDOL LACT 5 MG/ML INJ IVP SCH (20:35)
[2018-08-15] MEDS: GABAPENTIN 300 MG CAP PO SCH ×2 (20:35→22:00)
[2018-08-15] MEDS: PANTOPRAZOLE SODIUM 40 MG VIAL IVP SCH (20:35)
--- NOTE | 2018-08-15 20:36 | GCON ---
[f rep st] CONSULTATION PALLIATIVE MEDICINE CONSULT DATE OF CONSULTATION: 08/15/2018 REFERRING PHYSICIAN: Liam Hernandez DO CHIEF COMPLAINT: Dr. Liam Hernandez requests symptom management for nausea, as well as supportive care. HISTORY OF PRESENT ILLNESS: This is a 63-year-old woman who has metastatic pancreatic cancer. She w as admitted to the hospital on August 07 because of severe diarrhea. She was diagnosed with a noninfe ctious colitis and was treated with steroids. She has had progressive ascites. Her appetite has bee n minimal. Yesterday, she had been starting to improve and her diarrhea had resolved. Unfortunately , she then developed severe nausea and vomiting which persists. She does have a common bile duct juani nt. She also was dehydrated on admission. Currently, she is minimally able to participate in provid ing a history given her severe level of nausea. She did have a scopolamine patch added yesterday and it is unclear if this is helping or not. She is experiencing a very dry mouth. Her brother is at [facility] and states that she has vomited twice this morning. She vomits about a cup of light brown liq uid at a time. While I with her she vomits again. She denies any flatus to me. She remembers Dr. Rajinder nowak coming and talking with her and telling her about the blood clot. She also is aware that her weakened functional status may minimize her options for ongoing treatment of her cancer. She does ad ferny that pills are very hard to swallow. Her family reports she is sleeping all of the time. She ap pears quite weak. She does not seem to have any shortness of breath. She denies pain to me. REVIEW OF SYSTEMS: Is limited by the patient's acute illness. PAST MEDICAL HISTORY: 1. Metastatic pancreatic cancer. 2. Hyperlipidemia. 3. Hypertension. SOCIAL HISTORY: She would want her sister Talia as her medical power of commercial attorney. She has stated pr eviously that she wishes to be do not resuscitate. She is a nonsmoker. FAMILY HISTORY: Per review of computerized records, no pertinent family history. ALLERGIES: Cephalexin and penicillins, as well as yeast. CURRENT MEDICATIONS: Include Marinol 2.5 mg twice daily, Neurontin 600 mg at bedtime. She is curren tly on a prednisone taper. She has been started on heparin. She has a scopolamine patch. She takes Singulair 10 mg daily. She has Zofran 4 mg IV push every 4 hours as needed, oxybutynin 10 mg p.o. d aily, Protonix 40 mg p.o. twice daily. She is receiving IV fluids with potassium. PHYSICAL EXAM: VITAL SIGNS: Shows a blood pressure of 113/75, a heart rate of 103, respiratory rate of 12. She is currently saturating 97% on room air and is afebrile with a temperature of 36.6 degre es Fahrenheit. GENERAL: She appears lethargic and acutely, as well as chronically ill. She is in m oderate distress. Her voice is weak and she is minimally able to participate in history and exam. H EENT: She has alopecia. She has marked temporal wasting. There is no icterus. Mucous membranes ar e quite dry. Hearing is grossly intact. CV: Tachycardic. She has trace to +1 lower extremity mike a bilaterally. RESPIRATORY: Anterior auscultation only but overall clear. ABDOMEN: Positive bowel sounds but high pitched at times. They are hypoactive. Abdomen seems soft. MUSCULOSKELETAL: Diff usely weak with muscle atrophy noted. LABORATORY DATA: Her white blood cell count is 40.1, her hemoglobin is 9.7 and her platelets are 226 . Her sodium is 133, potassium 3.9, chloride 112, bicarbonate 15, BUN 37, and creatinine 1.3. CT sc an of the abdomen showed a new and complete thrombosis of the left portal vein and near complete thro mbosis of the main portal vein. This is new from 6 weeks ago. There is also diffuse 3rd spacing and moderate bilateral pleural effusions, as well as a large amount of ascites. There is also evidence for a mild adynamic ileus but no evidence for mechanical bowel obstruction. She also has a pancreati c head mass and small liver metastases unchanged from prior. Her biliary stent appears to be in good position. ASSESSMENT AND PLAN: A 63-year-old woman with metastatic pancreatic cancer. She seems to be poorly tolerating attempts at treatment at this time. 1. Nausea. This could be related to her adynamic ileus. She does have intermittent high-pitched claudia wel sounds. She is denying flatus. She was on loperamide for her diarrhea which could be a contribu ting factor. An option to consider for the patient would be to place a small gauge nasogastric tube such as a Dobhoff to remove all contents from her stomach that she is currently vomiting. I would no t leave this in place if patient is willing to try this. Placement of the Dobbhoff tube may cause mo re retching. Will add Haldol 1 mg IV push every 6 hours around the clock. I have also ordered an im mediate 2 mg of Haldol given the severity of her nausea and vomiting during my exam. She can continu e to have Zofran as needed for breakthrough nausea. Her scopolamine patch also remains in place. Th is may be contributing to dry mouth and given that it was placed yesterday and her symptoms are quite severe today, I am not certain of benefit. It could be contributing to confusion and lethargy. In addition, the combination of scopolamine with Marinol can cause tachycardia. The patient is experien cing difficulty with pills. Marinol was used to improve appetite. There is a 3% to 10% incidence of nausea with Marinol. Given that her appetite will not improve until her nausea improves, I have dis continued this medication. I would recommend switching all medications possible to IV form. I have changed her from an oral proton pump inhibitor to an IV proton pump inhibitor as well. I would recom mend changing her prednisone to IV form as well. 2. Goals of care. I briefly engaged in a discussion with the patient about who would be able to car e for her if she were able to leave the hospital. She is minimally able to participate in this conve rsation at this time. She is rapidly approaching the state where she is likely to become bedbound. She did verbalize awareness that because of her poor functional status, she may not be a candidate fo r further attempts at treatment of her cancer. Please note that approximately 60 minutes have been spent on this consult. /[id number]/MODL
[2018-08-16] MEDS: HALOPERIDOL LACT 5 MG/ML INJ IVP SCH ×4 (02:24→19:37)
[2018-08-16] MEDS ORDERED: NS 500 ML IV ONE (04:35)
[2018-08-16 04:42] LABS: PLATELET COUNT 277 10^3/uL (150-400)
[2018-08-16] MEDS: PROMETHAZINE HCL 25 MG/ML INJ IVP PRN ×2 (04:43→17:25)
--- NOTE | 2018-08-16 07:41 | SOAPPROG ---
SOAP Progress Note Assessment/Plan: Assessment: 63 year old with metastatic pancreatic cancer. Patient admitted with failure to thrive, diarrhea and weight loss. Overall worsening condition. Unable to eat, nausea and vomiting. Increase in abdominal girth, absent BS. CT scan with extensive portal vein thrombosis. Ascites, Edema. Started on Heparin. Over all prognosis is very poor. Plan: 1. Continue on anti-coagulation, IV Heparin 2. Patient unable to eat due to ileus and congestion of bowels. Can try sips. 08/16/18 07:37 Subjective: CC: Metastatic Pancreatic cancer. Acute portal vein thrombosis, extensive. Patient clinically not doing well, unable to eat becoming more lethargic. Objective: Vital Signs Temp Pulse Resp BP Pulse Ox 36.8 C 111 H 16 100/60 97 08/16/18 04:24 08/16/18 04:24 08/16/18 04:24 08/16/18 04:24 08/16/18 04:24 Microbiology 08/08/18 10:16 Mycobacterial Smear (TRACIE) - Final Peritoneal Fluid - Aspirate 08/08/18 10:16 Gram Stain - Final Peritoneal Fluid - Aspirate Anaerobic Culture - Final Laboratory Results 08/16/18 04:25 08/16/18 04:25 08/15/18 08/16/18 08/17/18 05:59 05:59 05:59 Intake Total 1575 918.5 Output Total 1075 460 Balance 500 458.5 PT 20.2 SEC (12.0-15.0) H 08/15/18 14:20 INR 1.82 (0.83-1.16) H 08/15/18 14:20 Generic Name Dose Route Start Last Admin Trade Name Freq PRN Reason Stop Dose Admin Acetaminophen 650 mg 08/07/18 15:12 Tylenol PO 02/03/19 15:11 Q4HRS PRN Pain, Mild/Fever, Can Take PO Gabapentin 600 mg 08/07/18 21:00 08/15/18 22:00 Neurontin PO 02/03/19 20:59 Not Given HS [place] Haloperidol Lactate 1 mg 08/15/18 21:00 08/16/18 02:24 Haldol Injection IVP 02/11/19 20:59 1 mg Q6H [place] Administration Heparin Sodium (Porcine) 0 unit 08/15/18 14:04 Heparin Injection IVP 02/11/19 14:03 PRN PRN re-bolus required by protocol Potassium Chloride/Sodium Chloride 1,000 mls @ 100 mls/hr 08/10/18 09:30 05:19 Ns W/ 20 Kcl/L IV 02/06/19 09:29 1,000 mls CONT [place] Administration Heparin Sodium (Porcine) 500 mls @ 0 mls/hr 08/15/18 14:15 08/15/18 16:22 Heparin 50 Units/Ml (Premix) IV 02/11/19 14:14 500 mls CONT [place] Administration Protocol Per Protocol Loperamide HCl 2 mg 08/07/18 16:23 08/12/18 02:07 Imodium PO 02/03/19 16:22 2 mg PRN PRN Administration LOOSE STOOLS Magnesium Sulfate 1 dose 08/10/18 12:11 Protocol Magnesium IV 02/06/19 12:10 AD PRN Pt on Electrolyte Protocol Protocol Miscellaneous Information 1 ea 08/17/18 11:07 Patch Removal TD 02/13/19 11:06 Q72H [place] Montelukast Sodium 10 mg 08/07/18 16:20 Singulair PO 02/03/19 16:19 DAILY PRN allergies, take with Claritin Ondansetron HCl 4 mg 08/07/18 15:12 08/15/18 09:08 Zofran IVP 02/03/19 15:11 4 mg Q4HRS PRN Administration Nausea/Vomiting, Can't Take PO Ondansetron HCl 4 mg 08/07/18 15:12 08/12/18 15:33 Zofran Odt PO 02/03/19 15:11 4 mg Q4HRS PRN Administration Nausea/Vomiting, Use 1st Oxybutynin Chloride 10 mg 08/08/18 09:00 08/15/18 09:59 Ditropan Xl PO 02/04/19 08:59 Not Given DAILY [place] Pantoprazole Sodium 40 mg 08/15/18 21:00 08/15/18 20:35 Protonix IVP 02/11/19 20:59 40 mg BID [place] Administration Potassium Chloride 1 dose 08/10/18 12:11 Protocol Potassium MISC 02/06/19 12:10 AD PRN Pt on Electrolyte Protocol Protocol Prednisone 40 mg 08/14/18 09:00 08/15/18 12:01 Prednisone PO 08/20/18 09:01 Not Given DAILY [facility] Prednisone 35 mg 08/21/18 09:00 Prednisone PO 08/27/18 09:01 DAILY [facility] Prednisone 30 mg 08/28/18 09:00 Prednisone PO 09/03/18 09:01 DAILY [facility] Prednisone 25 mg 09/04/18 09:00 Prednisone PO 09/10/18 09:01 DAILY [facility] Prednisone 20 mg 09/11/18 09:00 Prednisone PO 09/17/18 09:01 DAILY [facility] Prednisone 15 mg 09/18/18 09:00 Prednisone PO 09/24/18 09:01 DAILY [facility] Prednisone 10 mg 09/25/18 09:00 Prednisone PO 10/01/18 09:01 DAILY [facility] Prednisone 5 mg 10/02/18 09:00 Prednisone PO 10/08/18 09:01 DAILY [facility] Promethazine HCl 12.5 mg 08/13/18 13:12 08/16/18 04:43 Phenergan IVP 02/09/19 13:11 12.5 mg Q6HRS PRN Administration Nausea/Vomiting, Can't Take PO Scopolamine HBr 1 patch 08/14/18 11:15 08/14/18 11:40 Scopolamine Patch TD 02/10/19 11:14 1 patch Q72H [place] Administration Discontinued Medications Generic Name Dose Route Start Last Admin Trade Name Freq PRN Reason Stop Dose Admin Cholestyramine Resin 4 gm 08/09/18 11:45 08/09/18 13:14 Questran PO 02/05/19 11:44 4 gm DAILY [place] Administration Cholestyramine Resin 4 gm 08/09/18 13:15 08/13/18 15:55 Questran PO 02/05/19 13:14 Not Given DAILY@1300 [facility] Dronabinol 2.5 mg 08/08/18 21:00 08/15/18 09:57 Marinol PO 08/18/18 20:59 2.5 mg BID [place] Administration Ephedrine Sulfate 10 mg 08/10/18 11:40 Ephedrine Sulfate IV 08/10/18 12:41 .Q5M PRN PACU, Hypotension Fentanyl 25 - 100 mcg 08/10/18 11:40 Sublimaze IVP 08/10/18 12:40 Q5M PRN PACU, IMMEDIATE Pain control Haloperidol Lactate 2 mg 08/15/18 15:30 08/15/18 16:13 Haldol Injection IVP 08/15/18 15:31 2 mg ONCE ONE Administration Heparin Sodium (Porcine) 0 unit 08/15/18 14:04 08/15/18 16:20 Heparin Injection IVP 08/15/18 14:05 7,100 units ONCE ONE Administration Sodium Chloride 1,000 mls @ 100 mls/hr 08/07/18 16:30 08/09/18 18:24 Ns IV 08/09/18 02:29 1,000 mls CONT [place] Administration Potassium Chloride/Sodium Chloride 1,000 mls @ 125 mls/hr 08/09/18 16:45 18:00 Ns W/ 20 Kcl/L IV 08/10/18 00:44 1,000 mls CONT [place] Administration Lactated Ringer's 1,000 mls @ 0 mls/hr 08/10/18 10:29 08/10/18 14:59 Lr IV 08/10/18 10:30 Not Given ONCE ONE As Directed Lactated Ringer's 500 mls @ 0 mls/hr 08/10/18 11:40 Lr IV 08/10/18 12:40 PRN PRN PACU, Nausea/Vomiting Post-Op Wide Open Potassium Chloride 100 mls @ 50 mls/hr 08/10/18 20:00 08/10/18 21:11 Potassium Cl 20 Meq (Premix) IV 08/10/18 23:59 100 mls Q2H [place] Administration Magnesium Sulfate 50 mls @ 50 mls/hr 08/11/18 12:13 08/11/18 13:20 Magnesium Sulf 2 Gm (Premix) IV 08/11/18 13:12 50 mls ONCE ONE Administration Magnesium Sulfate/Dextrose 100 mls @ 100 mls/hr 08/12/18 08:21 08/12/18 09:34 Magnesium Sulf 1 Gm (Premix) IV 08/12/18 09:20 100 mls ONCE ONE Administration Sodium Chloride 1,000 mls @ 125 mls/hr 08/12/18 18:00 08/12/18 20:40 Ns IV 08/14/18 01:59 1,000 mls CONT [place] Administration Magnesium Sulfate/Dextrose 100 mls @ 100 mls/hr 08/13/18 08:03 08/13/18 09:56 Magnesium Sulf 1 Gm (Premix) IV 08/13/18 09:02 100 mls ONCE ONE Administration Sodium Chloride 1,000 mls @ 75 mls/hr 08/13/18 13:15 08/13/18 21:56 Ns IV 08/14/18 01:14 1,000 mls CONT [place] Administration Albumin Human 500 mls @ 0 mls/hr 08/14/18 15:09 08/14/18 16:27 Alburx 5 IV 08/14/18 15:10 500 mls ONCE ONE Administration As Directed Sodium Chloride 500 mls @ 250 mls/hr 08/16/18 04:35 08/16/18 04:43 Ns IV 08/16/18 06:34 500 mls ONCE ONE Administration Iopamidol Confirm 08/15/18 12:59 Isovue-300 Administered 08/15/18 13:00 Dose 100 ml .ROUTE .STK-MED ONE Lidocaine HCl Confirm 08/08/18 14:05 Lidocaine Hcl 1% Administered 08/08/18 14:06 Dose 300 mg .ROUTE .STK-MED ONE Loperamide HCl 2 mg 08/09/18 12:00 08/09/18 12:52 Imodium PO 02/05/19 11:59 Not Given QID [place] Loperamide HCl 2 mg 08/09/18 17:00 08/14/18 05:59 Imodium PO 02/05/19 16:59 2 mg 0600,1200,1700,2100 [place] Administration Methylprednisolone Sodium Succinate 40 mg 08/10/18 11:47 08/11/18 09:23 Solu-Medrol IVP 02/06/19 11:46 40 mg DAILY [place] Administration Methylprednisolone Sodium Succinate 40 mg 08/11/18 21:00 08/13/18 09:56 Solu-Medrol IVP 02/07/19 20:59 40 mg Q12HRS [place] Administration Metoclopramide HCl 10 mg 08/13/18 15:39 08/13/18 17:11 Reglan Injection IVP 08/13/18 15:40 10 mg ONCE ONE Administration Mirtazapine 7.5 mg 08/07/18 21:00 08/07/18 20:38 Remeron PO 02/03/19 20:59 7.5 mg HS [place] Administration Naloxone HCl 0.1 mg 08/10/18 11:40 Narcan IVP 08/10/18 12:40 Q2M PRN PACU Resp Rate <10/min Ondansetron HCl 2 - 4 mg 08/10/18 11:40 Zofran IVP 08/10/18 12:40 Q10M PRN PACU, Nausea/Vomiting Ondansetron HCl 8 mg 08/13/18 15:38 08/13/18 15:52 Zofran IVP 08/13/18 15:39 8 mg ONCE ONE Administration Pantoprazole Sodium 40 mg 08/12/18 21:00 Protonix PO 02/08/19 20:59 BID [place] Pantoprazole Sodium 40 mg 08/12/18 09:45 08/15/18 09:57 Protonix PO 02/08/19 09:44 40 mg BID [place] Administration Phenylephrine HCl 100 mcg 08/10/18 11:40 Neosynephrine IVP 08/10/18 12:41 .Q2M PRN PACU, Hypotension Polyethylene Glycol/Electrolytes 4,000 ml 08/09/18 15:33 08/09/18 16:18 Gavilyte - G PO 08/09/18 15:34 4,000 ml ONCE ONE Administration Potassium Chloride 10 - 40 meq 08/11/18 12:13 08/11/18 13:21 Klor-Con PO 08/11/18 12:14 10 meq ONCE ONE Administration Protocol Potassium Chloride 20 meq 08/11/18 21:11 08/11/18 21:41 Klor-Con PO 08/11/18 21:12 20 meq ONCE ONE Administration Protocol Potassium Chloride 10 - 40 meq 08/12/18 08:21 08/12/18 09:35 Klor-Con PO 08/12/18 08:22 20 meq ONCE ONE Administration Protocol Potassium Chloride 10 - 40 meq 08/13/18 08:03 08/13/18 09:56 Klor-Con PO 08/13/18 08:04 10 meq ONCE ONE Administration Protocol Potassium Chloride 10 - 40 meq 08/14/18 08:48 08/14/18 10:45 Klor-Con PO 08/14/18 08:49 10 meq ONCE ONE Administration Protocol Potassium Chloride 20 meq 08/14/18 19:38 08/14/18 21:09 Klor-Con PO 08/14/18 19:39 20 meq ONCE ONE Administration Protocol Prednisone 1 each 08/13/18 12:15 Prednisone Taper PO 02/09/19 12:14 .EDIT DOSE INSTRUCT [place] Propofol Confirm 08/10/18 11:02 Diprivan 10 Mg/Ml (Premix) Administered 08/10/18 11:03 Dose 500 mg IV .STK-MED ONE Physical Exam - Physical Exam General Appearance: other (No alert) Respiratory: lungs clear Abdomen: distended, other (absent BS) Skin: warm/dry ICD10 Worksheet Patient Problems: Problems Problem Status Onset History of pancreatic cancer Acute
[2018-08-16] MEDS: PANTOPRAZOLE SODIUM 40 MG VIAL IVP SCH (10:02)
--- NOTE | 2018-08-16 11:41 | PDPCPN ---
Palliative Care Progress Note Assessment/Plan: Assessment: 1) Pancreatic Cancer - discussed with Dr. Chang. Given patient's current functional status, further chemotherapy would not be offered at this juncture. 2) Nausea and Vomiting - Has not responded well to Scopolamine patch or PRN Haldol to date. 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 Would recommend removal of Scopolamine patch as this may be contributing to sedation (as may Haldol). Discussed possible decompression with Dr. Hernandez - could possibly experience benefit, but need to weigh against discomfort of NG tube. Dexamethasone would be reasonable ( and a fair replacement for Prednisone). Ativan may offer benefit but also sedating. 3) Altered Mental Status - cannot rule out medications, however trajectory described by family implies disease progression may be etiology. 4) Dispo - patient would be appropriate for hospice services if family aligned. Dr. Chang and Dr. Hernandez will meet with family later and discuss from their perspectives. Plan: 1) DC Scopolamine Patch 2) IV Dexamethasone 3) Consider NGT and trial of Ativan 4) Possible referral to hospice 08/16/18 11:30 08/16/18 11:57 Subjective: Patient seen today for Palliative Care follow up. Floridalma has had minimal relief of nausea and vomiting with 1 and later 2mg doses of Haldol, and no significant improvement since Scopolamine patch placed. She is now taking virtually no PO and has been very sedated with family. She awoke briefly during my visit, however speech unintelligible and all history gathered from chart, RN, discussion with Dr. Pascal and Dr. Chang, and family at bedside. Family describes steady decline at home over the last couple of weeks, progressively weak and unsteady on feet, diarrhea and vomiting, declining PO solids and able to tolerate only Gatorade. Cognitive status was reasonable up until the last couple of days when they've noted worsening sedation. 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 They have spoken with Dr. Chang and understand that she is too weak for further chemotherapy at this time. Family states that Floridalma has worried about being a burden to anyone, and chose a do no resuscitate status at hospital admission in keeping with this wish. They have not had specific discussions about care in this type of situation, but feel they know she would not wan her life artificially prolonged if there was no hope of meaningful recovery. We discussed transition to comfort-focused care if no reversible cause for her decline identified - family understands this approach and in agreement as they see her as dying and are unsure if further aggressive measures will be helpful. Objective: Unresponsive initially, awoke briefly during my visit however speech unintelligible. Pale/ashen, appears acutely and chronically ill. HEENT - PERRLA, normal EOM's, temporal wasting noted CHEST - shallow respirations, no wheezes, rales or rhonchi noted, port in chest wall. CVS - RRR, no MRG ABD - rare faint bowel sounds, distended, mild grimace with palpation at LLQ. NEURO - no posturing or seizure activity noted, no facial asymmetry, tone symmetric in all extremities DERM - limited exam, no acute lesions appreciated EXTS - pedal edema 2+ Vital Signs Temp Pulse Resp BP Pulse Ox 37.0 C 109 H 12 93/64 L 94 08/16/18 07:55 08/16/18 07:55 08/16/18 07:55 08/16/18 07:55 08/16/18 07:55 Microbiology 08/08/18 10:16 Mycobacterial Smear (TRACIE) - Final Peritoneal Fluid - Aspirate 08/08/18 10:16 Gram Stain - Final Peritoneal Fluid - Aspirate Anaerobic Culture - Final Laboratory Results 08/16/18 04:25 08/16/18 04:25 08/15/18 08/16/18 08/17/18 05:59 05:59 05:59 Intake Total 1575 918.5 Output Total 1075 460 Balance 500 458.5 PT 20.2 SEC (12.0-15.0) H 08/15/18 14:20 INR 1.82 (0.83-1.16) H 08/15/18 14:20 - Time Spent With Patient Time Spent With Patient: TIME SPENT - 60 minutes, including prolonged discussion with family and care coordination with Dr. Hernandez, Dr. Chang and Palliative Care Quick Service Technician. ICD10 Worksheet Patient Problems: Problems Problem Status Onset History of pancreatic cancer Acute
--- NOTE | 2018-08-16 12:29 | SOAPPROG ---
SOAP Progress Note Assessment/Plan: Assessment: 1. Pancreatic cancer-recurrent disease with ascites, left pleural effusion, possibly subtle increase mass pancreatic head-s/p two cycles of gem/abraxane 2. Performance status - she is moribund. Barely awakens to voice. Receiving last rites. 3. Renal failure - Cr. jumped from 1.3 to 1.8 today 4. Portal vein thrombosis 5. Ileus Floridalma continues to deteriorate despite medical interventions. She is moribund. Best supportive care/hospice is most appropriate. Discussed with family. I'll sign off. Please call with questions. Plan BSC/Hospice Subjective: Barely opens eyes to calling her name. Objective: Vital Signs Temp Pulse Resp BP Pulse Ox 36.7 C 107 H 12 96/61 L 96 08/16/18 11:29 08/16/18 11:29 08/16/18 11:29 08/16/18 11:29 08/16/18 11:29 Microbiology 08/08/18 10:16 Mycobacterial Smear (RTACIE) - Final Peritoneal Fluid - Aspirate 08/08/18 10:16 Gram Stain - Final Peritoneal Fluid - Aspirate Anaerobic Culture - Final Laboratory Results 08/16/18 04:25 08/16/18 04:25 08/14/18 08/15/18 08/16/18 23:59 23:59 23:59 Intake Total 1275 1218.5 200 Output Total 1025 350 310 Balance 250 868.5 -110 PT 20.2 SEC (12.0-15.0) H 08/15/18 14:20 INR 1.82 (0.83-1.16) H 08/15/18 14:20 Physical Exam - Physical Exam General Appearance: obtunded Abdomen: distended, No normal bowel sounds (diminished bowel sounds), No non- tender (tender to palpation) ICD10 Worksheet Patient Problems: Problems Problem Status Onset History of pancreatic cancer Acute
--- NOTE | 2018-08-16 14:57 | PDDCSUM ---
Discharge Summary Discharge Summary: Date of Admission: 08/07/2018 Date of Admission: 08/16/2018 Consults: Oncology, GI, Palliative Care Followup: Patient being discharged to Hospice Hospital Course Problem List: The patient is a 63-year-old female with PMH localized invasive pancreatic cancer who was admitted for diarrhea, dehydration, gen weakness, FTT. Goals of Care - Discussed with family this morning, patient is somnolent, who expressed patient's rapid decline over past few weeks - Palliative care consulted, appreciate input - Pt to be discharged to inpatient hospice facility this afternoon Colitis, immune mediated -pt w/ diarrhea/colitis since hospitalization in May for cholecystectomy -GI path panel negative. 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 -SoluMedrol started on 08/10, transitioned to PO Prednisone per GI on 08/13, plan to switch to dexamethasone given lack of PO intake Portal Vein Thrombosis - Seen on CT scan on 08/15 - Started on Heparin gtt, s/p bolus - Hematology/Oncology following VINITA - Cr worsened 1.3->1.8 this AM, urine output ~160 ml over past 24 hours - S/p IV Albumin on 08/14 with improvement in UO NAGMA and Dehydration, 2/2 diarrhea -persists -Continue to monitor BMP Hyponatremia, hypovolemic/hypotonic resolved - 2/2 diarrhea/VINITA, Na 132 - Continue to monitor Pancreatic cancer, s/p CBD metal stent for malignant stricture, unresectable pancreatic cancer - Oncology following, discussed with Dr. Orozco this AM, appreciate input - Palliative care consulted as above Ascites L pleural effusion Hepatic steatosis H/o recent cholecystectomy Gen Weakness, 2/2 above New Sacra Pressure Injury Hypomagnesemia, replacing SPCMN Urinary retention Time spent on discharge was >35 minutes with >50% of time spent on patient education and counseling.
--- NOTE | 2018-08-16 15:07 | ASDISCHSUM ---
Discharge Information Plan Status:Hospice-Inpatient Medically Cleared to Leave:08/16/2018 Discharge Date:08/16/2018 CM D/C Disposition:Hospice Facility ADT D/C Disposition:Hospice Facility Projected Discharge Date:08/16/2018 11:00 AM Transportation at D/C:ALS/BLS Discharge Delay Reason: Follow-Up Date:08/16/2018 11:00 AM Discharge Slot: Final Diagnosis: Placement Information Referral Type:*Long Term/SNF Referral ID:[id number] Provider Name: Address 1: Phone Number: Address 2: Fax Number: City: Selection Factors: State: Referral Type:Palliative Care Referral ID:[id number] Provider Name:[facility] Address 1:[address] Address 2: City:[place] Selection Factors: State:[place] Patient Contact Information Contact Name:FIORDALIZA Relationship: Address: Work Phone: City: [facility] Phone: [facility] Code: Email: Financial Information Financial Class:BCOP Primary Plan Desc:BC OUT OF STATE PP Primary Plan Number:[id number] Secondary Plan Desc: Secondary Plan Number: Assessment Information LACE LACE Length of stay for Answers: 7-13 days current admission Acuity / Level of Answers: Yes Care: Did the patient have an inpatient admission? Comorbidities - select Answers: Any tumor (including all that apply lymphoma or leukemia) Other Notes: CBD stent # of Emergency department Answers: 1-2 visits in the last 6 months Score: 12 Date Signed: 08/16/2018 03:05 PM Electronically Signed By:HAIDER Marino [facility] CM Progress Note CM Note CM Note Notes: 08/08/2018 Case Management Note Discussed pt during rounds. Pt admitted for pancreatic cancer, FTT, dehydration, anemia and weakness. Pt followed by [facility]. [facility] onsite today, please see note. Faxed updates via [email or web address]. PT recommending SNF rehab. Met w/pt, brother Bradford [phone] and sister in law to discuss d/c needs. All in agreement with SNF rehab. Provided blue book and SNF list. After discussion faxed referrals to [facility] [place], [facility] and [facility]. Family planning for pt to move into assisted living after SNF rehab stay. Provided blue book for information. Discussed that family should tour area assisted livings as some have wait lists. Case Management d/c poc: SNF rehab pending acceptance. Case Management to follow. Date Signed: 08/08/2018 04:27 PM Electronically Signed By:Windy Lucas RN [facility] CM Progress Note CM Note CM Note Notes: Met with Pt and for discharge planning and they have chosen [facility] [place] who they met with today. Contacted [employer] and they are waiting for authorization. CM available for needs. PLAN: SNF/Discharge to [facility] if accepted. Date Signed: 08/09/2018 04:10 PM Electronically Signed By:Di Barajas [facility] CM Progress Note CM Note CM Note Notes: Met with Pt to Informed her that because of her out of state insurance, only 40% of her stay and rehab will be covered at [facility] [place]. Pt asked that I contact [facility], so I have Contacted Jenny at [facility] who had agreed to take the Pt, but will have to get Auth again. Updates sent to [facility] and [facility]. Jenny will contact CM tomorrow. CM available for needs. PLAN: SNF Date Signed: 08/10/2018 04:49 PM Electronically Signed By:Di Barajas [facility] CM Progress Note CM Note CM Note Notes: Patient plan of care reviewed in am rounds. 63 year old female with pancreatic cancer, day 4 inpatient status. Will remove barrera catheter today and advance diet. Spoke with patient and family regarding [facility] and out of network insurance requiring 40 % copayment for stay. [facility] resubmitting for authorization today. CM to follow for needs. plan: Likely to [facility] when medically cleared for discharge. Date Signed: 08/11/2018 11:57 AM Electronically Signed By:Mare Soliman RN [facility] CM Progress Note CM Note CM Note Notes: Plan of care reviewed in am rounds. Patient still very symptomatic with bouts of nausea. Patient followed by [facility]. Questionable inner ear etiology to nausea. Slow progress. CM to follow. Plan: To SNF rehab when medically cleared for discharge. Date Signed: 08/14/2018 01:17 PM Electronically Signed By:Maer Soliman RN [facility] CM Progress Note CM Note CM Note Notes: Patient plan of care reviewed in am rounds. The patient continues to experience nausea and vomiting despite medication changes. Her condition is worsening and she may not be able to go to rehab unless some improvement is made. She is followed by [facility] for palliative care at this point and per oncology may need to consider transitioning to hospice at this point. Plan: Unclear at this point. CM to follow for SNF versus inpatient hospice Date Signed: 08/15/2018 03:18 PM Electronically Signed By:Mare Soliman RN Case Management Discharge Plan Note Case Management Discharge Discharge Order Complete? Answers: Yes Patient to Obtain Answers: Other Notes: [facility] to arrange transpor t. Medications Transportation Arranged Answers: Other Notes: [facility] Case Management Transport Answers: Yes Form Complete Faxed Final Orders Answers: Yes Agency/Facility Transfer Answers: Yes Report Printed & Faxed to Receiving Agency Family Notified Answers: Yes Discharge Comments Notes: CM spoke with pt's family to discuss care options. They are agreeable with discharge to [facility]. CM contacted [facility] and submit updates through [employer]. Discussed coordination with pt's family; [facility] RN will come and arrange transportation. Family and RN aware. CM provided support/ education. No other concerns noted at this time. Date Signed: 08/16/2018 03:05 PM Electronically Signed By:HAIDER Marino Intervention Information
[2018-08-16] MEDS: predniSONE 20 MG TAB PO SCH (15:38)
[2018-08-16] MEDS: OXYBUTYNIN 5 MG EXT REL TAB PO SCH (15:38)
[2018-08-16 15:50] VITALS: BP 98/62
[2018-08-17] MEDS ORDERED: PATCH REMOVAL 1 EA PATCH TD SCH (11:07)
[2018-08-21] MEDS ORDERED: predniSONE 10 MG TAB PO SCH (09:00)
[2018-08-28] MEDS ORDERED: predniSONE 20 MG TAB PO SCH (09:00)
[2018-09-04] MEDS ORDERED: predniSONE 10 MG TAB PO SCH (09:00)
[2018-09-11] MEDS ORDERED: predniSONE 20 MG TAB PO SCH (09:00)
[2018-09-18] MEDS ORDERED: predniSONE 10 MG TAB PO SCH (09:00)
[2018-09-25] MEDS ORDERED: predniSONE 10 MG TAB PO SCH (09:00)
[2018-10-02] MEDS ORDERED: predniSONE 5 MG TAB PO SCH (09:00)
== END 2018-08-16 19:44 | disposition hospice, home (50) | DRG 391 ==
LOC: F1N 14:42
PROVIDERS: ADMIT Internal Medicine; ATTEND Internal Medicine
PROC: 30233N1 Transfusion of Nonautologous Red Blood Cells into Peripheral Vein, Percutaneous Approach (ICD-10-PCS; 2018-08-07)
PROC: 0W9G3ZZ Drainage of Peritoneal Cavity, Percutaneous Approach (ICD-10-PCS; 2018-08-08)
PROC: 0DJD8ZZ Inspection of Lower Intestinal Tract, Via Natural or Artificial Opening Endoscopic (ICD-10-PCS; principal; 2018-08-10 10:30)
PROC: 0DBE8ZX Excision of Large Intestine, Via Natural or Artificial Opening Endoscopic, Diagnostic (ICD-10-PCS; principal; 2018-08-10 10:30)
DX: K52.89 Other specified noninfective gastroenteritis and colitis (principal); E43 Unspecified severe protein-calorie malnutrition; R53.1 Weakness; R11.0 Nausea; E86.0 Dehydration; N17.9 Acute kidney failure, unspecified; E87.2 Acidosis; C25.0 Malignant neoplasm of head of pancreas; C78.7 Secondary malignant neoplasm of liver and intrahepatic bile duct; I81 Portal vein thrombosis; R18.8 Other ascites; J91.8 Pleural effusion in other conditions classified elsewhere; E87.1 Hypo-osmolality and hyponatremia; L89.150 Pressure ulcer of sacral region, unstageable; E83.42 Hypomagnesemia; D63.0 Anemia in neoplastic disease; D69.6 Thrombocytopenia, unspecified; K21.9 Gastro-esophageal reflux disease without esophagitis; I10 Essential (primary) hypertension; E11.9 Type 2 diabetes mellitus without complications; J45.909 Unspecified asthma, uncomplicated
CPT/HCPCS: 85520-90; 97116-GP; 97162-GP; 97166-GO; 97530-GO; 97530-GP; J1630; J1644; J2405; J2550; J2704; J2765; J2920; J3475; J3480; J7512; P9016; P9041; Q9967